=== PATIENT | female | born 1965 | race Two or more races ===

== ENCOUNTER 2020-07-24 11:29 | Outpatient (REF) | payer OTHER, SELFPAY ==
--- NOTE | 2020-07-24 11:35 | XR_ITS ---
EXAMINATION: XR KNEE, RIGHT CLINICAL INFORMATION: Pain in the right knee COMPARISON: X-rays of the right knee October 2017 TECHNIQUE: Four views of the right knee. FINDINGS: Bones and soft tissues are normal. No fracture or joint effusion. Alignment is anatomic. Joint spaces are well maintained. No abnormal soft tissue calcification. XR/XR knee RT 4V IMPRESSION: Normal right knee.
--- NOTE | 2020-07-24 11:35 | XR_ITS ---
EXAMINATION: XR ELBOW, RIGHT CLINICAL INFORMATION: Osteochondropathy COMPARISON: None TECHNIQUE: AP, lateral, and oblique views of the right elbow. FINDINGS: There is slight soft tissue prominence overlying the olecranon bursa region The remaining bones joints and soft tissues are unremarkable. XR/XR elbow RT min 3V IMPRESSION: Suspect soft tissue swelling in the region of the olecranon bursa compatible with bursitis of uncertain etiology. Less likely bursal contusion.
== END 2020-07-24 11:30 | disposition home or self-care (01) ==
LOC: HO.XRAY 11:29
PROVIDERS: PCP Physician Assistant; Visit Provider Physician Assistant
DX: M25.561 Pain in right knee (principal); M93.929 Osteochondropathy, unspecified, unspecified upper arm
CPT/HCPCS: 73080; 73564

== ENCOUNTER 2020-10-15 08:21 | Outpatient (REF) | payer OTHER, SELFPAY ==
--- NOTE | 2020-10-15 | US_ITS ---
EXAMINATION: US ABDOMEN COMPLETE CLINICAL INFORMATION: Abdominal pain. COMPARISON: Ultrasound abdomen 04/29/2020. TECHNIQUE: Real-time imaging of the abdominal viscera. FINDINGS: PANCREAS: Normal. ABDOMINAL AORTA: The proximal, mid, and distal segments are normal in caliber. INFERIOR VENA CAVA: Visualized portions are normal. LIVER: The liver is normal size and contour with increased echogenicity. There is an anechoic cyst right hepatic lobe measuring 0.4 x 0.4 x 0.3 cm. There is a solid echogenic lesion in the right hepatic lobe measuring 1.8 x 1.0 x 1.5 cm, consistent with hemangioma. Previously it measured 1.4 x 1.1 x 1.0 cm. There is no intrahepatic biliary duct dilatation seen. GALLBLADDER: Normal. The gallbladder is physiologically distended without evidence of stones, sludge, polyps, wall thickening or pericholecystic fluid. COMMON BILE DUCT: Normal in caliber measuring 0.4 cm in diameter. RIGHT KIDNEY: There is a midpole anechoic cyst measuring 0.6 x 0.5 x 0.7 cm. No hydronephrosis. No renal calculi or focal parenchymal lesions. The kidney measures 10.4 cm in maximum dimension. LEFT KIDNEY: Normal. No hydronephrosis. No renal calculi or focal parenchymal lesions. The kidney measures 10.0 cm in maximum dimension. SPLEEN: Normal. The spleen measures 8.9 cm in maximum dimension. FREE FLUID: None. US/US abdomen complete IMPRESSION: Diffusely echogenic liver with a small hemangioma right hepatic lobe, minimally increased, and new right hepatic cysts. Anechoic cyst right kidney, new.
== END 2020-10-15 08:22 | disposition home or self-care (01) ==
LOC: HO.US 08:21
PROVIDERS: Visit Provider Physician Assistant
DX: R10.9 Unspecified abdominal pain (principal)
CPT/HCPCS: 76700

== ENCOUNTER → 2020-10-30 09:09 | Outpatient (BNVA) | payer OTHER, SELFPAY | PROVIDERS: PCP Family Medicine; Visit Provider Physician Assistant ==

== ENCOUNTER 2020-11-06 08:27 | Outpatient (REF) | payer OTHER, SELFPAY ==
--- NOTE | ~2020-11-06 | XR_ITS ---
EXAMINATION: XR SHOULDER, RIGHT CLINICAL INFORMATION: Enthesopathy. COMPARISON: None TECHNIQUE: AP external rotation, Grashey, scapular Y, and axillary views of the right shoulder. FINDINGS: No fracture or dislocation. Mild AC joint arthritis. Small inferior humeral head osteophyte. Glenohumeral joint space is maintained. No abnormal soft tissue calcification. Visualized right lung is clear. XR/XR shoulder RT min 2V IMPRESSION: Mild arthritic changes, as detailed above. No acute finding.
== END 2020-11-06 08:28 | disposition home or self-care (01) ==
LOC: HO.XRAY 08:27
PROVIDERS: PCP Physician Assistant; Visit Provider Physician Assistant
DX: M77.8 Other enthesopathies, not elsewhere classified (principal)
CPT/HCPCS: 73030

== ENCOUNTER → 2020-11-10 13:26 | Outpatient (BNVA) | payer OTHER, SELFPAY | PROVIDERS: PCP Physician Assistant; Visit Provider Physician Assistant | DX: M75.81 Other shoulder lesions, right shoulder (principal) | CPT/HCPCS: 99202 ==

== ENCOUNTER 2021-01-24 10:04 | Outpatient (REF) | payer OTHER, SELFPAY ==
--- NOTE | ~2021-01-24 | MM_ITS ---
EXAMINATION: MM SCREENING DIGITAL BREAST TOMOSYNTHESIS, BILATERAL CLINICAL INFORMATION: Screening. Asymptomatic. Family history breast cancer, mother. The lifetime risk of breast cancer based on the Tyrer-Cuzick Model is 15%. COMPARISON: Mammography: 09/27/2018, 11/11/2017, 09/20/2017, 09/10/2016; MRI breasts without and with contrast 01/02/2019. TECHNIQUE: Digital breast tomosynthesis is performed in both the craniocaudal and mediolateral oblique views along with computer-aided detection (CAD). Synthesized 2D images are generated from the tomosynthesis. FINDINGS: There are scattered areas of fibroglandular density (ACR BI-RADS breast composition Category b). Breast tissue composition borders on heterogeneously dense. The left MLO view has 5 mm smooth oval nodular asymmetry upper quadrant 6 cm from nipple with partly obscured margins possibly cyst. No definite correlate on CC view. Patient will be recalled for additional imaging. Nodularity central inner right breast on prior exam is decreased since 2019. The remainder of the bilateral breasts are unremarkable. There is no architectural abnormality or abnormal calcifications. The axilla and skin contours are unremarkable. MM/MM tomosynthesis screening BI IMPRESSION: 1. Left: Nodular asymmetric density upper quadrant on MLO view. 2. Right: No significant changes from prior exam. ASSESSMENT: BI-RADS 0: Incomplete - Need Additional Imaging Evaluation RECOMMENDATION: 1. Additional views of the left breast (3D spot MLO; 3D ML). 2. Targeted ultrasound if warranted after review of the additional views. 3. Radiology department staff will contact the patient for additional imaging. This patient's information was entered into a reminder system with a target due date for their next mammogram.
== END 2021-01-24 10:05 | disposition home or self-care (01) ==
LOC: HO.MAMMO 10:04
PROVIDERS: PCP Family Medicine; Visit Provider Family Medicine
DX: Z12.31 Encounter for screening mammogram for malignant neoplasm of breast (principal)
CPT/HCPCS: 77063; 77067

== ENCOUNTER 2021-02-03 14:34 | Outpatient (REF) | payer OTHER, SELFPAY ==
--- NOTE | ~2021-02-03 | US_ITS ---
EXAMINATION: US DIAGNOSTIC ULTRASOUND BREAST, LEFT CLINICAL INFORMATION: Density upper outer quadrant. COMPARISON: Mammography of same day and January 24, 2021 as well as MRI of January 02, 2019.. TECHNIQUE: Ultrasound of the breast is performed with real-time lovell scale imaging and color Doppler. FINDINGS: Multiple simple cysts are present. There is no solid mass, architectural abnormality, duct ectasia, or edema in the soft tissue planes. Results are discussed with the patient at time of visit. US/US breast LT limited IMPRESSION: No suspicious left breast mass. Multiple cysts. ASSESSMENT: BI-RADS 2: Benign RECOMMENDATION: Routine annual mammography screening due in 12 months. This patient's information was entered into a reminder system with a target due date for their next mammogram.
--- NOTE | ~2021-02-03 | MM_ITS ---
EXAMINATION: MM DIAGNOSTIC DIGITAL BREAST TOMOSYNTHESIS, LEFT Targeted left breast ultrasound CLINICAL INFORMATION: Nodular asymmetric density upper quadrant of the left breast. COMPARISON: Mammography: January 24, 2021 and studies dating back to September 08, 2015 TECHNIQUE: Digital breast tomosynthesis is performed. 2D images are generated from the tomosynthesis. The following views are obtained: Full-field 90 degree mediolateral view and mediolateral oblique view. Spot compression mediolateral oblique study. FINDINGS: The breasts are heterogeneously dense, which may obscure small masses (ACR BI-RADS breast composition Category c). No definite residual abnormal dominant mass is seen. No suspicious grouping of microcalcifications. Targeted ultrasound examination to the upper outer quadrant demonstrated numerous simple appearing cysts with no suspicious solid mass identified and no region of abnormal distal sound shadowing is seen. Results are provided to the patient at time of visit by the technologist. MM/MM tomosynthesis added views L IMPRESSION: No specific mammographic or ultrasound findings to suggest malignancy. ASSESSMENT: BI-RADS 2: Benign RECOMMENDATION: Routine annual mammography screening due in 12 months. This patient's information was entered into a reminder system with a target due date for their next mammogram.
== END 2021-02-03 14:35 | disposition home or self-care (01) ==
LOC: HO.MAMMO 14:34
PROVIDERS: Visit Provider Family Medicine
DX: N64.89 Other specified disorders of breast (principal); N63.21 Unspecified lump in the left breast, upper outer quadrant; N60.02 Solitary cyst of left breast
CPT/HCPCS: 76642; 77061; 77065

== ENCOUNTER 2021-04-02 08:01 | Outpatient (REF) | payer OTHER, SELFPAY ==
[2021-04-02 08:37] LABS: MANUAL DIFF FLAG NO
[2021-04-02 08:44] LABS: Basophils Percent Auto 0.3 % (0-2); Eosinophils Absolute Auto 0.1 X10*3/uL (0.0-0.4); Eosinophils Percent Auto 1.5 % (0-4); Hematocrit 37.2 % (37-47); Hemoglobin 12.7 g/dl (12.0-16.0); Imm Gran Abs Auto 0.02 X10*3/uL (0.00-0.03); Imm Gran Pct Auto 0.3 % (0.0-0.4); Lymphocytes Percent Auto 33.6 % (20-40); Mean Corpuscular HGB Conc 34.1 g/dl (31.0-35.0); Mean Corpuscular Hemoglobin 30.1 pg (27.0-33.0); Mean Corpuscular Volume 88.2 fL (80-98); Mean Platelet Volume 10.1 fL (9.4-12.3); Monocytes Absolute Auto 0.5 X10*3/uL (0.1-1.2); Monocytes Percent Auto 7.7 % (2-11); Neutrophils Absolute Auto 3.3 X10*3/uL (2.0-8.3); Neutrophils Percent Auto 56.6 % (45-73); Platelet Count 191 X10*3/uL (160-400); Red Blood Count 4.22 X10*6/uL (4.20-5.50); Red Cell Distribution Width 11.9 % (11.0-16.0); White Blood Count 5.9 X10*3/uL (4.8-10.8)
[2021-04-02 09:26] LABS: Alanine Aminotransferase 14 U/L (0-31); Albumin Level 4.4 g/dL (3.5-5.0); Alkaline Phosphatase 72 U/L (39-117); Anion Gap 11 (12-20); Aspartate Amino Transferase 19 U/L (5-31); Bilirubin Total 0.4 mg/dL (0.0-1.0); Blood Urea Nitrogen 14 mg/dL (9-16); Calcium 9.2 mg/dL (8.4-10.2); Carbon Dioxide 27 mmol/L (22-29); Chloride 106 mmol/L (96-108); Cholesterol 211 mg/dL; Estimated Glomerular Filt Rate > 60; Glucose Random 100 mg/dL (60-115); HDL Cholesterol 46 mg/dL; LDL Cholesterol Calculated 139 mg/dl; Potassium 4.2 mmol/L (3.3-5.1); Sodium 140 mmol/L (135-145); Total Protein 6.9 g/dL (6.5-8.0); Triglycerides 133 mg/dL
[2021-04-02 09:34] LABS: Estimated Average Glucose 108 mg/dL; Hemoglobin A1c % 5.4 %
[2021-04-03 08:23] LABS: HBS Num1 187.82 mIU/mL (0-7.99); ~Hepatitis B Surface Antibody REACTIVE (Nonreactive)
== END 2021-04-02 08:02 | disposition home or self-care (01) ==
LOC: HO.LAB 08:01
PROVIDERS: Referring Provider Physician Assistant; Visit Provider Physician Assistant
DX: Z13.1 Encounter for screening for diabetes mellitus (principal); Z13.220 Encounter for screening for lipoid disorders; R10.11 Right upper quadrant pain; K76.0 Fatty (change of) liver, not elsewhere classified; R74.01 Elevation of levels of liver transaminase levels
CPT/HCPCS: 36415; 80053; 80061; 83036; 85025; 86706

== ENCOUNTER 2021-04-17 07:39 | Outpatient (REF) | payer OTHER, SELFPAY ==
--- NOTE | ~2021-04-17 | CT_ITS ---
EXAMINATION: CT ABDOMEN AND PELVIS WITH CONTRAST CLINICAL INFORMATION: Left lower quadrant pain COMPARISON: Previous abdominal ultrasound October 2020 and abdominal MRI January 2020 TECHNIQUE: Multidetector volumetric images were obtained from the superior aspect of the liver through the pubic symphysis following administration 85 mL of Omnipaque 350 intravenous contrast. Sagittal and coronal reformatted images were obtained on the technologist's workstation. Oral contrast: Yes This CT examination was performed using dose optimization techniques as appropriate, variously including the following: *Automated exposure control *Adjustment of mA and/or kV according to patient size (this includes techniques or standardized protocols for targeted exams where dose is matched to indication/reason for exam; i.e. extremities or head) *Use of iterative reconstruction technique DLP: 316 mGy-cm FINDINGS: LUNG BASES: The visualized lung bases are unremarkable. LIVER, GALLBLADDER, AND BILIARY TREE: The liver is low in attenuation suggestive of fatty infiltration. There is a small 5 mm low-attenuation lesion in the right lobe of the liver axial image 25 series. This is stable previous MRI and probably represents a cyst. No other focal liver lesion is seen. The gallbladder is normal. There is no biliary duct dilatation. PANCREAS: Unremarkable. SPLEEN: Unremarkable. ADRENAL GLANDS: Unremarkable. KIDNEYS AND URETERS: The kidneys are normal in size, shape, and attenuation. No hydronephrosis, hydroureter, or calculi seen. No perinephric stranding. BLADDER: Unremarkable. GASTROINTESTINAL TRACT: There is mild diverticulosis of the colon. No evidence of diverticulitis is seen. The small and large bowel are otherwise unremarkable. The appendix is unremarkable. ABDOMINAL WALL: No significant hernia is appreciated. LYMPH NODES: Normal. VASCULAR: Unremarkable. PELVIC VISCERA: The uterus may have been removed. No pelvic mass is seen. OSSEOUS STRUCTURES: Unremarkable. CT/CT abdomen pelvis w con IMPRESSION: Fatty liver. Stable small liver cyst. Mild diverticulosis of the colon.
[2021-04-17] MEDS: iohexoL 350 MG/ML 100 ML INFUS..BTL IV (10:59)
[2021-04-17] MEDS: Barium Sulfate Oral (Vanilla) 450 ML ORAL.SUSP 900 ML PO (11:00)
== END 2021-04-17 07:40 | disposition home or self-care (01) ==
LOC: HO.CT 07:39
PROVIDERS: Visit Provider Physician Assistant
DX: R10.32 Left lower quadrant pain (principal)
CPT/HCPCS: 74177; Q9967

== ENCOUNTER 2021-07-06 13:30 | Outpatient (REF) | payer OTHER, SELFPAY ==
--- NOTE | ~2021-07-06 | US_ITS ---
EXAMINATION: US COMPLETE ABDOMEN WITH LIVER ELASTOGRAPHY CLINICAL INFORMATION: Fatty liver COMPARISON: Previous abdominal ultrasound October 2020, CT of the abdomen and pelvis April 2021 and abdominal MRI January 2020 TECHNIQUE: Real-time imaging of the abdominal viscera. Noninvasive ultrasound liver fibrosis assessment is performed using Leann ElastPQ point quantification shear wave elastography (pSWE) with a C5-2 MHz transducer. Multiple elastography samples are obtained. FINDINGS: PANCREAS: The head and body the pancreas are normal. The tail isn't well visualized due to bowel gas. ABDOMINAL AORTA: The proximal, middle, and distal aortic segments are normal in caliber. INFERIOR VENA CAVA: Visualized portions are normal. LIVER: Liver echotexture is slightly increased. There is a 5 x 3 x 4 mm cyst in the right lobe of the liver. There is a 1.7 x 1 x 1.1 cm hyperechoic areas seen in the peripheral right lobe the liver near the gallbladder. This is is similar to previous ultrasound exams. No corresponding abnormality is seen on prior CT or MRI exam. The liver is normal in shape and size. No biliary duct dilatation. The right lobe measures 14.6 cm in length. The left lobe measures 10 cm in length. Portal flow is normal/hepatopedal Shear wave liver elastography median stiffness is 1.3 m/s (reference: normal median stiffness is 1.3 m/s or less). IQR/median stiffness to assess sampling precision is 0.18 (reference: good quality data set is IQR/median stiffness of 0.15 or less). GALLBLADDER: Normal. The gallbladder is physiologically distended without evidence of stones, sludge, polyps, wall thickening or pericholecystic fluid. COMMON BILE DUCT: Normal in caliber measuring 0.4 cm in diameter. RIGHT KIDNEY: Normal. No hydronephrosis. No renal calculi or focal parenchymal lesions. The kidney measures 10 cm in maximum dimension. LEFT KIDNEY: Normal. No hydronephrosis. No renal calculi or focal parenchymal lesions. The kidney measures 9.5 cm in maximum dimension. SPLEEN: Normal. The spleen measures 8.6 cm in maximum dimension. FREE FLUID: None. US/US abdomen comp w elastography IMPRESSION: 1. Impression: Slightly echogenic liver. Stable small liver cyst. Stable 1.7 x 1.1 x 1 cm hyperechoic area in the peripheral right lobe the liver from prior ultrasounds. No corresponding abnormality is seen on prior CT or MRI exams. Limited visualization of the tail the pancreas. 2. Liver elastography: Slightly limited due to sampling error. Normal liver stiffness. REFERENCE: Society of Radiologists in Ultrasound Liver Stiffness Thresholds (2020): LIVER STIFFNESS THRESHOLDS: *Liver Stiffness equal or less than 1.3 m/s: High probability of being normal. *Liver Stiffness less than 1.7 m/s: In the absence of other known clinical signs, rules out compensated advanced chronic liver disease. *Liver Stiffness 1.7-2.1 m/s: Suggestive of compensated advanced chronic liver disease but need further test for confirmation. *Liver Stiffness over 2.1 m/s: Rules in compensated advanced chronic liver disease. *Liver Stiffness over 2.4 m/s: Suggestive of clinically significant portal hypertension. QUALITY OF DATA SET: *IQR/Median value equal or less than 0.15 implies a quality data set. *IQR/Median value over 0.15 implies a poor quality data set. SIGNIFICANT CHANGE FROM PRIOR EXAM: Significant change if liver stiffness measurement is 10% or greater from prior exam. OTHER CONSIDERATIONS: The stage of liver fibrosis may be overestimated in the setting of acute hepatitis, liver inflammation, elevated liver function tests, hepatic vascular congestion, obstructive cholestasis, non-fasting state, and infiltrative diseases such as amyloidosis and lymphoma. In some patients with NAFLD, the liver stiffness thresholds for compensated advanced chronic liver disease may be lower. In causes other than viral hepatitis and NAFLD, liver stiffness thresholds are not well established.
== END 2021-07-06 13:31 | disposition home or self-care (01) ==
LOC: HO.US 13:30
PROVIDERS: PCP Physician Assistant; Visit Provider Physician Assistant
DX: K76.0 Fatty (change of) liver, not elsewhere classified (principal); D18.00 Hemangioma unspecified site
CPT/HCPCS: 76705; 76981

== ENCOUNTER 2021-07-29 12:47 | Outpatient (REF) | payer OTHER, SELFPAY ==
[2021-07-29 13:55] LABS: COVID-19 Test Negative (Negative)
== END 2021-07-29 12:48 | disposition home or self-care (01) ==
LOC: HO.LAB 12:47
PROVIDERS: Visit Provider Internal Medicine
DX: Z20.828 Contact with and (suspected) exposure to other viral communicable diseases (principal)
CPT/HCPCS: 36415; 87635; C9803

== ENCOUNTER 2021-09-01 08:21 | Outpatient (REF) | payer OTHER, SELFPAY ==
--- NOTE | ~2021-09-01 | XR_ITS ---
EXAMINATION: XR HIP, RIGHT CLINICAL INFORMATION: Pain COMPARISON: Pelvis x-ray June 2019 TECHNIQUE: Two views of the right hip. FINDINGS: Bones and soft tissues are normal. No fracture. Alignment is anatomic. Hip joint space is maintained. XR/XR hip RT min 2V IMPRESSION: Normal right hip.
--- NOTE | ~2021-09-01 | XR_ITS ---
EXAMINATION: XR HAND, RIGHT CLINICAL INFORMATION: Pain COMPARISON: None TECHNIQUE: PA, lateral, and oblique views of the right hand. FINDINGS: Bone alignment is normal. No fracture or dislocation is seen. There is mild arthritis at the DIP joint of the second finger with small osteophytes. Joint spaces are otherwise normal. There are small soft tissue ossifications or calcifications adjacent to the DIP joint of the second finger. Soft tissues are otherwise unremarkable. XR/XR hand RT 2V IMPRESSION: Mild arthritis at the DIP joint of the second finger. Otherwise unremarkable exam.
== END 2021-09-01 08:22 | disposition home or self-care (01) ==
LOC: HO.XRAY 08:21
PROVIDERS: PCP Physician Assistant; Visit Provider Physician Assistant
DX: M25.551 Pain in right hip (principal); M79.641 Pain in right hand
CPT/HCPCS: 73120; 73502

== ENCOUNTER 2021-09-01 08:53 | Emergency (ER) | payer OTHER, SELFPAY ==
[2021-09-01 09:16] VITALS: BP 132/78; PULSE 94; RESP 18; TEMP 36.7; O2SAT 98; BMI 25.4
[2021-09-01] MEDS: Acetaminophen 325 MG TABLET 975 MG PO (09:37)
--- NOTE | 2021-09-01 10:56 | ED_ITS ---
HPI - Extremity Problem General Chief complaint: Extremity Injury, Upper Stated complaint: Thumb pain Time Seen by Provider: 09/01/21 09:16 Source: patient Mode of arrival: ambulatory Limitations: no limitations History of Present Illness HPI Narrative: 56-year-old female presenting to the ED after she had an outpatient x-ray of her right hand and her right hip from her primary care provider although she found out that she would not get the results today therefore she came to the emergency department for further evaluation and treatment. She reports that she has been having right thumb pain for the past 3 weeks and she is unsure why she did not remember falling or any trauma to the site. She reports that it feels like it gets stuck at times. She also reports atraumatic right hip pain for the past 3 days. Denies any fevers, chills, dizziness, headache, neck pain/stiffness, trouble swallowing or breathing, chest pain or shortness of breath, dyspnea on exertion, orthopnea, palpitations, extremity edema, abdominal pain, back pain, focal weakness, recent travel or sick contacts, history of PVD disorder, history of DVT or PE, recent mobilization surgery, any estrogen usage. Or any other symptoms complaints or concerns at this time. MD Complaint: extremity pain Onset (ago): week(s) (Right thumb pain for 2-3 weeks and right hip pain for the past 3 days) Pain Consistency: constant Location: right, upper extremity and lower extremity Quality: aching Radiation: none Relieving factors: nothing Exacerbating factors: range of motion and palpation Associated symptoms: denies other symptoms Related Data Home Medications Medication Instructions Recorded Confirmed citalopram 20 mg tablet 20 mg PO DAILY 07/10/20 03/23/21 clonazepam 0.5 mg tablet 0.5 mg PO DAILY PRN 07/10/20 03/23/21 olanzapine 5 mg tablet 5 mg PO BEDTIME 07/10/20 03/23/21 omeprazole 20 mg capsule,delayed 20 mg PO DAILY 07/10/20 03/23/21 release Previous Rx's Medication Instructions Recorded leg brace (Knee Support Brace) #1 ea 07/10/20 meloxicam 15 mg tablet 15 mg PO DAILY #30 tab 09/02/20 sumatriptan succinate 25 mg tablet 25 mg PO Q2-4H PRN 30 Days #9 tab 09/30/20 cyclobenzaprine 10 mg tablet 10 mg PO TID PRN 7 Days #21 tab 10/21/20 omeprazole 20 mg capsule,delayed 20 mg PO DAILY #30 cap 10/30/20 release albuterol sulfate 90 mcg/actuation 2 puff INHALATION Q6H PRN 30 Days 02/04/21 aerosol inhaler #8.5 g cetirizine 10 mg capsule (Allergy 10 mg PO DAILY PRN 30 Days #30 cap 02/05/21 Relief (cetirizine)) fluticasone propionate 50 1 spray INTRANASAL DAILY 30 Days 02/05/21 mcg/actuation nasal #16 g spray,suspension meclizine 25 mg tablet 25 mg PO DAILY PRN 14 Days #14 tab 03/23/21 cyclobenzaprine 10 mg tablet 10 mg PO Q8H PRN #14 tab 09/01/21 tramadol 50 mg tablet 50 mg PO Q8H PRN #14 tab 09/01/21 Allergies Allergy/AdvReac Type Severity Reaction Status Date / Time oxycodone [From PERCOCET] Allergy Intermediate VOMITING/DI Verified 09/01/21 09:21 MALU tramadol [TRAMADOL] Allergy Intermediate DIZZINESS Verified 09/01/21 09:21 acetaminophen [Percocet] Allergy Unknown vomitting/d Verified 09/01/21 09:21 jason Review of Systems Review of Systems: Constitutional : No Weight loss, No Fever, No Chills, No Night Sweats, No Fatigue, No Malaise ENT/Mouth : No Hearing loss, No Ear Pain, No Nasal Congestion, No Sinus Pain, No Hoarseness, No sore throat, No Rhinorrhea, No Swallowing Difficulty Eyes: No Eye Pain, No Swelling, No Redness, No Foreign Body, No Discharge, No Vision Changes Cardiovascular : No Chest Pain, No SOB, No Dyspnea on Exertion, No Orthopnea, No Edema, No Palpitations Respiratory : No Cough, No Sputum, No Wheezing, No Smoke Exposure, No Dyspnea Gastrointestinal : No Nausea, No Vomiting, No Diarrhea, No Constipation, No abdominal Pain, No Hematochezia, No Melena Genitourinary : no irregular bleeding, No Dysuria, No Urinary Frequency, No Hematuria, No Urinary Incontinence, No Urgency, No Flank Pain, No Urinary Flow Changes, No Hesitancy Musculoskeletal : + joint pain, No Myalgias, No Joint Swelling Skin : No Skin Lesions, No rash Neuro : No Weakness, No Numbness, No Paresthesias, No Loss of Consciousness, No Dizziness, No Headache Psych : No Anxiety/Panic, No Depression, No SI/HI/AH/VH, No Social Issues, Heme/Lymph: No Bruising, No Bleeding,No Lymphadenopathy Endocrine : No Polyuria, No Polydipsia, No Temperature Intolerance Yes all other systems are reviewed and are negative [facility] Past Medical History Attestation statement: The following information was validated with the patient. Medical History Abdominal pain NAFLD (nonalcoholic fatty liver disease) Surgical History H/O colonoscopy History of breast biopsy History of carpal tunnel surgery of left wrist History of carpal tunnel surgery of right wrist History of hysterectomy History of thumb surgery History of toe surgery Family History Family History Father COPD (chronic obstructive pulmonary disease) Smoker Maternal Aunt Hypertension Sister Breast cancer Mother Hypertension Social History Social History Household Members: Children Housing: Apartment Alcohol intake: never Patient Tobacco Use Status: Never used Tobacco e-Cigarette/Vaping Use: Never Used Second Hand Smoke Exposure: Yes Advance Directives: No Advance Directives Information Provided: Yes Patient : No service: No Current occupational status: employed 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 Blood pressure normal Heart rate normal. Respiration rate normal. Temperature normal. Oxygen saturation normal. Appearance: Alert. Oriented X3. No acute distress. Head: Normal external exam. Normocephalic. Atraumatic. Eyes: PERRLA. EOMI. Conjunctiva and sclera normal. Eyelids normal. ENT: Pharynx normal. Uvula midline. Moist mucous membranes. Neck: Normal inspection. Neck supple. FROM. CVS: Normal heart rate and rhythm. Respiratory: No respiratory distress. Painless inspiration. Skin: Skin warm and dry. Normal skin color. Normal skin turgor. No rashes/lesions/lacerations noted. Extremities: Patient with tenderness palpation to the right thumb at the D IP aspect she has full range of motion no obvious deformities no extremity edema and no signs of infection or obvious ligamentous or tendon injury. Patient with tenderness palpation to the right hip at the lateral aspect no infection soft tissue swelling erythema. Patient has full range of motion of the right hip. No obvious ligamentous or tendon injury to the right hip. No lower extremity edema or calf tenderness is noted. Otherwise all other extremities exhibit normal range of motion and nontender. Neuro: Oriented X 3. No motor deficit. No sensory deficit. Reflexes normal. Normal steady gait. No focal neuro deficits noted. Vascular: + radial pulses/+ 2 distal pedal pulses/+2 dorsalis pedis b/l. Normal cap refill. No cyanosis noted to upper extremity nails and lower extremity toes nails. Course Course Course Narrative: 56-year-old female presenting to the ED after she had an outpatient x-ray of her right hand and her right hip from her primary care provider although she found out that she would not get the results today therefore she came to the emergency department for further evaluation and treatment. She reports that she has been having right thumb pain for the past 3 weeks and she is unsure why she did not remember falling or any trauma to the site. She reports that it feels like it gets stuck at times. She also reports atraumatic right hip pain for the past 3 days. Denies any fevers, chills, dizziness, headache, neck pain/stiffness, trouble swallowing or breathing, chest pain or shortness of breath, dyspnea on exertion, orthopnea, palpitations, extremity edema, abdominal pain, back pain, focal weakness, recent travel or sick contacts, history of PVD disorder, history of DVT or PE, recent mobilization surgery, any estrogen usage. Or any other symptoms complaints or concerns at this time. Patient had outpatient x-rays obtained and decided to come here to have them read faster I was able to contact radiology and x-rays were read and revealed arthritis to the right hand at the 2nd finger otherwise no other acute processes and normal right hip x-ray. Therefore I printed out the results and explained to the patient that most likely she has muscle strains although unable to rule out tendon or ligament injury to the right hand therefore she would need to follow-up with her primary care provider and to return if any new or worsening symptoms. Will treat symptomatically. Patient understands agrees with this. MDM - Extremity (Nontraumatic) Medical Records Attestation: I reviewed the patient's medical records. Imaging Data Right hand/right hip x-rays: Attestation: I personally reviewed and interpreted this imaging study as follows: Radiologist's impression: FINDINGS: Bones and soft tissues are normal. No fracture. Alignment is anatomic. Hip joint space is maintained.? XR/XR hip RT min 2V IMPRESSION: Normal right hip. FINDINGS: Bone alignment is normal. No fracture or dislocation is seen. There is mild arthritis at the DIP joint of the second finger with small osteophytes. Joint spaces are otherwise normal. There are small soft tissue ossifications or calcifications adjacent to the DIP joint of the second finger. Soft tissues are otherwise unremarkable. XR/XR hand RT 2V IMPRESSION: Mild arthritis at the DIP joint of the second finger. Otherwise unremarkable exam. Discharge Plan Discharge Clinical Impression: Arthritis, Strain of muscle of right hip, Pain of right thumb Patient Disposition: Home, Self-Care Instructions: Muscle Strain (ED), Arthralgia (ED), Arthrodesis (DC) Prescriptions: New tramadol 50 mg tablet 50 mg PO Q8H PRN (Reason: pain) Qty: 14 RF: 0 cyclobenzaprine 10 mg tablet 10 mg PO Q8H PRN (Reason: Muscle spasm) Qty: 14 RF: 0 No Action meloxicam 15 mg tablet 15 mg PO DAILY Qty: 30 RF: 3 albuterol sulfate 90 mcg/actuation HFA aerosol inhaler 2 puff inhalation Q6H PRN (Reason: shortness of breath or wheezing) 30 Days Qty: 8.5 RF: 1 fluticasone propionate 50 mcg/actuation spray,suspension 1 spray intranasal DAILY 30 Days Qty: 16 RF: 1 Allergy Relief (cetirizine) 10 mg capsule 10 mg PO DAILY PRN (Reason: allergy symptoms) 30 Days Qty: 30 RF: 3 meclizine 25 mg tablet 25 mg PO DAILY PRN (Reason: dizziness) 14 Days Qty: 14 RF: 0 sumatriptan succinate 25 mg tablet 25 mg PO Q2-4H PRN (Reason: migraine headache) 30 Days Qty: 9 RF: 0 cyclobenzaprine 10 mg tablet 10 mg PO TID PRN (Reason: muscle spasm) 7 Days Qty: 21 RF: 3 citalopram 20 mg tablet 20 mg PO DAILY RF: 0 olanzapine 5 mg tablet 5 mg PO BEDTIME RF: 0 clonazepam 0.5 mg tablet 0.5 mg PO DAILY PRNRF: 0 omeprazole 20 mg capsule,delayed release(DR/EC) 20 mg PO DAILY RF: 0 (DME) Knee Support Brace Misc See Rx Instructions .ROUTE .MEDSUPPLY Qty: 1 RF: 0 omeprazole 20 mg capsule,delayed release(DR/EC) 20 mg PO DAILY Qty: 30 RF: 5 Referrals: Fahad Bee PA-C [Primary Care Provider] - 2 days Print Language: Hungarian
== END 2021-09-01 11:07 | disposition home or self-care (01) ==
PROVIDERS: Emergency Provider Emergency Medicine; PCP Physician Assistant
DX: M79.644 Pain in right finger(s) (principal); S76.011A Strain of muscle, fascia and tendon of right hip, initial encounter; M19.041 Primary osteoarthritis, right hand; X58.XXXA Exposure to other specified factors, initial encounter; Y93.9 Activity, unspecified; Y92.9 Unspecified place or not applicable; Y99.9 Unspecified external cause status
CPT/HCPCS: 99283

== ENCOUNTER → 2021-10-20 10:20 | Outpatient (BNVA) | payer OTHER, SELFPAY | PROVIDERS: PCP Physician Assistant; Visit Provider Orthopaedic Surgery | DX: M65.311 Trigger thumb, right thumb (principal) | CPT/HCPCS: 99202 ==

== ENCOUNTER 2021-11-12 08:27 | Day surgery (SDC) | payer OTHER, SELFPAY ==
[2021-11-12 08:39] VITALS: BP 114/68; PULSE 64; RESP 16; TEMP 37.2; O2SAT 98
[2021-11-12 08:48] VITALS: BMI 24.3
--- NOTE | 2021-11-12 10:45 | MHC.SHP ---
Pre-Procedural Eval Section A Date of Service: 11/12/21 The patient is an INPATIENT: No Changes since office visit: No Cold of Flu in the past 2 weeks, No New Medical Problems, No Changes in Medication and No Patient answered all questions The History & Physical has been completed within 30 days and I have reviewed it.: Yes Section B Chief Complaint: Trigger Thumb Allergies: Allergies Allergy/AdvReac Type Severity Reaction Status Date / Time oxycodone [From PERCOCET] Allergy Intermediate VOMITING/DI Verified 10/20/21 11:16 ZZINESS tramadol [TRAMADOL] Allergy Intermediate DIZZINESS Verified 10/20/21 11:16 acetaminophen [Percocet] Allergy Unknown vomitting/d Verified 10/20/21 11:16 izziness Plan I have reviewed the history and physical and performed a pertinent physical examination on my patient. No changes have occurred unless specified.
--- NOTE | 2021-11-12 10:46 | W.PM.OPN ---
Operative Note Operative Note Date of Service: 11/12/21 Narrative: Operative Note Preop diagnosis: 1. right thumb Trigger finger Postop diagnosis: 1. right thumb Trigger finger Procedure: 1. right thumb A1 dotty release Surgeon: Arlene Smith MD Anesthesia: local block using 1% lidocaine with epinephrine Findings: No locking or catching after A1 dotty release EBL: Less than 5 mL Tourniquet time: None Specimens: None Complications: None Disposition: Brought to recovery room in stable condition Plan: Follow-up for 10-14 days for wound check and suture removal Indications: The patient is 56 years old, with a right trigger thumb that has been unresponsive to nonoperative management. The risks and benefits of operative treatment including but not limited to risk of damage to blood vessels, nerves, tendons, infection, persistent pain, persistent symptoms, recurrence or possible need for additional surgery were discussed with the patient and the patient wishes to proceed with surgery. Procedure: Once consent was obtained a local block was performed in the preop area using a combination of 1% lidocaine with epinephrine. The patient was then brought back to the operating suite and placed on the operative table in supine position. A tourniquet was applied to the proximal aspect of the right upper extremity and the limb was prepped and draped in a standard surgical fashion. Once assured that we had a good block, a 1.5 cm oblique incision was made centered over the A1 dotty of the right thumb . The incision was made through the skin to the subcutaneous tissues using a #15 blade. Careful dissection was made down to the level of the A1 dotty using tenotomy scissors, with care being taken to protect the nearby neurovascular structures. A longitudinal incision was made in the A1 dotty 1st using a #15 blade, then using tenotomy scissors under direct visualization. The A1 dotty was noted to be thickened. Following our A1 dotty release, we no longer saw any locking or catching of the digit with flexion and extension. Once satisfied with our A1 dotty release the wound was copiously irrigated with normal saline and hemostasis was obtained with a brief period of local pressure. The skin edges were reapproximated with some 5.0 nylon suture material and a sterile dressing was applied. The patient appears to have tolerated the procedure well and with no complications. All digits were well vascularized at the conclusion of the case.
[2021-11-12 11:03] VITALS: BP 115/71; PULSE 67; RESP 16; TEMP 36.5; O2SAT 97
== END 2021-11-12 11:32 | disposition home or self-care (01) ==
PROVIDERS: PCP Physician Assistant; Visit Provider Orthopaedic Surgery
PROC: (CPT 26055; principal; 2021-11-12 10:20)
DX: M65.311 Trigger thumb, right thumb (principal); M19.041 Primary osteoarthritis, right hand; K76.0 Fatty (change of) liver, not elsewhere classified; K21.9 Gastro-esophageal reflux disease without esophagitis; Z79.899 Other long term (current) drug therapy; Z88.8 Allergy status to other drugs, medicaments and biological substances
CPT/HCPCS: 26055

== ENCOUNTER → 2021-11-18 10:58 | Outpatient (BNVA) | payer OTHER, SELFPAY | PROVIDERS: PCP Physician Assistant; Referring Provider Physician Assistant; Visit Provider Physician Assistant ==

== ENCOUNTER → 2021-11-24 13:17 | Outpatient (BNVA) | payer OTHER, SELFPAY | PROVIDERS: PCP Physician Assistant; Visit Provider Physician Assistant | DX: Z13.89 Encounter for screening for other disorder (principal) ==

== ENCOUNTER → 2021-11-25 11:21 | Outpatient (BNVA) | payer OTHER, SELFPAY | PROVIDERS: PCP Physician Assistant; Visit Provider Physician Assistant | DX: Z09 Encounter for follow-up examination after completed treatment for conditions other than malignant neoplasm (principal); Z87.39 Personal history of other diseases of the musculoskeletal system and connective tissue | CPT/HCPCS: 99212 ==

== ENCOUNTER → 2022-02-01 14:33 | Outpatient (BNVA) | payer OTHER, SELFPAY | PROVIDERS: PCP Physician Assistant; Visit Provider Physician Assistant | DX: Z13.89 Encounter for screening for other disorder (principal) ==

== ENCOUNTER 2022-02-22 09:12 | Outpatient (REF) | payer OTHER, SELFPAY ==
--- NOTE | ~2022-02-22 | XR_ITS ---
EXAMINATION: XR CERVICAL SPINE CLINICAL INFORMATION: Neck pain COMPARISON: None TECHNIQUE: 3 views of the cervical spine were obtained. FINDINGS: There are no prevertebral soft tissue or bony abnormalities demonstrated. No compression fractures or subluxations are identified. Alignment is maintained at the atlanto-axial articulation. The disc spaces are preserved. No endplate changes are seen. The prevertebral soft tissues are normal. The foramina are patent. XR/XR cervical spine 2V IMPRESSION: Unremarkable examination.
== END 2022-02-22 09:13 | disposition home or self-care (01) ==
LOC: HO.XRAY 09:12
PROVIDERS: PCP Physician Assistant; Visit Provider Nurse Practitioner Family
DX: M54.2 Cervicalgia (principal)
CPT/HCPCS: 72040

== ENCOUNTER 2022-05-05 13:23 | Outpatient (REF) | payer OTHER, SELFPAY ==
--- NOTE | 2022-05-05 15:00 | ECG_ITS ---
Test Reason : orthostatic hypotension Blood Pressure : / mmHG Vent. Rate : 077 BPM Atrial Rate : 077 BPM P-R Int : 206 ms QRS Dur : 090 ms QT Int : 384 ms P-R-T Axes : 064 025 056 degrees QTc Int : 434 ms Normal sinus rhythm Normal ECG When compared with ECG of 03-JAN-2020 16:47, No significant change was found Referred By: Fahad Bee Electronically Signed By:PARISH JORDAN
[2022-05-05 15:43] LABS: Hematocrit 36.4 % (37.0-47.0); Hemoglobin 12.4 g/dl (12.0-16.0); Mean Corpuscular HGB Conc 34.1 g/dl (31.0-35.0); Mean Corpuscular Hemoglobin 29.2 pg (27.0-33.0); Mean Corpuscular Volume 85.8 fL (80.0-98.0); Mean Platelet Volume 10.6 fL (9.4-12.3); Platelet Count 207 X10*3/uL (160-400); Red Blood Count 4.24 X10*6/uL (4.20-5.50); Red Cell Distribution Width 12.1 % (11.0-16.0); White Blood Count 7.4 X10*3/uL (4.8-10.8)
[2022-05-05 16:05] LABS: Anion Gap 15 (12-20); Blood Urea Nitrogen 16 mg/dL (9-16); Calcium 9.1 mg/dL (8.4-10.2); Carbon Dioxide 26 mmol/L (22-29); Chloride 105 mmol/L (96-108); Estimated Glomerular Filt Rate > 60; Glucose Random 99 mg/dL (60-115); Iron 62 mcg/dL (30-160); Percent Iron Saturation 20 % (15-50); Sodium 142 mmol/L (135-145); Total Iron Binding Capacity 311 mcg/dL (228-428); Unsaturated Iron Binding 249 ug/dL
[2022-05-08 00:36] LABS: TS Negative Control Passed; TS Panel A 1; TS Panel B 0; TS Positive Control Passed; TSpotTB Negative (Negative)
== END 2022-05-05 13:24 | disposition home or self-care (01) ==
LOC: HO.LAB 13:23
PROVIDERS: Absent Provider Physician Assistant; PCP Physician Assistant; Visit Provider Nurse Practitioner Family
DX: I95.1 Orthostatic hypotension (principal); D50.9 Iron deficiency anemia, unspecified; Z11.1 Encounter for screening for respiratory tuberculosis
CPT/HCPCS: 36415; 80048; 83540; 85027; 86481; 93005

== ENCOUNTER 2022-08-20 10:27 | Outpatient (REF) | payer OTHER, SELFPAY ==
--- NOTE | ~2022-08-20 | MM_ITS ---
EXAMINATION: MM SCREENING DIGITAL BREAST TOMOSYNTHESIS, BILATERAL CLINICAL INFORMATION: Screening. Asymptomatic. Family history breast cancer, mother. The lifetime risk of breast cancer based on the Tyrer-Cuzick Model is 9%. COMPARISON: Mammography: 02/03/2021, 01/24/2021, 09/27/2018, left breast ultrasound 02/03/2021; outside mammography 09/20/2017 ([facility]). TECHNIQUE: Digital breast tomosynthesis is performed in both the craniocaudal and mediolateral oblique views along with computer-aided detection (CAD). Synthesized 2D images are generated from the tomosynthesis. Additional left MLO view is provided. FINDINGS: There are scattered areas of fibroglandular density (ACR BI-RADS breast composition Category b). Left breast shows no significant changes from prior studies. There is no interval mass or architectural abnormality. Biopsy clip marker again seen central mid 9:00 position. Neither breast shows abnormal calcifications. The axilla and skin contours are unremarkable. Right mammography suggests a 1.3 cm smooth oval equal attenuation mass central mid 12:00 position, with obscured margins, possibly a cyst. MM/MM tomosynthesis screening BI IMPRESSION: Right: -Suspect 1.3 cm oval equal attenuation mass central mid 12:00 position with obscured margins, possibly a cyst. Left: -No mammographic evidence of malignancy. ASSESSMENT: BI-RADS 0: Incomplete - Need Additional Imaging Evaluation RECOMMENDATION: 1. Additional views of the right breast (spot CC, spot ML). 2. Targeted ultrasound if warranted after review of the additional views. 3. Radiology department staff will contact the patient for additional imaging. This patient's information was entered into a reminder system with a target due date for their next mammogram.
== END 2022-08-20 10:28 | disposition home or self-care (01) ==
LOC: HO.MAMMO 10:27
PROVIDERS: PCP Physician Assistant; Visit Provider Physician Assistant
DX: Z12.31 Encounter for screening mammogram for malignant neoplasm of breast (principal)
CPT/HCPCS: 77063; 77067

== ENCOUNTER 2022-09-03 13:29 | Outpatient (REF) | payer OTHER, SELFPAY | END 2022-09-03 13:30 | disposition home or self-care (01) | LOC: HO.MAMMO 13:29 | PROVIDERS: PCP Physician Assistant; Visit Provider Physician Assistant | DX: R92.2 Inconclusive mammogram (principal) | CPT/HCPCS: 76642; 77061; 77065 ==

== ENCOUNTER 2022-11-18 12:29 | Emergency (ER) | payer OTHER, SELFPAY ==
--- NOTE | ~2022-11-18 | XR_ITS ---
EXAMINATION: XR CHEST CLINICAL INFORMATION: Chest pain and shortness of breath COMPARISON: 01/03/2020 TECHNIQUE: 2 views of the chest were obtained. FINDINGS: No significant abnormality is noted involving the heart, lungs, mediastinum, bony thorax or soft tissues. XR/XR chest 2V IMPRESSION: Unremarkable examination.
--- NOTE | 2022-11-18 12:36 | ED_ITS ---
HPI - Chest Pain General Chief Complaint: Chest Pain <Smiley Whitley CNP - Last Filed: 11/18/22 12:43> Stated Complaint: Chest Pain <Smiley Whitley CNP - Last Filed: 11/18/22 12:43> Time Seen by Provider: 11/18/22 17:02 <Smiley Whitley CNP - Last Filed: 11/18/22 12:43> Source: patient <Main Chau MD - Last Filed: 11/19/22 01:35> Mode of arrival: ambulatory <Main Chau MD - Last Filed: 11/19/22 01:35> Limitations: no limitations <Main Chau MD - Last Filed: 11/19/22 01:35> History of Present Illness HPI narrative: Patient with multiple complaints complaining of whole body aches for last 2 weeks poor sleep no shortness of breath nausea no vomiting does have chest pain back pain extremity pain supposed the PCP next patient taking Tylenol/ ibuprofen without much relief denies significant depression does have anxiety no shortness of breath not on any statins <Main Chau MD - Last Filed: 11/19/22 01:35> Related Data Home Medications: Previous Rx's Medication Instructions Recorded albuterol sulfate 90 mcg/actuation 2 puff inhalation Q6H PRN 02/04/21 aerosol inhaler shortness of breath or wheezing 30 days #8.5 grams fluticasone propionate 50 1 spray intranasal DAILY 30 days 02/05/21 mcg/actuation nasal #16 grams spray,suspension omeprazole 20 mg capsule,delayed 20 mg PO DAILY #30 caps 11/24/21 release pantoprazole 20 mg tablet,delayed 20 mg PO QAM #30 tabs 02/01/22 release cetirizine 10 mg capsule (Allergy 10 mg PO DAILY PRN allergy 02/15/22 Relief (cetirizine)) symptoms 30 days #30 caps comp.stocking,knee,long,medium #2 ea 05/11/22 midodrine 5 mg tablet 5 mg PO BID 30 days #60 tabs 11/16/22 cyclobenzaprine 10 mg tablet 10 mg PO BID muscle spasm 14 days 11/17/22 #28 tabs ibuprofen 600 mg tablet 600 mg PO Q6H PRN fever or pain 11/18/22 #30 tabs <Smiley Whitley CNP - Last Filed: 11/18/22 12:43> Allergies/Adverse Reactions: Allergies Allergy/AdvReac Type Severity Reaction Status Date / Time oxycodone [From PERCOCET] Allergy Intermediate VOMITING/DI Verified 05/05/22 14:27 ZZINESS tramadol [TRAMADOL] Allergy Intermediate DIZZINESS Verified 05/05/22 14:27 acetaminophen [Percocet] Allergy Unknown vomitting/d Verified 05/05/22 14:27 izziness <Smiley Whitley CNP - Last Filed: 11/18/22 12:43> Review of Systems Review of Systems: Constitutional : No Weight loss, No Fever, No Chills ENT/Mouth : No sore throat, No Rhinorrhea Eyes: No Eye Pain, No Swelling Cardiovascular : No Chest Pain, no palpitations Respiratory : No Cough, No Sputum, no shortness of breath Gastrointestinal : no Nausea, No Vomiting, No Diarrhea, No abdominal Pain, no black stools Genitourinary : No Dysuria, No Urinary Frequency Musculoskeletal : No joint pain, ++ Myalgias, No Joint Swelling Skin : No Skin Lesions, No rash Neuro : No Weakness, No Numbness, No Dizziness, No Headache Psych : No Anxiety/Panic, No Depression Heme/Lymph: No Bruising, No Lymphadenopathy Endocrine : No Polyuria, No Polydipsia All other systems reviewed and are negative <Main Chau MD - Last Filed: 11/19/22 01:35> Yes all other systems are reviewed and are negative <Main Chau MD - Last Filed: 11/19/22 01:35> PMFSH Past Medical History Medical History: Medical History Abdominal pain Acid reflux NAFLD (nonalcoholic fatty liver disease) <Smiley Whitley CNP - Last Filed: 11/18/22 12:43> Surgical History: Surgical History H/O colonoscopy History of breast biopsy History of carpal tunnel surgery of left wrist History of carpal tunnel surgery of right wrist History of hysterectomy History of thumb surgery History of toe surgery <Smiley WhitleyKIEL - Last Filed: 11/18/22 12:43> Family History Family History: Family History Father COPD (chronic obstructive pulmonary disease) Smoker Maternal Aunt Hypertension Sister Breast cancer Mother Hypertension <Smiley Whitley PHOTOCOPIER TECHNICIAN - Last Filed: 11/18/22 12:43> Social History Social History: Social History Household Members: Children Housing: Apartment Alcohol intake: never Patient Tobacco Use Status: Never used Tobacco e-Cigarette/Vaping Use: Never Used Second Hand Smoke Exposure: Yes Advance Directives: No Advance Directives Information Provided: No service: No Current occupational status: unemployed 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 Cognitive needs: No Hearing needs: No Vision needs: Yes <Smiley Whitley KIEL - Last Filed: 11/18/22 12:43> Physical Exam Vital Signs: Vital Signs: Last Vital Signs Temp 97.8 F 11/18/22 17:53 Pulse 59 11/18/22 17:53 Resp 16 11/18/22 17:53 BP 134/77 11/18/22 17:53 Pulse Ox 97 11/18/22 17:53 O2 Del Method 11/18/22 17:53 BMI result Body Mass Index 26.4 <Smiley Whitley PHOTOCOPIER TECHNICIAN - Last Filed: 11/18/22 12:43> Vital Signs: Last Vital Signs Temp 97.8 F 11/18/22 17:53 Pulse 59 11/18/22 17:53 Resp 16 11/18/22 17:53 BP 134/77 11/18/22 17:53 Pulse Ox 97 11/18/22 17:53 O2 Del Method 11/18/22 17:53 BMI result Body Mass Index 26.4 <Main Chau MD - Last Filed: 11/19/22 01:35> Appearance: Alert. Oriented X3. No acute distress. Eyes: PERRLA, No Nystagmus ENT: Pharynx normal. Oral Mucosa moist Neck: Normal inspection. Neck supple. CVS: Normal heart rate and rhythm. Pulses normal. Respiratory: No respiratory distress. Equal air entry bilateral, no wheezing/rales/rhonchi Abdomen: Soft and nontender. Bowel sounds are present, no mass palpable, no CVA tenderness Skin: Skin warm and dry. Normal skin color. Normal skin turgor. Extremities: No lower extremity edema. No calf tenderness Neuro: Oriented X 3. No motor deficit. No sensory deficit.No cerebellar signs , cranial nerves II-XII intact <Main Chau MD - Last Filed: 11/19/22 01:35> Course Course Course Narrative: This is an RME: Additional HPI, ROS, PE not included below will be d eferred to primary provider. Patient is a 57-year-old female who presents to the emergency department for evaluation of body aches, onset 2 weeks ago. Reports chest pain and shortness of breath on exertion. Took a COVID-19 test today which was negative. Denies fever, chills, cough, rhinorrhea, nausea, vomiting, ABD pain, recent unintentional weight loss. Was unable to be seen by her PCP, so she came to ED today as symptoms not improving. Denies any known sick contacts. Plan: labs, viral testing, CXR, EKG <Smiley Whitley CNP - Last Filed: 11/18/22 12:43> Medical Decision Making Medical Decision Making [facility] Narrative: . Multiple complaints his poor sleep likely with anxiety and depression basic workup is negative <Main Chau MD - Last Filed: 11/19/22 01:35> Lab Data [facility] Lab Attestation statement: I reviewed the patient's lab results. <Main Chau MD - Last Filed: 11/19/22 01:35> Result Diagrams: 11/18/22 13:04 <Smiley Whitley CNP - Last Filed: 11/18/22 12:43> Labs: Lab Results 11/18/22 11/18/22 11/18/22 Range/Units 13:04 13:04 13:04 WBC (4.8-10.8) X10*3/uL RBC (4.20-5.50) X10*6/uL Hgb (12.0-16.0) g/dl Hct (37.0-47.0) % MCV (80.0-98.0) fL MCH (27.0-33.0) pg MCHC (31.0-35.0) g/dl RDW (11.0-16.0) % Plt Count (160-400) X10*3/uL MPV (9.4-12.3) fL Immature Gran % (Auto) (0.0-0.4) % Neut % (Auto) (45-73) % Lymph % (Auto) (20-40) % [place] % (Auto) (2-11) % Eos % (Auto) (0-4) % Baso % (Auto) (0-2) % Lymph # (Auto) (1.2-4.9) X10*3/uL [place] # (Auto) (0.1-1.2) X10*3/uL Eos # (Auto) (0.0-0.4) X10*3/uL Baso # (Auto) (0.0-0.2) X10*3/uL Abs Immat Gran (auto) (0.00-0.03) X10*3/uL Absolute Neuts (auto) (2.0-8.3) x10*3/uL Absolute Nucleated RBC (0.0-0.012) X10*3/uL Nucleated RBC % (auto) (0.0-0.2) /100WBC PT Cancelled INR Cancelled Sodium 140 (135-145) mmol/L Potassium 3.8 (3.3-5.1) mmol/L Chloride 107 (96-108) mmol/L Carbon Dioxide 24 (22-29) mmol/L Anion Gap 13 (12-20) BUN 17 H (9-16) mg/dL Creatinine 0.67 (0.5-1.4) mg/dL Estim Creat Clear Calc 80.9 Estimated GFR > 60 Random Glucose 97 (60-115) mg/dL Calcium 9.0 (8.4-10.2) mg/dL Total Bilirubin 0.4 (0.0-1.0) mg/dL AST 20 (5-31) U/L ALT 22 (0-31) U/L Alkaline Phosphatase 72 (39-117) U/L Total Creatine Kinase 118 (26-140) U/L Troponin I High Sens (<3.5-17.0) ng/L B-Natriuretic Peptide (<100) pg/mL Total Protein 7.0 (6.5-8.0) g/dL Albumin 4.4 (3.5-5.0) g/dL Lipase 23 (8-78) U/L Urine Color Urine Appearance Urine pH (5.0-9.0) Ur Specific [place] (1.005-1.025) Urine Protein (Neg-Trace) mg/dL Urine Glucose (UA) (Negative) mg/dL Urine Ketones (Negative) mg/dL Urine Blood (Negative) Urine Nitrite (Negative) Ur Leukocyte Esterase (Negative) COVID-19 (MARC) Negative (Negative) COVID-19 Clin Com See Note Influenza Type A (CHRISTIAN) (Negative) Influenza Type B (CHRISTIAN) (Negative) Influenza A & B Note 11/18/22 11/18/22 11/18/22 Range/Units 13:04 13:04 13:04 WBC (4.8-10.8) X10*3/uL RBC (4.20-5.50) X10*6/uL Hgb (12.0-16.0) g/dl Hct (37.0-47.0) % MCV (80.0-98.0) fL MCH (27.0-33.0) pg MCHC (31.0-35.0) g/dl RDW (11.0-16.0) % Plt Count (160-400) X10*3/uL MPV (9.4-12.3) fL Immature Gran % (Auto) (0.0-0.4) % Neut % (Auto) (45-73) % Lymph % (Auto) (20-40) % [place] % (Auto) (2-11) % Eos % (Auto) (0-4) % Baso % (Auto) (0-2) % Lymph # (Auto) (1.2-4.9) X10*3/uL [place] # (Auto) (0.1-1.2) X10*3/uL Eos # (Auto) (0.0-0.4) X10*3/uL Baso # (Auto) (0.0-0.2) X10*3/uL Abs Immat Gran (auto) (0.00-0.03) X10*3/uL Absolute Neuts (auto) (2.0-8.3) x10*3/uL Absolute Nucleated RBC (0.0-0.012) X10*3/uL Nucleated RBC % (auto) (0.0-0.2) /100WBC PT INR Sodium (135-145) mmol/L Potassium (3.3-5.1) mmol/L Chloride (96-108) mmol/L Carbon Dioxide (22-29) mmol/L Anion Gap (12-20) BUN (9-16) mg/dL Creatinine (0.5-1.4) mg/dL Estim Creat Clear Calc Estimated GFR Random Glucose (60-115) mg/dL Calcium (8.4-10.2) mg/dL Total Bilirubin (0.0-1.0) mg/dL AST (5-31) U/L ALT (0-31) U/L Alkaline Phosphatase (39-117) U/L Total Creatine Kinase (26-140) U/L Troponin I High Sens < 3.5 (<3.5-17.0) ng/L B-Natriuretic Peptide 17 (<100) pg/mL Total Protein (6.5-8.0) g/dL Albumin (3.5-5.0) g/dL Lipase (8-78) U/L Urine Color Urine Appearance Urine pH (5.0-9.0) Ur Specific [place] (1.005-1.025) Urine Protein (Neg-Trace) mg/dL Urine Glucose (UA) (Negative) mg/dL Urine Ketones (Negative) mg/dL Urine Blood (Negative) Urine Nitrite (Negative) Ur Leukocyte Esterase (Negative) COVID-19 (MARC) (Negative) COVID-19 Clin Com Influenza Type A (CHRISTIAN) Negative (Negative) Influenza Type B (CHRISTIAN) Negative (Negative) Influenza A & B Note See Note 11/18/22 11/18/22 Range/Units 17:33 17:50 WBC 7.6 (4.8-10.8) X10*3/uL RBC 4.21 (4.20-5.50) X10*6/uL Hgb 12.3 (12.0-16.0) g/dl Hct 36.5 L (37.0-47.0) % MCV 86.7 (80.0-98.0) fL MCH 29.2 (27.0-33.0) pg MCHC 33.7 (31.0-35.0) g/dl RDW 11.9 (11.0-16.0) % Plt Count 212 (160-400) X10*3/uL MPV 9.9 (9.4-12.3) fL Immature Gran % (Auto) 0.3 (0.0-0.4) % Neut % (Auto) 52.9 (45-73) % Lymph % (Auto) 37.6 (20-40) % [place] % (Auto) 8.1 (2-11) % Eos % (Auto) 0.8 (0-4) % Baso % (Auto) 0.3 (0-2) % Lymph # (Auto) 2.8 (1.2-4.9) X10*3/uL [place] # (Auto) 0.6 (0.1-1.2) X10*3/uL Eos # (Auto) 0.1 (0.0-0.4) X10*3/uL Baso # (Auto) 0.0 (0.0-0.2) X10*3/uL Abs Immat Gran (auto) 0.02 (0.00-0.03) X10*3/uL Absolute Neuts (auto) 4.0 (2.0-8.3) x10*3/uL Absolute Nucleated RBC 0.000 (0.0-0.012) X10*3/uL Nucleated RBC % (auto) 0.0 (0.0-0.2) /100WBC PT INR Sodium (135-145) mmol/L Potassium (3.3-5.1) mmol/L Chloride (96-108) mmol/L Carbon Dioxide (22-29) mmol/L Anion Gap (12-20) BUN (9-16) mg/dL Creatinine (0.5-1.4) mg/dL Estim Creat Clear Calc Estimated GFR Random Glucose (60-115) mg/dL Calcium (8.4-10.2) mg/dL Total Bilirubin (0.0-1.0) mg/dL AST (5-31) U/L ALT (0-31) U/L Alkaline Phosphatase (39-117) U/L Total Creatine Kinase (26-140) U/L Troponin I High Sens (<3.5-17.0) ng/L B-Natriuretic Peptide (<100) pg/mL Total Protein (6.5-8.0) g/dL Albumin (3.5-5.0) g/dL Lipase (8-78) U/L Urine Color Yellow Urine Appearance Clear Urine pH 5.5 (5.0-9.0) Ur Specific [place] 1.025 (1.005-1.025) Urine Protein Negative (Neg-Trace) mg/dL Urine Glucose (UA) Negative (Negative) mg/dL Urine Ketones Negative (Negative) mg/dL Urine Blood Negative (Negative) Urine Nitrite Negative (Negative) Ur Leukocyte Esterase Negative (Negative) COVID-19 (MARC) (Negative) COVID-19 Clin Com Influenza Type A (CHRISTIAN) (Negative) Influenza Type B (CHRISTIAN) (Negative) Influenza A & B Note <Smiley Whitley, PHOTOCOPIER TECHNICIAN - Last Filed: 11/18/22 12:43> Lab Results 11/18/22 11/18/22 11/18/22 Range/Units 13:04 13:04 13:04 WBC (4.8-10.8) X10*3/uL RBC (4.20-5.50) X10*6/uL Hgb (12.0-16.0) g/dl Hct (37.0-47.0) % MCV (80.0-98.0) fL MCH (27.0-33.0) pg MCHC (31.0-35.0) g/dl RDW (11.0-16.0) % Plt Count (160-400) X10*3/uL MPV (9.4-12.3) fL Immature Gran % (Auto) (0.0-0.4) % Neut % (Auto) (45-73) % Lymph % (Auto) (20-40) % [place] % (Auto) (2-11) % Eos % (Auto) (0-4) % Baso % (Auto) (0-2) % Lymph # (Auto) (1.2-4.9) X10*3/uL [place] # (Auto) (0.1-1.2) X10*3/uL Eos # (Auto) (0.0-0.4) X10*3/uL Baso # (Auto) (0.0-0.2) X10*3/uL Abs Immat Gran (auto) (0.00-0.03) X10*3/uL Absolute Neuts (auto) (2.0-8.3) x10*3/uL Absolute Nucleated RBC (0.0-0.012) X10*3/uL Nucleated RBC % (auto) (0.0-0.2) /100WBC PT Cancelled INR Cancelled Sodium 140 (135-145) mmol/L Potassium 3.8 (3.3-5.1) mmol/L Chloride 107 (96-108) mmol/L Carbon Dioxide 24 (22-29) mmol/L Anion Gap 13 (12-20) BUN 17 H (9-16) mg/dL Creatinine 0.67 (0.5-1.4) mg/dL Estim Creat Clear Calc 80.9 Estimated GFR > 60 Random Glucose 97 (60-115) mg/dL Calcium 9.0 (8.4-10.2) mg/dL Total Bilirubin 0.4 (0.0-1.0) mg/dL AST 20 (5-31) U/L ALT 22 (0-31) U/L Alkaline Phosphatase 72 (39-117) U/L Total Creatine Kinase 118 (26-140) U/L Troponin I High Sens (<3.5-17.0) ng/L B-Natriuretic Peptide (<100) pg/mL Total Protein 7.0 (6.5-8.0) g/dL Albumin 4.4 (3.5-5.0) g/dL Lipase 23 (8-78) U/L Urine Color Urine Appearance Urine pH (5.0-9.0) Ur Specific [place] (1.005-1.025) Urine Protein (Neg-Trace) mg/dL Urine Glucose (UA) (Negative) mg/dL Urine Ketones (Negative) mg/dL Urine Blood (Negative) Urine Nitrite (Negative) Ur Leukocyte Esterase (Negative) COVID-19 (MARC) Negative (Negative) COVID-19 Clin Com See Note Influenza Type A (CHRISTIAN) (Negative) Influenza Type B (CHRISTIAN) (Negative) Influenza A & B Note 11/18/22 11/18/22 11/18/22 Range/Units 13:04 13:04 13:04 WBC (4.8-10.8) X10*3/uL RBC (4.20-5.50) X10*6/uL Hgb (12.0-16.0) g/dl Hct (37.0-47.0) % MCV (80.0-98.0) fL MCH (27.0-33.0) pg MCHC (31.0-35.0) g/dl RDW (11.0-16.0) % Plt Count (160-400) X10*3/uL MPV (9.4-12.3) fL Immature Gran % (Auto) (0.0-0.4) % Neut % (Auto) (45-73) % Lymph % (Auto) (20-40) % [place] % (Auto) (2-11) % Eos % (Auto) (0-4) % Baso % (Auto) (0-2) % Lymph # (Auto) (1.2-4.9) X10*3/uL [place] # (Auto) (0.1-1.2) X10*3/uL Eos # (Auto) (0.0-0.4) X10*3/uL Baso # (Auto) (0.0-0.2) X10*3/uL Abs Immat Gran (auto) (0.00-0.03) X10*3/uL Absolute Neuts (auto) (2.0-8.3) x10*3/uL Absolute Nucleated RBC (0.0-0.012) X10*3/uL Nucleated RBC % (auto) (0.0-0.2) /100WBC PT INR Sodium (135-145) mmol/L Potassium (3.3-5.1) mmol/L Chloride (96-108) mmol/L Carbon Dioxide (22-29) mmol/L Anion Gap (12-20) BUN (9-16) mg/dL Creatinine (0.5-1.4) mg/dL Estim Creat Clear Calc Estimated GFR Random Glucose (60-115) mg/dL Calcium (8.4-10.2) mg/dL Total Bilirubin (0.0-1.0) mg/dL AST (5-31) U/L ALT (0-31) U/L Alkaline Phosphatase (39-117) U/L Total Creatine Kinase (26-140) U/L Troponin I High Sens < 3.5 (<3.5-17.0) ng/L B-Natriuretic Peptide 17 (<100) pg/mL Total Protein (6.5-8.0) g/dL Albumin (3.5-5.0) g/dL Lipase (8-78) U/L Urine Color Urine Appearance Urine pH (5.0-9.0) Ur Specific [place] (1.005-1.025) Urine Protein (Neg-Trace) mg/dL Urine Glucose (UA) (Negative) mg/dL Urine Ketones (Negative) mg/dL Urine Blood (Negative) Urine Nitrite (Negative) Ur Leukocyte Esterase (Negative) COVID-19 (MARC) (Negative) COVID-19 Clin Com Influenza Type A (CHRISTIAN) Negative (Negative) Influenza Type B (CHRISTIAN) Negative (Negative) Influenza A & B Note See Note 11/18/22 11/18/22 Range/Units 17:33 17:50 WBC 7.6 (4.8-10.8) X10*3/uL RBC 4.21 (4.20-5.50) X10*6/uL Hgb 12.3 (12.0-16.0) g/dl Hct 36.5 L (37.0-47.0) % MCV 86.7 (80.0-98.0) fL MCH 29.2 (27.0-33.0) pg MCHC 33.7 (31.0-35.0) g/dl RDW 11.9 (11.0-16.0) % Plt Count 212 (160-400) X10*3/uL MPV 9.9 (9.4-12.3) fL Immature Gran % (Auto) 0.3 (0.0-0.4) % Neut % (Auto) 52.9 (45-73) % Lymph % (Auto) 37.6 (20-40) % [place] % (Auto) 8.1 (2-11) % Eos % (Auto) 0.8 (0-4) % Baso % (Auto) 0.3 (0-2) % Lymph # (Auto) 2.8 (1.2-4.9) X10*3/uL [place] # (Auto) 0.6 (0.1-1.2) X10*3/uL Eos # (Auto) 0.1 (0.0-0.4) X10*3/uL Baso # (Auto) 0.0 (0.0-0.2) X10*3/uL Abs Immat Gran (auto) 0.02 (0.00-0.03) X10*3/uL Absolute Neuts (auto) 4.0 (2.0-8.3) x10*3/uL Absolute Nucleated RBC 0.000 (0.0-0.012) X10*3/uL Nucleated RBC % (auto) 0.0 (0.0-0.2) /100WBC PT INR Sodium (135-145) mmol/L Potassium (3.3-5.1) mmol/L Chloride (96-108) mmol/L Carbon Dioxide (22-29) mmol/L Anion Gap (12-20) BUN (9-16) mg/dL Creatinine (0.5-1.4) mg/dL Estim Creat Clear Calc Estimated GFR Random Glucose (60-115) mg/dL Calcium (8.4-10.2) mg/dL Total Bilirubin (0.0-1.0) mg/dL AST (5-31) U/L ALT (0-31) U/L Alkaline Phosphatase (39-117) U/L Total Creatine Kinase (26-140) U/L Troponin I High Sens (<3.5-17.0) ng/L B-Natriuretic Peptide (<100) pg/mL Total Protein (6.5-8.0) g/dL Albumin (3.5-5.0) g/dL Lipase (8-78) U/L Urine Color Yellow Urine Appearance Clear Urine pH 5.5 (5.0-9.0) Ur Specific [place] 1.025 (1.005-1.025) Urine Protein Negative (Neg-Trace) mg/dL Urine Glucose (UA) Negative (Negative) mg/dL Urine Ketones Negative (Negative) mg/dL Urine Blood Negative (Negative) Urine Nitrite Negative (Negative) Ur Leukocyte Esterase Negative (Negative) COVID-19 (MARC) (Negative) COVID-19 Clin Com Influenza Type A (CHRISTIAN) (Negative) Influenza Type B (CHRISTIAN) (Negative) Influenza A & B Note <Main Chau MD - Last Filed: 11/19/22 01:35> Independent Interpretation I performed an independent interpretation of an: EKG <Main Chau MD - Last Filed: 11/19/22 01:35> Interpretation: Normal sinus rhythm heart rate 76 beats per minute normal interval normal axis impression normal EKG <Main Chau MD - Last Filed: 11/19/22 01:35> Discharge Plan Discharge Clinical Impression: Musculoskeletal arm pain <Smiley Whitley CNP - Last Filed: 11/18/22 12:43> Patient Disposition: Home, Self-Care <Smiley Whitley CNP - Last Filed: 11/18/22 12:43> Instructions: Musculoskeletal Pain (ED) <Smiley Whitley CNP - Last Filed: 11/18/22 12:43> Additional Instructions: Take ibuprofen for pain Drink plenty of fluids Follow with PCP <Smiley Whitley CNP - Last Filed: 11/18/22 12:43> Prescriptions: New ibuprofen 600 mg tablet 600 mg PO Q6H PRN (Reason: fever or pain) Qty: 30 0RF No Action albuterol sulfate 90 mcg/actuation HFA aerosol inhaler 2 puff inhalation Q6H PRN (Reason: shortness of breath or wheezing) 30 Days Qty: 8.5 1RF fluticasone propionate 50 mcg/actuation spray,suspension 1 spray intranasal DAILY 30 Days Qty: 16 1RF Rx Instructions: administer into each nostril Allergy Relief (cetirizine) 10 mg capsule 10 mg PO DAILY PRN (Reason: allergy symptoms) 30 Days Qty: 30 3RF (DME) comp.stocking,knee,long,medium Misc See Rx Instructions .Route Qty: 2 0RF Rx Instructions: As directed midodrine 5 mg tablet 5 mg PO BID 30 Days Qty: 60 3RF Rx Instructions: do not give last dose of day after 6PM or within 4 hrs of bedtime cyclobenzaprine 10 mg tablet 10 mg PO BID 14 Days Qty: 28 0RF omeprazole 20 mg capsule,delayed release(DR/EC) 20 mg PO DAILY Qty: 30 5RF pantoprazole 20 mg tablet,delayed release (DR/EC) 20 mg PO QAM Qty: 30 6RF <Smiley Whitley CNP - Last Filed: 11/18/22 12:43> Stand Alone Forms: Work/School Release <Smiley Whitley CNP - Last Filed: 11/18/22 12:43> Interventions: ED Discharge Assessment Last Done: 11/18/22 18:25 <Smiley Whitley CNP - Last Filed: 11/18/22 12:43> Discharge Date/Time: 11/18/22 18:26 <Smiley Whitley CNP - Last Filed: 11/18/22 12:43>
[2022-11-18 12:38] VITALS: BP 142/86; PULSE 87; RESP 16; TEMP 36.1; O2SAT 98; BMI 26.4
--- NOTE | 2022-11-18 12:42 | ECG_ITS ---
Test Reason : chest pain Blood Pressure : / mmHG Vent. Rate : 076 BPM Atrial Rate : 076 BPM P-R Int : 196 ms QRS Dur : 090 ms QT Int : 388 ms P-R-T Axes : 052 009 041 degrees QTc Int : 436 ms Normal sinus rhythm Normal ECG When compared with ECG of 05-MAY-2022 14:57, No significant change was found Referred By: Smiley Whitley Electronically Signed By:KARIS MOISE
[2022-11-18 13:27] LABS: COVID-19 Test Negative (Negative); IDNOW Serial# 16C4AD1C
[2022-11-18 13:29] LABS: IDNOW Serial# 9DB6401D; Influenza A Negative (Negative); Influenza B2 Negative (Negative)
[2022-11-18 13:32] LABS: B Type Natriuretic Peptide 17 pg/mL (<100)
[2022-11-18 14:58] LABS: Alanine Aminotransferase 22 U/L (0-31); Albumin Level 4.4 g/dL (3.5-5.0); Alkaline Phosphatase 72 U/L (39-117); Anion Gap 13 (12-20); Aspartate Amino Transferase 20 U/L (5-31); Bilirubin Total 0.4 mg/dL (0.0-1.0); Blood Urea Nitrogen 17 mg/dL (9-16); Carbon Dioxide 24 mmol/L (22-29); Chloride 107 mmol/L (96-108); Creatinine Clr Calc Pharmacy 80.9; Estimated Glomerular Filt Rate > 60; Glucose Random 97 mg/dL (60-115); Lipase 23 U/L (8-78); Potassium 3.8 mmol/L (3.3-5.1); Sodium 140 mmol/L (135-145)
[2022-11-18 15:09] LABS: Troponin-I High Sensitivity < 3.5 ng/L (<3.5-17.0)
[2022-11-18 16:58] VITALS: BP 150/77; PULSE 75; RESP 22; TEMP 37.3; O2SAT 99
[2022-11-18 17:41] LABS: Appearance Urine Clear; Color Urine Yellow; Glucose Urine UA Negative (Negative); Leukocyte Esterase Urine Negative (Negative); Nitrite Urine Negative (Negative); PH 5.5 (5.0-9.0); Specific Gravity - Urine 1.025 (1.005-1.025); Urine Blood Negative (Negative); Urine Ketones Negative (Negative); Urine Protein Negative (Neg-Trace)
--- NOTE | 2022-11-18 17:52 | MHC.EDTECH ---
pt cbc drawn and sent to lab .
[2022-11-18 17:53] VITALS: BP 134/77; PULSE 59; RESP 16; TEMP 36.6; O2SAT 97
--- NOTE | 2022-11-18 17:53 | MHC.EDTECH ---
vitals sign taken ,pt watching television .
[2022-11-18 17:54] LABS: MANUAL DIFF FLAG NO
[2022-11-18 17:58] LABS: Basophils Percent Auto 0.3 % (0-2); Eosinophils Absolute Auto 0.1 X10*3/uL (0.0-0.4); Eosinophils Percent Auto 0.8 % (0-4); Hematocrit 36.5 % (37.0-47.0); Hemoglobin 12.3 g/dl (12.0-16.0); Imm Gran Abs Auto 0.02 X10*3/uL (0.00-0.03); Imm Gran Pct Auto 0.3 % (0.0-0.4); Lymphocytes Absolute Auto 2.8 X10*3/uL (1.2-4.9); Lymphocytes Percent Auto 37.6 % (20-40); Mean Corpuscular HGB Conc 33.7 g/dl (31.0-35.0); Mean Corpuscular Hemoglobin 29.2 pg (27.0-33.0); Mean Corpuscular Volume 86.7 fL (80.0-98.0); Mean Platelet Volume 9.9 fL (9.4-12.3); Monocytes Absolute Auto 0.6 X10*3/uL (0.1-1.2); Monocytes Percent Auto 8.1 % (2-11); Neutrophils Percent Auto 52.9 % (45-73); Platelet Count 212 X10*3/uL (160-400); Red Blood Count 4.21 X10*6/uL (4.20-5.50); Red Cell Distribution Width 11.9 % (11.0-16.0); White Blood Count 7.6 X10*3/uL (4.8-10.8)
== END 2022-11-18 18:26 | disposition home or self-care (01) ==
PROVIDERS: Nurse Practitioner Family; Emergency Provider Internal Medicine; PCP Physician Assistant
DX: R07.89 Other chest pain (principal); M79.10 Myalgia, unspecified site; Z79.899 Other long term (current) drug therapy; Z20.822 Contact with and (suspected) exposure to COVID-19; Z20.828 Contact with and (suspected) exposure to other viral communicable diseases
CPT/HCPCS: 71046; 80053; 81003; 82550; 83690; 83880; 84484; 85025; 87502; 87635; 93005; 99283; 99285

== ENCOUNTER 2023-02-21 07:23 | Emergency (ER) | payer SELFPAY ==
--- NOTE | ~2023-02-21 | XR_ITS ---
EXAMINATION: XR KNEE, RIGHT CLINICAL INFORMATION: Fall, trauma, pain COMPARISON: Right knee radiographs 07/24/2020 TECHNIQUE: AP and lateral views of the right knee. FINDINGS: There is moderate suprapatellar effusion. Hoffa's fat pad appears normal. There is normal bony mineralization. No visible fracture or dislocation. No joint narrowing, erosive change, or chondrocalcinosis. XR/XR knee RT 2V IMPRESSION: Moderate suprapatellar effusion. No visible fracture or dislocation.
[2023-02-21 07:30] VITALS: BP 128/82; PULSE 99; RESP 19; TEMP 36.6; O2SAT 99; BMI 26.4
--- NOTE | 2023-02-21 07:38 | ED_ITS ---
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 Patient states that 2 weeks ago she fell and landed on her right knee and now having pain that radiates from the right knee up to the right hip. Patient denies any dizziness, lightheadedness, abdominal pain, nausea, vomiting, fever, chills, blurry vision, double vision, loss of vision, chest pain, difficulty breathing, shortness of breath, back pain, night sweats, pain with ur ination, increased urinary frequency, increased urinary urgency, blood in her urine or stool, syncope or a near syncopal episode, bowel incontinence, bladder incontinence, bowel retention, bladder retention, or any other complaints at this time. Onset (ago): week(s) (2) Location: right and lower extremity Severity: mild Severity scale (1-10): 3 Relieving factors: none Exacerbating factors: none Associated symptoms: denies other symptoms Treatments prior to arrival: none Related Data Previous Rx's Medication Instructions Recorded albuterol sulfate 90 mcg/actuation 2 puff inhalation Q6H PRN 02/04/21 aerosol inhaler shortness of breath or wheezing 30 days #8.5 grams fluticasone propionate 50 1 spray intranasal DAILY 30 days 02/05/21 mcg/actuation nasal #16 grams spray,suspension cetirizine 10 mg capsule (Allergy 10 mg PO DAILY PRN allergy 02/15/22 Relief (cetirizine)) symptoms 30 days #30 caps comp.stocking,knee,long,medium #2 ea 05/11/22 midodrine 5 mg tablet 5 mg PO BID 30 days #60 tabs 11/16/22 cyclobenzaprine 10 mg tablet 10 mg PO BID muscle spasm 14 days 11/17/22 #28 tabs ibuprofen 600 mg tablet 600 mg PO Q6H PRN fever or pain 11/18/22 #30 tabs pantoprazole 20 mg tablet,delayed 20 mg PO QAM #30 tabs 12/03/22 release gabapentin 100 mg capsule 100 mg PO BID 30 days #60 caps 12/29/22 olopatadine 0.2 % eye drops 1 drp ophthalmic (eye) DAILY 30 01/04/23 (Pataday Once Daily Relief) days #2.5 mL prednisone 20 mg tablet 20 mg PO DAILY 7 days #7 tabs 02/21/23 Allergies Allergy/AdvReac Type Severity Reaction Status Date / Time oxycodone [From PERCOCET] Allergy Intermediate VOMITING/DI Verified 02/21/23 07:30 ZZINESS tramadol [TRAMADOL] Allergy Intermediate DIZZINESS Verified 02/21/23 07:30 acetaminophen [Percocet] Allergy Unknown vomitting/d [facility] Constitutional: Constitutional: Reports no additional constitutional complaints, Denies chills, Denies fever(s) and Denies night sweats Eyes: Eyes: Reports no additional eye complaints, Denies blurry vision, Denies change in vision, Denies diplopia, Denies eye discharge, Denies loss of vision and Denies eye pain ENT: Denies dizziness Cardiovascular: Cardiovascular: Reports no additional cardiovascular complaints, Denies chest pain, Denies lightheadedness, Denies Loss of Consciousness and Denies dyspnea Respiratory: Respiratory: Reports no additional respiratory complaints and Denies dyspnea Gastrointestinal: Gastrointestinal: Reports no additional gastrointestinal complaints, Denies abdominal pain, Denies melena, Denies hematochezia, Denies change in bowel habits and Denies change in stool character Genitourinary: Genitourinary: Denies hematuria, Denies urinary frequency, Denies dysuria, Denies urinary incontinence, Denies urinary hesitancy and Denies urinary urgency Musculoskeletal: Musculoskeletal: Reports no additional musculoskeletal complaints, Denies numbness and Denies tingling Comments: right knee pain Neurologic: Denies dizziness, Denies loss of vision, Denies numbness and Denies tingling Psychiatric: Psychiatric: Reports no additional psychiatric complaints Endocrine: Endocrine: Reports no additional endocrine complaints Hematologic/Lymphatic: Hematologic/Lymphatic: Reports no additional hematologic/lymphatic complaints Allergic/Immunologic: Allergic/Immunologic: Reports no additional allergic/immunologic complaints [facility] Past Medical History Attestation statement: The following information was validated with the patient. Source: old records reviewed and nursing notes reviewed Medical History Abdominal pain Acid reflux NAFLD (nonalcoholic fatty liver disease) Surgical History H/O colonoscopy History of breast biopsy History of carpal tunnel surgery of left wrist History of carpal tunnel surgery of right wrist History of hysterectomy History of thumb surgery History of toe surgery Family History Family History Father COPD (chronic obstructive pulmonary disease) Smoker Maternal Aunt Hypertension Sister Breast cancer Mother Hypertension Social History Social History Household Members: Children Housing: Apartment Alcohol intake: never Patient Tobacco Use Status: Never used Tobacco e-Cigarette/Vaping Use: Never Used Second Hand Smoke Exposure: Yes Advance Directives: No Advance Directives Information Provided: Yes service: No Current occupational status: unemployed 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 Cognitive needs: No Hearing needs: No Vision needs: Yes Physical Exam ED Vital Signs: Vital Signs - 24 hr 02/21/23 07:30 02/21/23 07:39 Temperature 98 F 98.1 F Pulse Rate 99 79 Respiratory Rate 19 12 Blood Pressure 128/82 120/77 Pulse Oximetry 99 96 Oxygen Delivery Method Room Air Room Air BMI result Body Mass Index 26.4 Const General: cooperative, no acute distress, alert and awake Nutritional Appearance: well nourished Orientation/consciousness: patient oriented x3 Limitations: no limitations HENMT Head: Yes normal to inspection and Yes atraumatic Ears: hearing grossly normal bilaterally and external ears normal General nose exam: Normal external nose present, no nasal discharge noted and no epistaxis Face and sinus: Yes normal facial exam, No abrasion and No laceration Mouth: Normal oral and palatal mucosa present, no drooling and no muffled voice Eyes General: appearance normal, both eyes and all related structures Periorbital: periorbital findings normal Eyelids: Yes eyelids normal Conjunctivae: conjunctivae normal Pupils: Equal, round and reactive pupils present EOM: EOMs intact bilaterally Neck Neck: Yes normal visual inspection, Yes full ROM and Yes no lymphadenopathy Chest Chest palpation & inspection: normal inspection of the chest Resp Effort & Inspection: normal respiratory effort and able to speak in complete sentences Auscultation: clear to auscultation bilaterally Cardio Rhythm: regular rhythm GI Inspection: Yes normal to inspection Neuro General: patient oriented x3 and moves all extremities Cranial nerves: Yes Equal, round and reactive pupils present Cognition (Neuro): normal cognition Motor exam (neuro): 5/5 motor strength present throughout Sensory Exam: Normal double simultaneous stimulation for sensation Coordination: [id number] test normal Extrem General: Yes normal to inspection, Yes full ROM and Yes capillary refill normal Psych Appearance: grossly normal Mental Status: mental status grossly normal Affect: normal affect Attitude: cooperative Thought process: Normal thought process present Thought content: Normal thought content present Insight: Good insight present (Psych) Medical Decision Making Medical Decision Making MDM Narrative: Patient is a 57 year old assigned female at with a history of fibromyalgia and asthma presenting to the emergency department today with right knee pain. Patient's physical exam was unremarkable. Patient's right knee x-ray showed no acute process. I explained my physical exam findings as well as all test results to the patient. I answered all questions asked by the patient. I stressed the importance of the patient taking her medication as prescribed. I stressed the importance of the patient following up with her primary care provider and an orthopedic provider. I stressed the importance of the patient returning to the emergency department immediately if her symptoms were to worsen or if she were to develop any dizziness, shortness of breath, difficulty breathing, chest pain, blurry vision, loss of vision, nausea, vomiting, abdominal pain, fever, chills, back pain, or any other complaints. Patient verbalized agreement and understanding with this treatment plan and discharge. Differential Diagnosis Differential Diagnoses: The differential diagnosis associated with the presentation includes right knee pain, right knee injury Admission/Observation Consideration of admission/observation: Escalation of care including admission/observation considered Patient would have been admitted to the hospital had her work up had any findings where hospital admission was appropriate. Independent Interpretation I performed an independent interpretation of an: Plain X-Ray Interpretation: My interpretation is in agreement with the radiologist's impression of this imaging study. EXAMINATION: XR KNEE, RIGHT? CLINICAL INFORMATION: Fall, trauma, pain ? COMPARISON: Right knee radiographs 07/24/2020? TECHNIQUE: AP and lateral views of the right knee. FINDINGS: There is moderate suprapatellar effusion. Hoffa's fat pad appears normal. There is normal bony mineralization. No visible fracture or dislocation. No joint narrowing, erosive change, or chondrocalcinosis. XR/XR knee RT 2V IMPRESSION: Moderate suprapatellar effusion. No visible fracture or dislocation. Dictated By: Kenneth Meier MD Signed By: Electronically signed by Kenneth Meier MD 02/21/23 0841 Chronic Conditions Patient?s care impacted by: Other (fibromyalgia and asthma) Discharge Plan Discharge Clinical Impression: Acute knee pain Patient Disposition: Home, Self-Care Instructions: Knee Pain (ED) Additional Instructions: Follow up with your primary care provider and an orthopedic provider. Return to the emergency department immediately if your symptoms worsen or if you develop any dizziness, shortness of breath, difficulty breathing, chest pain, blurry vision, loss of vision, nausea, vomiting, abdominal pain, fever, chills, back pain, or any other complaints. Codey un seguimiento con kay proveedor de atenci?n primaria y un proveedor ortop?dico. Regrese al departamento de emergencias de inmediato si tasneem s?ntomas empeoran o si presenta mareos, falta de aire, dificultad para respirar, dolor de pecho, visi?n borrosa, p?rdida de la visi?n, n?useas, v?mitos, dolor abdominal, fiebre, escalofr?os, dolor de espalda o cualquier otras quejas. Prescriptions: New prednisone 20 mg tablet 20 mg PO DAILY 7 Days Qty: 7 0RF No Action albuterol sulfate 90 mcg/actuation HFA aerosol inhaler 2 puff inhalation Q6H PRN (Reason: shortness of breath or wheezing) 30 Days Qty: 8.5 1RF fluticasone propionate 50 mcg/actuation spray,suspension 1 spray intranasal DAILY 30 Days Qty: 16 1RF Rx Instructions: administer into each nostril Allergy Relief (cetirizine) 10 mg capsule 10 mg PO DAILY PRN (Reason: allergy symptoms) 30 Days Qty: 30 3RF (DME) comp.stocking,knee,long,medium Misc See Rx Instructions .Route Qty: 2 0RF Rx Instructions: As directed midodrine 5 mg tablet 5 mg PO BID 30 Days Qty: 60 3RF Rx Instructions: do not give last dose of day after 6PM or within 4 hrs of bedtime cyclobenzaprine 10 mg tablet 10 mg PO BID 14 Days Qty: 28 0RF pantoprazole 20 mg tablet,delayed release (DR/EC) 20 mg PO QAM Qty: 30 6RF gabapentin 100 mg capsule 100 mg PO BID 30 Days Qty: 60 1RF Rx Instructions: Alternative to duloxetine olopatadine [Pataday Once Daily Relief] 0.2 % drops 1 drp ophthalmic (eye) DAILY 30 Days Qty: 2.5 2RF ibuprofen 600 mg tablet 600 mg PO Q6H PRN (Reason: fever or pain) Qty: 30 0RF Referrals: [facility] [Provider Group] (Call to establish and follow up with an orthopedic provider. Llame para establecer y hacer un seguimiento con un proveedor ortop?dico.) Fahad Bee PA-C [Primary Care Provider] - Print Language: Italian
[2023-02-21 07:39] VITALS: BP 120/77; PULSE 79; RESP 12; TEMP 36.7; O2SAT 96
--- NOTE | 2023-02-21 07:56 | PC.NURSE ---
pt received in bed. complains of 2 days in pain to right thigh. fell about 1 month ago, states no medical intervention, did not see MD. Pain starts at knee, goes up into thigh. Seen by Lizabeth KITCHEN via drop pit worker. Plan is to Xray knee, medicate for pain and swelling. Patient aware of and agrees to plan. Will continue to monitor.
== END 2023-02-21 09:56 | disposition home or self-care (01) ==
PROVIDERS: Emergency Provider Emergency Medicine; PCP Physician Assistant
DX: M25.561 Pain in right knee (principal); M79.7 Fibromyalgia; J45.909 Unspecified asthma, uncomplicated
CPT/HCPCS: 73560; 99283

== ENCOUNTER 2023-02-27 05:57 | Emergency (ER) | payer OTHER, SELFPAY ==
--- NOTE | ~2023-02-27 | US_ITS ---
EXAMINATION: US ABDOMEN LIMITED CLINICAL INFORMATION: Right upper quadrant pain, nausea.. COMPARISON: Ultrasound 07/06/2021 and 10/15/2020 TECHNIQUE: Real-time imaging of the right upper quadrant abdominal viscera. FINDINGS: PANCREAS: The pancreas is homogeneous echotexture without focal lesion or enlargement. LIVER: There is a hyperechoic lesion in the right hepatic lobe measuring 2.4 x 1.1 x 1.3 cm most likely hemangioma. It was seen previously on 07/08/2021. Previously seen cyst in the right lobe of liver is not visualized at this time.. The liver is normal in size. The liver contour is normal. Parenchymal echogenicity is slightly increased. There is no intrahepatic biliary duct dilatation seen. GALLBLADDER: Normal. The gallbladder is physiologically distended without evidence of stones, sludge, polyps, wall thickening or pericholecystic fluid. COMMON BILE DUCT: Normal in caliber measuring 0.3 cm in diameter. RIGHT KIDNEY: Normal. No hydronephrosis. No renal calculi or focal parenchymal lesions. The kidney measures 10.5 cm in maximum dimension. FREE FLUID: None. US/US abdomen limited IMPRESSION: Stable right lower lobe hemangioma measuring 2.4 cm. Previously visualized cyst in the right hepatic lobe is not visualized likely due to its small size. There is increased liver echogenicity. Visualized gallbladder, pancreas, CBD and right kidney are unremarkable.
[2023-02-27 05:58] VITALS: BP 133/78; PULSE 108; RESP 18; TEMP 36; O2SAT 100; BMI 27.5
--- NOTE | 2023-02-27 07:29 | ED.ABDPAIN ---
HPI - Abdominal Pain General Chief Complaint: Skin/Abscess/Foreign Body Stated Complaint: stomach pain? 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 She also states she has had a painful, burning rash to her right lower extremity for the last 1 week. She was seen here for right knee pain and the rash couple of days ago, told it was a bug bite. She was discharged with prednisone. Patient states few days after taking the prednisone she started developing right upper quadrant pain and nausea. She states the pain is constant and very strong. It is not worse after eating. No diarrhea or vomiting. No fevers. No history of gallstones. Patient states the rash is now burning in nature. She has multiple red spots on her leg in various locations with various morphology. MD elicited complaint: abdominal pain and other (Right lower extremity rash) Pertinent past history: none Onset (ago): day(s) (2) Pain Consistency: constant Location: RUQ Severity: severe Quality: stabbing and aching Radiation: none Migration to: no migration Exacerbating factors: nothing Relieving factors: nothing Context: other (New prednisone prescription) Associated symptoms: nausea Related Data Previous Rx's Medication Instructions Recorded albuterol sulfate 90 mcg/actuation 2 puff inhalation Q6H PRN 02/04/21 aerosol inhaler shortness of breath or wheezing 30 days #8.5 grams fluticasone propionate 50 1 spray intranasal DAILY 30 days 02/05/21 mcg/actuation nasal #16 grams spray,suspension cetirizine 10 mg capsule (Allergy 10 mg PO DAILY PRN allergy 02/15/22 Relief (cetirizine)) symptoms 30 days #30 caps comp.stocking,knee,long,medium #2 ea 05/11/22 midodrine 5 mg tablet 5 mg PO BID 30 days #60 tabs 11/16/22 cyclobenzaprine 10 mg tablet 10 mg PO BID muscle spasm 14 days 11/17/22 #28 tabs ibuprofen 600 mg tablet 600 mg PO Q6H PRN fever or pain 11/18/22 #30 tabs pantoprazole 20 mg tablet,delayed 20 mg PO QAM #30 tabs 12/03/22 release gabapentin 100 mg capsule 100 mg PO BID 30 days #60 caps 12/29/22 olopatadine 0.2 % eye drops 1 drp ophthalmic (eye) DAILY 30 01/04/23 (Pataday Once Daily Relief) days #2.5 mL prednisone 20 mg tablet 20 mg PO DAILY 7 days #7 tabs 02/21/23 pantoprazole 40 mg tablet,delayed 40 mg PO DAILY #14 tabs 02/27/23 release (Protonix) valacyclovir 1 gram tablet 1,000 mg PO Q8H 7 days #21 tabs 02/27/23 Allergies Allergy/AdvReac Type Severity Reaction Status Date / Time oxycodone [From PERCOCET] Allergy Intermediate VOMITING/DI Verified 02/21/23 07:30 ZZINESS tramadol [TRAMADOL] Allergy Intermediate DIZZINESS Verified 02/21/23 07:30 acetaminophen [Percocet] Allergy Unknown vomitting/d Verified 02/21/23 07:30 izziness Review of Systems Review of Systems Yes all other systems are reviewed and are negative [facility] Past Medical History Medical History Abdominal pain Acid reflux NAFLD (nonalcoholic fatty liver disease) Surgical History H/O colonoscopy History of breast biopsy History of carpal tunnel surgery of left wrist History of carpal tunnel surgery of right wrist History of hysterectomy History of thumb surgery History of toe surgery Family History Family History Father COPD (chronic obstructive pulmonary disease) Smoker Maternal Aunt Hypertension Sister Breast cancer Mother Hypertension Social History Social History Household Members: Children Housing: Apartment Alcohol intake: never Patient Tobacco Use Status: Never used Tobacco Smoked in Last 30 Days: No e-Cigarette/Vaping Use: Never Used Second Hand Smoke Exposure: Yes Use of substances other than those prescribed or required for medical reasons: No Advance Directives: No Advance Directives Information Provided: Yes service: No Current occupational status: unemployed 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 Oriented X3. No acute distress. Head: normocephalic, atraumatic. Eyes: Pupils equal, round and reactive to light. ENT: Pharynx normal. No tonsillar swelling or exudate. Neck: Normal inspection. Neck supple. CVS: Normal heart rate and rhythm. Pulses normal. Respiratory: No respiratory distress. Breath sounds normal. Abdomen: Soft with right upper quadrant tenderness and guarding. No rebound. Normal active +BS x4 Skin: Skin warm and dry. Normal skin color. Normal skin turgor. Right lower extremity 2 small areas of flat, erythematous, slightly tender rash on the upper outer thigh, upper inner thigh and just below the knee. There is an area on the anterior lower thigh with vesicular type rash with pustules. Tender. Extremities: No lower extremity edema. No joint swelling. Neuro/psych: Oriented X 3. No motor deficit. No sensory deficit. CN II-XII intact. Normal speech and cognition. Medical Decision Making Medical Decision Making [facility] Narrative: 57-year-old female with history of fibromyalgia, migraines, asthma presents the ER for evaluation of right upper quadrant pain for the last 2 days and nausea along with a worsening right lower extremity rash for the last 1 week. Exam involves multiple dermatomes on the right lower extremity making shingles less likely, however could have multiple ganglion involvement. giving the burning nature of the rash will treat empirically for HSV. case d/w Dr. Hudson. On examination she also has right upper quadrant tenderness with guarding. Given her new steroid prescription she most likely has gastritis, possible peptic ulcer. LFTs, lipase and RUQ U/S were unremarkable. Will plan to stop prednisone and start on PPI, make dietary modifications. stable for d/c home. Differential Diagnosis Differential Diagnoses: The differential diagnosis associated with the presentation includes Shingles, vasculitis, hives, insect bite, dermatitis Gastritis, GERD, peptic ulcer disease, biliary colic, cholecystitis, CBD stone Lab Data [facility] Lab Attestation statement: I reviewed the patient's lab results. Normal CBC, normal LFTs and lipase. 02/27/23 07:41 02/27/23 07:41 Labs: Lab Results 02/27/23 02/27/23 02/27/23 Range/Units 07:41 07:41 07:41 WBC 8.2 (4.8-10.8) X10*3/uL RBC 4.43 (4.20-5.50) X10*6/uL Hgb 13.2 (12.0-16.0) g/dl Hct 38.8 (37.0-47.0) % MCV 87.6 (80.0-98.0) fL MCH 29.8 (27.0-33.0) pg MCHC 34.0 (31.0-35.0) g/dl RDW 12.1 (11.0-16.0) % Plt Count 211 (160-400) X10*3/uL MPV 9.8 (9.4-12.3) fL Immature Gran % (Auto) 0.4 (0.0-0.4) % Neut % (Auto) 51.7 (45-73) % Lymph % (Auto) 38.6 (20-40) % [place] % (Auto) 8.1 (2-11) % Eos % (Auto) 1.0 (0-4) % Baso % (Auto) 0.2 (0-2) % Lymph # (Auto) 3.2 (1.2-4.9) X10*3/uL [place] # (Auto) 0.7 (0.1-1.2) X10*3/uL Eos # (Auto) 0.1 (0.0-0.4) X10*3/uL Baso # (Auto) 0.0 (0.0-0.2) X10*3/uL Abs Immat Gran (auto) 0.03 (0.00-0.03) X10*3/uL Absolute Neuts (auto) 4.3 (2.0-8.3) x10*3/uL Absolute Nucleated RBC 0.000 (0.0-0.012) X10*3/uL Nucleated RBC % (auto) 0.0 (0.0-0.2) /100WBC Sodium 140 (135-145) mmol/L Potassium 3.3 (3.3-5.1) mmol/L Chloride 105 (96-108) mmol/L Carbon Dioxide 28 (22-29) mmol/L Anion Gap 10 L (12-20) BUN 17 H (9-16) mg/dL Creatinine 0.69 (0.5-1.4) mg/dL Estim Creat Clear Calc 89.9 Estimated GFR > 60 Random Glucose 98 (60-115) mg/dL Calcium 9.2 (8.4-10.2) mg/dL Magnesium 2.1 (1.6-2.6) mg/dL Total Bilirubin 0.6 (0.0-1.0) mg/dL Direct Bilirubin 0.2 (0.0-0.5) mg/dL AST 16 (5-31) U/L ALT 20 (0-31) U/L Alkaline Phosphatase 65 (39-117) U/L Total Protein 7.2 (6.5-8.0) g/dL Albumin 4.2 (3.5-5.0) g/dL Lipase 17 (8-78) U/L Urine Color Yellow Urine Appearance Clear Urine pH 6.5 (5.0-9.0) Ur Specific [place] 1.020 (1.005-1.025) Urine Protein Negative (Neg-Trace) mg/dL Urine Glucose (UA) Negative (Negative) mg/dL Urine Ketones Negative (Negative) mg/dL Urine Blood Negative (Negative) Urine Nitrite Negative (Negative) Ur Leukocyte Esterase Trace H (Negative) Independent Interpretation I performed an independent interpretation of an: Ultrasound Interpretation: US reviewed - no appreciated gallstones of ductal dilatation, agree w/ radiology read Radiology Impression Discussion of test interpretation with radiology: I have reviewed the radiologist's reading. Radiologist Impression: ?US/US abdomen limited IMPRESSION: Stable right lower lobe hemangioma measuring 2.4 cm. Previously visualized cyst in the right hepatic lobe is not visualized likely due to its small size. There is increased liver echogenicity. ? Visualized gallbladder, pancreas, CBD and right kidney are unremarkable. External Record Review External record reviewed: Outpatient record, Prior outpatient labs and Prior outpatient radiology Prescription Management I considered prescription management with: Pain Medication and Antiviral Critical Care Time Critical Care Time Critical Care Time: No Discharge Plan Discharge Clinical Impression: Herpes zoster, Gastritis Patient Disposition: Home, Self-Care Instructions: Gastritis (DC), Shingles (ED) Additional Instructions: Your lab workup and ultrasound today was unremarkable. Your pain is most likely due to gastritis which is and irritation and inflammation of your stomach lining. STOP taking the previously prescribed prednisone. Start taking the prescribed medication as directed for this. Stick to a bland diet. Avoid foods high in acid, avoid alcohol and NSAID medications like Aleve, Motrin, Advil or ibuprofen. Follow up with your doctor as needed. Your leg rash is concerning for possible shingles, take the prescribed antiviral medication for this. complete the entire course. If you develop new or worsening symptoms call 911 or come back to the ER for further evaluation. Paiz examen de laboratorio y ultrasonido de hoy no tuvo nada especial. Lo m?s probable es que paiz dolor se deba a gastritis, que es irritaci?n e inflamaci?n del revestimiento del est?vitaly. DEJE de darcy la prednisona prescrita anteriormente. Comience a darcy la medicaci?n prescrita seg?n las indicaciones para ello. Seguir blas dieta blanda. Evite los alimentos con alto contenido de ?cido, evite el alcohol y los medicamentos BRANDIN sherman Aleve, Motrin, Advil o ibuprofeno. Codey un seguimiento con paiz m?dico seg?n sea necesario. Paiz erupci?n en la pierna es preocupante por posible culebrilla, tome el medicamento antiviral recetado para esto. completar todo el curso. Si desarrolla s?ntomas nuevos o que empeoran, llame al 911 o regrese a la chad de emergencias para blas evaluaci?n adicional. Prescriptions: New valacyclovir 1 gram tablet 1,000 mg PO Q8H 7 Days Qty: 21 0RF pantoprazole [Protonix] 40 mg tablet,delayed release (DR/EC) 40 mg PO DAILY Qty: 14 0RF No Action albuterol sulfate 90 mcg/actuation HFA aerosol inhaler 2 puff inhalation Q6H PRN (Reason: shortness of breath or wheezing) 30 Days Qty: 8.5 1RF fluticasone propionate 50 mcg/actuation spray,suspension 1 spray intranasal DAILY 30 Days Qty: 16 1RF Rx Instructions: administer into each nostril Allergy Relief (cetirizine) 10 mg capsule 10 mg PO DAILY PRN (Reason: allergy symptoms) 30 Days Qty: 30 3RF (DME) comp.stocking,knee,long,medium Misc See Rx Instructions .Route Qty: 2 0RF Rx Instructions: As directed midodrine 5 mg tablet 5 mg PO BID 30 Days Qty: 60 3RF Rx Instructions: do not give last dose of day after 6PM or within 4 hrs of bedtime cyclobenzaprine 10 mg tablet 10 mg PO BID 14 Days Qty: 28 0RF pantoprazole 20 mg tablet,delayed release (DR/EC) 20 mg PO QAM Qty: 30 6RF gabapentin 100 mg capsule 100 mg PO BID 30 Days Qty: 60 1RF Rx Instructions: Alternative to duloxetine olopatadine [Pataday Once Daily Relief] 0.2 % drops 1 drp ophthalmic (eye) DAILY 30 Days Qty: 2.5 2RF ibuprofen 600 mg tablet 600 mg PO Q6H PRN (Reason: fever or pain) Qty: 30 0RF prednisone 20 mg tablet 20 mg PO DAILY 7 Days Qty: 7 0RF Referrals: Fahad Bee PA-C [Primary Care Provider] - Print Language: Somali
[2023-02-27 07:35] VITALS: BP 127/80; PULSE 56; RESP 16; TEMP 36.8; O2SAT 100
[2023-02-27 07:47] LABS: MANUAL DIFF FLAG NO
[2023-02-27 07:49] LABS: Appearance Urine Clear; Color Urine Yellow; Glucose Urine UA Negative (Negative); Leukocyte Esterase Urine Trace (Negative); Nitrite Urine Negative (Negative); PH 6.5 (5.0-9.0); UMIC TRIGGER UACC YES; Urine Blood Negative (Negative); Urine Ketones Negative (Negative); Urine Protein Negative (Neg-Trace)
[2023-02-27 07:57] LABS: Basophils Percent Auto 0.2 % (0-2); Eosinophils Absolute Auto 0.1 X10*3/uL (0.0-0.4); Hematocrit 38.8 % (37.0-47.0); Hemoglobin 13.2 g/dl (12.0-16.0); Imm Gran Abs Auto 0.03 X10*3/uL (0.00-0.03); Imm Gran Pct Auto 0.4 % (0.0-0.4); Lymphocytes Absolute Auto 3.2 X10*3/uL (1.2-4.9); Lymphocytes Percent Auto 38.6 % (20-40); Mean Corpuscular Hemoglobin 29.8 pg (27.0-33.0); Mean Corpuscular Volume 87.6 fL (80.0-98.0); Mean Platelet Volume 9.8 fL (9.4-12.3); Monocytes Absolute Auto 0.7 X10*3/uL (0.1-1.2); Monocytes Percent Auto 8.1 % (2-11); Neutrophils Absolute Auto 4.3 x10*3/uL (2.0-8.3); Neutrophils Percent Auto 51.7 % (45-73); Platelet Count 211 X10*3/uL (160-400); Red Blood Count 4.43 X10*6/uL (4.20-5.50); Red Cell Distribution Width 12.1 % (11.0-16.0); White Blood Count 8.2 X10*3/uL (4.8-10.8)
[2023-02-27 08:08] LABS: Alanine Aminotransferase 20 U/L (0-31); Albumin Level 4.2 g/dL (3.5-5.0); Alkaline Phosphatase 65 U/L (39-117); Anion Gap 10 (12-20); Aspartate Amino Transferase 16 U/L (5-31); Bilirubin Direct 0.2 mg/dL (0.0-0.5); Bilirubin Total 0.6 mg/dL (0.0-1.0); Blood Urea Nitrogen 17 mg/dL (9-16); Calcium 9.2 mg/dL (8.4-10.2); Carbon Dioxide 28 mmol/L (22-29); Chloride 105 mmol/L (96-108); Creatinine Clr Calc Pharmacy 89.9; Estimated Glomerular Filt Rate > 60; Glucose Random 98 mg/dL (60-115); Lipase 17 U/L (8-78); Magnesium 2.1 mg/dL (1.6-2.6); Potassium 3.3 mmol/L (3.3-5.1); Sodium 140 mmol/L (135-145); Total Protein 7.2 g/dL (6.5-8.0)
[2023-02-27 08:49] VITALS: BP 128/77; PULSE 60; RESP 18; O2SAT 99
--- NOTE | 2023-02-27 08:53 | PC.NURSE ---
pt alert and oriented, skin appropriate for ethnicity, pt reports hived on her right lower extremities, three different areas involved on the leg, one appears to be older and dried up one singular red area on the upper hip area, it christie and hurts x1 week and also is having upper right abd pain with nausea, pain at 10/10 both in the abd and leg
[2023-02-27 10:38] LABS: Bacteria Urine None Seen (None Seen); Hyaline Casts Urine 0-2 /LPF (0-2); Squamous Epithelial Cell Urine 0-2 /HPF (0-2); WBC Urine 0-5 /HPF (0-5)
== END 2023-02-27 09:37 | disposition home or self-care (01) ==
PROVIDERS: Physician Assistant; Emergency Provider Student in an Organized Health Care Education/Training Program; PCP Physician Assistant
DX: B02.9 Zoster without complications (principal); K29.70 Gastritis, unspecified, without bleeding; R10.11 Right upper quadrant pain; Z79.899 Other long term (current) drug therapy
CPT/HCPCS: 36415; 76705; 80048; 80076; 81001; 83690; 83735; 85025; 99284

== ENCOUNTER → 2023-04-04 13:32 | Outpatient (BNVA) | payer OTHER, SELFPAY | PROVIDERS: PCP Physician Assistant; Visit Provider Physician Assistant ==

== ENCOUNTER 2023-05-11 14:20 | Outpatient (AMB) | payer OTHER, SELFPAY ==
--- NOTE | 2023-05-11 14:29 | MHC.OFFVIS ---
Intake Vital Signs 05/11/23 14:38 Height 5 ft 4 in Weight 139 lb BMI 23.9 BP 139/70 Blood Pressure Location Lt brachial Position Sitting Pulse 67 Intake Visit Reasons: follow up Intake Note: Patient follow up for aci reflex. Patient went to the ER in he weekend due vomiting and diarrhea. Patient wanted to change GERD medication Manifest Clerk Required: Yes Manifest Clerk Name: Flo [id number] Accompanied by: Self / Same As Patient Allergies oxycodone [From PERCOCET] Allergy (Intermediate, Verified 02/21/23 07:30) VOMITING/DIZZINESS tramadol [TRAMADOL] Allergy (Intermediate, Verified 02/21/23 07:30) DIZZINESS acetaminophen [Percocet] Allergy (Unknown, Verified 02/21/23 07:30) vomitting/dizziness Medication List - Last Reconciled 05/11/23 by IMTIAZ Rojas-Demetrio albuterol sulfate 90 mcg/actuation 2 puffs inhalation Q6H PRN 30 days cetirizine (Allergy Relief (cetirizine)) 10 mg PO DAILY PRN 30 days comp.stocking,knee,long,medium As directed cyclobenzaprine 10 mg PO BID 14 days fluticasone propionate 50 mcg/actuation 1 spray intranasal DAILY 30 days gabapentin 100 mg PO BID 30 days ibuprofen 600 mg PO Q6H PRN midodrine 5 mg PO BID 30 days olopatadine 0.2% (Pataday Once Daily Relief) 1 drp ophthalmic (eye) DAILY 30 days prednisone 20 mg PO DAILY 7 days valacyclovir 1,000 mg PO Q8H 7 days HPI HPI Comments History of Present Illness Details A 58 y/o female went to ED RUQ pain- given medication for acid that is useless. 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 No nausea, vomiting, hematemesis hematochezia fever chills PFSH Medical History Abdominal pain Acid reflux NAFLD (nonalcoholic fatty liver disease) Surgical History H/O colonoscopy History of breast biopsy History of carpal tunnel surgery of left wrist History of carpal tunnel surgery of right wrist History of hysterectomy History of thumb surgery History of toe surgery Family History Father COPD (chronic obstructive pulmonary disease) Smoker Maternal Aunt Hypertension Sister Breast cancer Mother Hypertension Social History Household Members: Children Housing: Apartment Alcohol intake: never Patient Tobacco Use Status: Never used Tobacco e-Cigarette/Vaping Use: Never Used Second Hand Smoke Exposure: Yes service: No Current occupational status: unemployed 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 Cognitive needs: No Hearing needs: No Vision needs: Yes Review of Systems Const All systems reviewed & are unremarkable except as noted in HPI and below Card Reports chest pain and Reports dyspnea Resp Reports dyspnea GI Denies abdominal pain and Denies change in stool character Physical Exam Vital Signs: Last Vital Signs Pulse 67 05/11/23 14:38 BP 139/70 05/11/23 14:38 BMI result Body Mass Index 23.9 Const General: cooperative, healthy appearing and comfortable Orientation/consciousness: patient oriented x3 Limitations: language barrier Eyes Conjunctivae: conjunctivae normal Sclerae: sclerae normal Resp Effort & Inspection: normal respiratory effort and able to speak in complete sentences Auscultation: clear to auscultation bilaterally GI Palpation (GI): Soft to palpation and nontender Auscultation: normal bowel sounds Skin General skin exam: no rashes or lesions noted (RUQ-) Neuro General: patient oriented x3 Extrem General: Yes full ROM Psych Appearance: grossly normal and well kempt Mental Status: mental status grossly normal Speech and movement: Normal speech and movement present and Clear speech present Affect: normal affect Attitude: cooperative Thought process: Normal thought process present Results Reviewed Results Reviewed: US/US abdomen limited Dr. Perkins- 2019 IMPRESSION: Stable right lower lobe hemangioma measuring 2.4 cm. Previously visualized cyst in the right hepatic lobe is not visualized likely due to its small size. There is increased liver echogenicity. ? Visualized gallbladder, pancreas, CBD and right kidney are unremarkable. Endoscopy Findings: LARYNX: Changes suggestive of LPRD. ESOPHAGUS: Tortuous esophagus with increased tertiary contractions - biopsies were obtained from proximal esophagus to rule out EOE. GE junction at 35 cms, small hiatal hernia 35 to 37 cms. A partially obstucting Schatzki's ring at GE junction (with focal erosions) dilated with 19 and 20 mm CRE balloon for 60 sec at each level. STOMACH: Gastritis Colonoscopy Findings: No polyps were detected. Moderate diverticulosis seen in the sigmoid colon Plan: Await pathology results Patient has an appointment on 05/01/20 in the GI Clinic with IMTIAZ Godoy. Repeat Colonoscopy in 5 years due to past history of colon polyps. Repeat EGD with dilation prn for recurrent dysphagia. Above findings were reviewed with the patient and GERD and Diverticulosis handouts were provided. BIOPSIES SHOWED: A. Stomach, biopsies: Gastric mucosa with mild chronic, inactive gastritis; negative for Helicobacter pylori; negative for intestinal metaplasia/dysplasia. B. Esophagus, proximal, biopsies: Squamous epithelium within normal limits. Assessment & Plan Assessment & Plan (1) Acid reflux: Comment: carafate QID- return 2 weeks for HP UBT Reflux precautions Code(s): K21.9 - Gastro-esophageal reflux disease without esophagitis Plan H pylori breath test if positive will treat Orders: Orders H Pylori Breath Test 2 Weeks A04.8 - Other specified bacterial intestinal infections Medications: New sucralfate 1 g PO QIDACHS PRN 90 tabs 1RF reflux 21 days Discontinued prednisone Discontinued Reason: Patient Completed Course 20 mg PO DAILY 7 days 7 tabs 0RF Patient Instructions: No PPI or antibiotics for 2 weeks She will begin Carafate 1 g q.i.d. Reflux precautions H pylori UBT if positive will treat Encouraged to call questions or concerns Appreciate the opportunity assist in the care the patient Coding Level of Care Code Est Pt Level 3 (75802) Diagnoses Acid reflux K21.9 Time Spent (min) 35 Comment [id number] frequent repetitions
[2023-05-11 14:38] VITALS: BP 139/70; PULSE 67; BMI 23.9
== END 2023-05-11 14:59 | disposition home or self-care (01) ==
PROVIDERS: PCP Physician Assistant; Visit Provider Physician Assistant
DX: K21.9 Gastro-esophageal reflux disease without esophagitis (principal)
CPT/HCPCS: 99213

== ENCOUNTER → 2023-05-11 14:20 | Outpatient (BNVA) | payer OTHER, SELFPAY | PROVIDERS: PCP Physician Assistant; Visit Provider Physician Assistant ==

== ENCOUNTER 2023-05-25 14:25 | Outpatient (REF) | payer OTHER, SELFPAY ==
[2023-05-27 13:48] LABS: H Pylori Breath Test Negative (Negative)
== END 2023-05-25 14:26 | disposition home or self-care (01) ==
LOC: HO.LNP 14:25
PROVIDERS: PCP Physician Assistant; Visit Provider Physician Assistant
DX: A04.8 Other specified bacterial intestinal infections (principal)
CPT/HCPCS: 83013; 99211

== ENCOUNTER 2023-06-06 12:15 | Outpatient (AMB) | payer OTHER, SELFPAY ==
[2023-06-06 12:46] VITALS: BP 136/74; PULSE 75; O2SAT 98; BMI 23.9
--- NOTE | 2023-06-06 12:46 | MHC.PC.OV ---
Vital Signs 06/06/23 12:46 Height 5 ft 4 in Weight 139 lb BMI 23.9 BP 136/74 Blood Pressure Location Lt brachial Position Sitting Pulse 75 Pulse Source Pulse Oximeter Pulse Oximetry (%) 98 Oxygen Delivery Method Room Air Intake Visit Reasons: Throat Discomfort Commercial Relationship Manager Name: Ricci [id number] Information Interpreted: non-clinical & clinical Chip Machine Operator: Not Required per policy Accompanied by: Self / Same As Patient Allergies oxycodone [From PERCOCET] Allergy (Intermediate, Verified 06/06/23 12:46) VOMITING/DIZZINESS tramadol [TRAMADOL] Allergy (Intermediate, Verified 06/06/23 12:46) DIZZINESS acetaminophen [Percocet] Allergy (Unknown, Verified 06/06/23 12:46) vomitting/dizziness Tobacco use date assessed: 12/01/22 Dental Screening Dental Screen Date: 06/06/23 Did you have a dental visit in the last 12 months?: No Did you have a dental problem in the last 6 months where you did not have access to dental care?: No Was dental information given to patient?: Patient has dentist HPI HPI Comments History of Present Illness Details 58-year-old female past medical history significant for asthma, migraines, nonalcoholic fatty liver disease, fibromyalgia. Patient of Jesu Bee presents today for throat discomfort she has strong pain in her throat x3 days. Patient states pain has resolved but she does discomfort when swallowing. Patient denies sore throat, fever, chills, nasal congestion and cough. Patient reports previously on PPI therapy omeprazole however did not work now she is on sucralfate q.i.d. [facility] Medical History Acid reflux NAFLD (nonalcoholic fatty liver disease) Abdominal pain Surgical History H/O colonoscopy History of breast biopsy History of toe surgery History of hysterectomy History of thumb surgery History of carpal tunnel surgery of right wrist History of carpal tunnel surgery of left wrist Family History Father COPD (chronic obstructive pulmonary disease) Smoker Maternal Aunt Hypertension Sister Breast cancer Mother Hypertension Social History Household Members: Children Housing: Apartment Alcohol intake: never Patient Tobacco Use Status: Never used Tobacco e-Cigarette/Vaping Use: Never Used Second Hand Smoke Exposure: Yes service: No Current occupational status: unemployed 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 1. Little interest or pleasure in doing things: several days 2. Feeling down, depressed, or hopeless: not at all 3. Trouble falling or staying asleep, or sleeping too much: several days 4. Feeling tired or having little energy: not at all 5. Poor appetite or overeating: not at all 6. Feeling bad about yourself - or that you are a failure or have let yourself or your family down: not at all 7. Trouble concentrating on things, such as reading the newspaper or watching television: not at all 8. Moving or speaking so slowly that other people could have noticed. Or the opposite - being so fidgety or restless that you have been moving around a lot more than usual: not at all 9. Thoughts that you would be better off or of hurting yourself in some way: not at all Total score: 2 Depression Screening Interpretation: Negative [id number] - PHQ-9 Billing: Yes Source: Developed by Drs. Landon Beltre, Robbi Courtney and colleagues, with an educational floridalma from [employer]. Thrive Questionnaire Date Thrive assessed: 12/01/22 AUDIT C Alcohol Use Questionnaire (AUDIT-C) 1. How often do you have a drink containing alcohol?: Never 3. How often do you have six or more drinks on one occasion?: Never Total Score: 0 Score Reviewed/Action Taken: Yes SHIRA-7 AMB Questionnaire SHIRA-7 Date SHIRA - 7 assessed: 12/01/22 Source: Developed by Drs. Landon Beltre, Robib Courtney and colleagues, with an educational floridalma from [employer]. Review of Systems Const Denies chills, Denies fatigue, Denies fever(s) and Denies poor appetite Eyes Denies no additional complaints ENT Reports Normal hearing present and Reports dysphagia Card Denies chest pain, Denies syncope, Denies rapid heart rate and Denies dyspnea Resp Denies cough and Denies dyspnea GI Denies change in stool character, Denies constipation, Reports dysphagia, Denies diarrhea, Denies nausea and Denies vomiting Denies urinary frequency, Denies dysuria and Denies urinary urgency Neuro Reports Normal hearing present, Denies confusion and Denies syncope Psych Denies confusion Endo Denies fatigue Physical exam (Primary Care) Vital Signs: Last Vital Signs Pulse 75 06/06/23 12:46 BP 136/74 06/06/23 12:46 Pulse Ox 98 06/06/23 12:46 Oxygen Delivery Method Room Air 06/06/23 12:46 BMI result Body Mass Index 23.9 Tobacco/Smoking Status: Tobacco use Status Tobacco use date assessed 12/01/22 06/06/23 12:47 Patient Tobacco Use Status Never used Tobacco 06/06/23 12:47 e-Cigarette/Vaping Use Never Used 06/06/23 12:47 PHQ-9: PHQ-9 Score PHQ-9: Total score 2 06/06/23 13:00 Depression Screening Interpretation: Negative Thrive Assessment: Date of Thrive Assessment Date Thrive assessed 12/01/22 06/06/23 12:47 Const General: No confusion Orientation/consciousness: No confusion HENMT Head: Yes normocephalic and Yes atraumatic Ears: external ears normal and TM's normal bilaterally General nose exam: Normal external nose present and Normal nasal mucous membranes and turbinates present Face and sinus: Yes normal facial exam and Yes sinuses nontender Mouth: moist mucous membranes Throat: Yes tonsils normal Eyes Conjunctivae: conjunctivae normal Neck Neck: Yes no lymphadenopathy and Yes supple Thyroid: Thyroid normal Chest Chest palpation & inspection: normal inspection of the chest Resp Effort & Inspection: normal respiratory effort Auscultation: clear to auscultation bilaterally, no crackles, no rhonchi and no wheezes Cardio Rate: regular rate Rhythm: regular rhythm Heart sounds: S1 normal heart sound present and S2 normal heart sound present GI Inspection: Yes normal to inspection Neuro General: No confusion Cranial nerves: Yes Normal hearing present Extrem General: No edema Assessment and Plan Assessment & Plan (1) Dysphagia: Code(s): R13.10 - Dysphagia, unspecified Plan: Full order modified barium swallow to further evaluate discomfort when swallowing. (2) Acid reflux: Comment: carafate QID- return 2 weeks for HP UBT Reflux precautions Code(s): K21.9 - Gastro-esophageal reflux disease without esophagitis Plan: Continue on sulcrafate. Avoid the foods that cause that, usually spicy foods, tomato products, juices, coffee, soda and foods that you're sensitive to.? After eating do not lie down, allow 3-4 hours before lying down. And keep the head of the bed above 30 degrees to avoid the acid from going up. Plan Keep scheduled annual exam with PCP in September or follow-up sooner if needed. Orders: Orders FL barium swallow modified Today R13.10 - Dysphagia, unspecified Coding Level of Care Code Est Pt Level 3 (47081) Diagnoses Dysphagia R13.10 Acid reflux K21.9
== END 2023-06-06 13:26 | disposition home or self-care (01) ==
PROVIDERS: PCP Physician Assistant; Visit Provider Nurse Practitioner Family
DX: R13.10 Dysphagia, unspecified (principal); K21.9 Gastro-esophageal reflux disease without esophagitis
CPT/HCPCS: 99213

== ENCOUNTER 2023-08-22 10:24 | Outpatient (REF) | payer OTHER, SELFPAY ==
--- NOTE | ~2023-08-22 | MM_ITS ---
EXAMINATION: MM SCREENING DIGITAL BREAST TOMOSYNTHESIS, BILATERAL CLINICAL INFORMATION: Screening. Asymptomatic. COMPARISON: Mammography: This study is compared with prior exams dating back to 2019. TECHNIQUE: Digital breast tomosynthesis is performed in both the craniocaudal and mediolateral oblique views along with computer-aided detection (CAD). Synthesized 2D images are generated from the tomosynthesis. FINDINGS: There are scattered areas of fibroglandular density (ACR BI-RADS breast composition Category b). There are no significant masses, abnormal calcifications, or other abnormalities. There is an unchanged, benign, focal asymmetry in the superior aspect of the right breast which has been shown to represent a benign cyst in the past. MM/MM tomosynthesis screening BI IMPRESSION: No mammographic evidence of malignancy. ASSESSMENT: BI-RADS BI-RADS 2 - Benign Findings RECOMMENDATION: Routine annual mammography screening. 1 year F/U This examination should not preclude the clinical evaluation of a suspicious palpable abnormality. This patient's information was entered into a reminder system with a target due date for their next mammogram.
== END 2023-08-22 10:25 | disposition home or self-care (01) ==
LOC: HO.MAMMO 10:24
PROVIDERS: PCP Physician Assistant; Visit Provider Physician Assistant
DX: Z12.31 Encounter for screening mammogram for malignant neoplasm of breast (principal)
CPT/HCPCS: 77063; 77067

== ENCOUNTER → 2023-08-22 10:45 | Outpatient (BNV) | payer OTHER, SELFPAY | PROVIDERS: PCP Physician Assistant; Visit Provider Radiology Diagnostic Radiology | DX: Z12.31 Encounter for screening mammogram for malignant neoplasm of breast (principal) | CPT/HCPCS: 77063; 77067 ==

== ENCOUNTER 2023-12-14 07:09 | Outpatient (AMB) | payer OTHER, SELFPAY ==
--- NOTE | 2023-12-14 07:30 | MHC.OFFVIS ---
Intake Vital Signs 12/14/23 07:33 Height 5 ft 1 in Weight 140 lb BMI 26.4 BP 119/72 Blood Pressure Location Lt brachial Pulse 82 Intake Visit Reasons: abdominal pain Intake Note: Patient follow up for abdominal pain. Patient cc: abdominal pain with burning sensation with food and no good appetite Termite Control Service Representative Required: Yes Termite Control Service Representative Name: Natividad [id number] Accompanied by: Self / Same As Patient Allergies oxycodone [From PERCOCET] Allergy (Intermediate, Verified 12/14/23 07:29) VOMITING/DIZZINESS tramadol [TRAMADOL] Allergy (Intermediate, Verified 12/14/23 07:29) DIZZINESS acetaminophen [Percocet] Allergy (Unknown, Verified 12/14/23 07:29) vomitting/dizziness Medication List - Last Reconciled 12/14/23 by Eleni Clifton PA-C albuterol sulfate 90 mcg/actuation 2 puffs inhalation Q6H PRN 30 days cetirizine (Allergy Relief (cetirizine)) 10 mg PO DAILY PRN 30 days comp.stocking,knee,long,medium As directed cyclobenzaprine 10 mg PO BID 14 days fluticasone propionate 50 mcg/actuation 1 spray intranasal DAILY 30 days gabapentin 100 mg PO BID 30 days ibuprofen 600 mg PO Q6H PRN midodrine 5 mg PO BID 30 days olopatadine 0.2% (Pataday Once Daily Relief) 1 drp ophthalmic (eye) DAILY 30 days valacyclovir 1,000 mg PO Q8H 7 days HPI HPI Comments History of Present Illness Details A 58 y/o female seen - with RUQ pain- returns with epigastric pain-2 wks ago after eating a strong pain now intermittent not strong acid- no medications EGD/ colon- 10/2019- reviewed w/ pt- No N/V/ D- fever or chills PFSH Medical History Acid reflux NAFLD (nonalcoholic fatty liver disease) Abdominal pain Surgical History H/O colonoscopy History of breast biopsy History of toe surgery History of hysterectomy History of thumb surgery History of carpal tunnel surgery of right wrist History of carpal tunnel surgery of left wrist Family History Father COPD (chronic obstructive pulmonary disease) Smoker Maternal Aunt Hypertension Sister Breast cancer Mother Hypertension Social History Household Members: Children Housing: Apartment Alcohol intake: never Patient Tobacco Use Status: Never used Tobacco e-Cigarette/Vaping Use: Never Used Second Hand Smoke Exposure: Yes service: No Current occupational status: unemployed 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 Cognitive needs: No Hearing needs: No Vision needs: Yes Review of Systems GI Reports abdominal pain, Denies change in bowel habits and Reports heartburn Physical Exam Vital Signs: Last Vital Signs Pulse 82 12/14/23 07:33 BP 119/72 12/14/23 07:33 BMI result Body Mass Index 26.4 Const General: cooperative, healthy appearing and comfortable Orientation/consciousness: patient oriented x3 Limitations: language barrier Resp Effort & Inspection: normal respiratory effort and able to speak in complete sentences Auscultation: clear to auscultation bilaterally, no rales, no rhonchi and no wheezes Cardio Rate: regular rate Rhythm: regular rhythm Heart sounds: S1 normal heart sound present and S2 normal heart sound present GI Palpation (GI): Soft to palpation and nontender Auscultation: normal bowel sounds Neuro General: patient oriented x3 Extrem General: Yes full ROM Psych Appearance: grossly normal and well kempt Mental Status: mental status grossly normal Speech and movement: Normal speech and movement present and Clear speech present Affect: normal affect Attitude: cooperative Thought content: Normal thought content present Results Reviewed Results Reviewed: 03/2020- [facility] Endoscopy Findings: LARYNX: Changes suggestive of LPRD. ESOPHAGUS: Tortuous esophagus with increased tertiary contractions - biopsies were obtained from proximal esophagus to rule out EOE. GE junction at 35 cms, small hiatal hernia 35 to 37 cms. A partially obstucting Schatzki's ring at GE junction (with focal erosions) dilated with 19 and 20 mm CRE balloon for 60 sec at each level. STOMACH: Gastritis Colonoscopy Findings: No polyps were detected. Moderate diverticulosis seen in the sigmoid colon Plan: Await pathology results Patient has an appointment on 05/01/20 in the GI Clinic with IMTIAZ Godoy. Repeat Colonoscopy in 5 years due to past history of colon polyps. Repeat EGD with dilation prn for recurrent dysphagia. Above findings were reviewed with the patient and GERD and Diverticulosis handouts were provided. BIOPSIES SHOWED: A. Stomach, biopsies: Gastric mucosa with mild chronic, inactive gastritis; negative for Helicobacter pylori; negative for intestinal metaplasia/dysplasia. B. Esophagus, proximal, biopsies: Squamous epithelium within normal limits. Condition Post-Op: Stable Complications: None Grafts or Implants: None 02/2023 US/US abdomen limited IMPRESSION: Stable right lower lobe hemangioma measuring 2.4 cm. Previously visualized cyst in the right hepatic lobe is not visualized likely due to its small size. There is increased liver echogenicity. Visualized gallbladder, pancreas, CBD and right kidney are unremarkable. Assessment & Plan Assessment & Plan (1) Acid reflux: Comment: carafate QID- return 2 weeks for HP UBT Reflux precautions Code(s): K21.9 - Gastro-esophageal reflux disease without esophagitis (2) Epigastric pain: Code(s): R10.13 - Epigastric pain Plan cbc cmp pantoprazole 20mg Orders: Orders Complete Blood Count Auto Diff Today K21.9 - Gastro-esophageal reflux disease without esophagitis, R10.13 - Epigastric pain Comprehensive Met. Panel Today K58.9 - Irritable bowel syndrome without diarrhea Medications: New pantoprazole 20 mg PO QAM 30 days 30 tabs 6RF Patient Instructions: cbc cmp pantoprazole 20mg Coding Level of Care Code Est Pt Level 3 (81246) Diagnoses Acid reflux K21.9 Epigastric pain R10.13 Time Spent (min) 30 Comment [id number] interp
[2023-12-14 07:33] VITALS: BP 119/72; PULSE 82; BMI 26.4
== END 2023-12-14 08:07 | disposition home or self-care (01) ==
PROVIDERS: PCP Physician Assistant; Visit Provider Physician Assistant
DX: K21.9 Gastro-esophageal reflux disease without esophagitis (principal); R10.13 Epigastric pain
CPT/HCPCS: 99213

== ENCOUNTER 2023-12-14 07:09 | Outpatient (REF) | payer OTHER, SELFPAY ==
[2023-12-14 08:46] LABS: MANUAL DIFF FLAG NO
[2023-12-14 09:02] LABS: Basophils Percent Auto 0.2 % (0-2); Eosinophils Absolute Auto 0.1 X10*3/uL (0.0-0.4); Eosinophils Percent Auto 1.1 % (0-4); Hematocrit 38.3 % (37.0-47.0); Hemoglobin 12.9 g/dl (12.0-16.0); Imm Gran Abs Auto 0.01 X10*3/uL (0.00-0.03); Imm Gran Pct Auto 0.2 % (0.0-0.4); Lymphocytes Absolute Auto 1.9 X10*3/uL (1.2-4.9); Lymphocytes Percent Auto 32.7 % (20-40); Mean Corpuscular HGB Conc 33.7 g/dl (31.0-35.0); Mean Corpuscular Hemoglobin 29.7 pg (27.0-33.0); Mean Platelet Volume 9.8 fL (9.4-12.3); Monocytes Absolute Auto 0.5 X10*3/uL (0.1-1.2); Monocytes Percent Auto 8.8 % (2-11); Neutrophils Absolute Auto 3.2 x10*3/uL (2.0-8.3); Platelet Count 195 X10*3/uL (160-400); Red Blood Count 4.35 X10*6/uL (4.20-5.50); White Blood Count 5.7 X10*3/uL (4.8-10.8)
[2023-12-14 09:36] LABS: Alanine Aminotransferase 20 U/L (0-31); Albumin Level 4.2 g/dL (3.5-5.0); Alkaline Phosphatase 73 U/L (39-117); Anion Gap 11 (12-20); Aspartate Amino Transferase 17 U/L (5-31); Bilirubin Total 0.5 mg/dL (0.0-1.0); Blood Urea Nitrogen 17 mg/dL (9-16); Calcium 9.1 mg/dL (8.4-10.2); Carbon Dioxide 28 mmol/L (22-29); Chloride 106 mmol/L (96-108); Estimated Glomerular Filt Rate > 60; Glucose Random 101 mg/dL (60-115); Sodium 141 mmol/L (135-145); Total Protein 7.2 g/dL (6.5-8.0)
== END 2023-12-14 07:10 | disposition home or self-care (01) ==
LOC: HO.LAB 07:09
PROVIDERS: PCP Physician Assistant; Visit Provider Physician Assistant
DX: K21.9 Gastro-esophageal reflux disease without esophagitis (principal); R10.13 Epigastric pain; K58.9 Irritable bowel syndrome, unspecified
CPT/HCPCS: 36415; 80053; 85025

== ENCOUNTER 2023-12-28 06:16 | Emergency (ER) | payer OTHER, SELFPAY ==
--- NOTE | ~2023-12-28 | XR_ITS ---
STUDY: Bilateral knees INDICATION: Bilateral atraumatic knee pain COMPARISON: 02/21/2023 right knee TECHNIQUE: 4 views each knee FINDINGS: Alignment and articulations are maintained. No significant joint space narrowings. No fracture, dislocation or joint effusion. XR/XR knee RT 4V IMPRESSION: No acute bony pathology bilateral knees.
--- NOTE | ~2023-12-28 | XR_ITS ---
STUDY: Bilateral knees INDICATION: Bilateral atraumatic knee pain COMPARISON: 02/21/2023 right knee TECHNIQUE: 4 views each knee FINDINGS: Alignment and articulations are maintained. No significant joint space narrowings. No fracture, dislocation or joint effusion. XR/XR knee LT 4V IMPRESSION: No acute bony pathology bilateral knees.
[2023-12-28 07:03] VITALS: BP 151/98; PULSE 88; RESP 16; TEMP 36.7; O2SAT 98; BMI 26.4
--- NOTE | 2023-12-28 07:42 | ED.EXTPRO ---
HPI - Extremity Problem General Chief complaint: Extremity Injury, Lower Stated complaint: leg pain Time Seen by Provider: 12/28/23 07:18 Source: patient, old records reviewed and clinical services assistant Mode of arrival: ambulatory Limitations: no limitations History of Present Illness HPI Narrative: 58 yo female with PMH of OSMAN, fibromyalgia reports atraumatic bilateral knee pain no fevers no rash no tick bites it hurts and clicks when she walks. No response to tramadol Complaint: joint pain Onset (ago): day(s) (2) Pain Consistency: intermittent Location: left, right and knee Quality: aching Radiation: none Relieving factors: nothing Exacerbating factors: walking Associated symptoms: denies other symptoms Related Data Previous Rx's ?Medication ?Instructions ?Recorded albuterol sulfate 90 mcg/actuation 2 puff inhalation Q6H PRN 02/04/21 aerosol inhaler shortness of breath or wheezing 30 days #8.5 grams cetirizine 10 mg capsule (Allergy 10 mg PO DAILY PRN allergy 02/15/22 Relief (cetirizine)) symptoms 30 days #30 caps comp.stocking,knee,long,medium #2 ea 05/11/22 midodrine 5 mg tablet 5 mg PO BID 30 days #60 tabs 11/16/22 ibuprofen 600 mg tablet 600 mg PO Q6H PRN fever or pain 11/18/22 #30 tabs olopatadine 0.2 % eye drops 1 drp ophthalmic (eye) DAILY 30 01/04/23 (Pataday Once Daily Relief) days #2.5 mL valacyclovir 1 gram tablet 1,000 mg PO Q8H 7 days #21 tabs 02/27/23 cyclobenzaprine 10 mg tablet 10 mg PO BID muscle spasm 14 days 05/18/23 #28 tabs gabapentin 100 mg capsule 100 mg PO BID 30 days #60 caps 05/18/23 fluticasone propionate 50 1 spray intranasal DAILY 30 days 08/14/23 mcg/actuation nasal #16 grams spray,suspension pantoprazole 20 mg tablet,delayed 20 mg PO QAM 30 days #30 tabs 12/14/23 release diclofenac sodium 1 % topical gel 2 g topical QID #100 grams 12/28/23 (Voltaren Arthritis Pain) Allergies Allergy/AdvReac Type Severity Reaction Status Date / Time oxycodone [From PERCOCET] Allergy Intermediate VOMITING/DI Verified 12/28/23 07:12 ZZINESS tramadol [TRAMADOL] Allergy Intermediate DIZZINESS Verified 12/28/23 07:12 Review of Systems Review of Systems: Constitutional : No Fever, No Chills ENT/Mouth : No Ear Pain, No Hoarseness, No sore throat Eyes: No Eye Pain, No Swelling, No Redness, No Foreign Body Cardiovascular : No Chest Pain, No SOB Respiratory : No Cough, No Dyspnea Gastrointestinal : No Nausea, No Vomiting, No Diarrhea, No abdominal Pain Genitourinary : No Dysuria, No Hematuria Musculoskeletal : positive joint pain, No Myalgias, No Joint Swelling Skin : No Skin lacerations, No rash Neuro : No Weakness, No Numbness, No Loss of Consciousness, No Dizziness, No Headache Psych : No Anxiety/Panic, No Depression Heme/Lymph: no easy bruising, no Lymphadenopathy Endocrine : No Polyuria, No Polydipsia All other systems reviewed and are negative PMFSH Past Medical History Attestation statement: The following information was validated with the patient. Source: old records reviewed Medical History Acid reflux NAFLD (nonalcoholic fatty liver disease) Abdominal pain Surgical History H/O colonoscopy History of breast biopsy History of toe surgery History of hysterectomy History of thumb surgery History of carpal tunnel surgery of right wrist History of carpal tunnel surgery of left wrist Family History Family History Father COPD (chronic obstructive pulmonary disease) Smoker Maternal Aunt Hypertension Sister Breast cancer Mother Hypertension Social History Social History Household Members: Children Housing: Apartment Alcohol intake: never Patient Tobacco Use Status: Never used Tobacco e-Cigarette/Vaping Use: Never Used Second Hand Smoke Exposure: Yes Advance Directives: No Advance Directives Information Provided: No service: No Current occupational status: unemployed 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 Oriented X3. No acute distress. Eyes: Pupils equal, round and reactive to light. ENT: Pharynx normal. Neck: Normal inspection. Neck supple. CVS: Normal heart rate and rhythm. Pulses normal. Respiratory: No respiratory distress. Breath sounds normal. Abdomen: Soft and nontender. Skin: Skin warm and dry. Normal skin color. Normal skin turgor. Extremities: No lower extremity edema. No calf ttp normal appearing knees no erythema no effusion distal NV intact Neuro: Oriented X 3. No motor deficit. No sensory deficit. Medical Decision Making Medical Decision Making MDM Narrative: 58 yo female with OSMAN, fibromyalgia here with c/o bilateral knee pain and clicking when she walks she has no signs of infection she is NV intact at this time will obtain xrays and start on medications. I did tell her she possibly has internal derangement and needs to see her doctor for MRI Differential Diagnosis Differential Diagnoses: The differential diagnosis associated with the presentation includes arthritis, bakers cyst, overuse Independent Interpretation I performed an independent interpretation of an: Plain X-Ray (no fracture) Radiology Impression Discussion of test interpretation with radiology: I have reviewed the radiologist's reading. External Record Review External record reviewed: Office record Prescription Management I considered prescription management with: Other Discharge Plan Discharge Clinical Impression: Arthralgia Qualifiers: Joint pain location: knee Laterality: bilateral Qualified Code(s): M25.561 - Pain in right knee Patient Disposition: Home, Self-Care Instructions: Arthralgia (ED) Additional Instructions: return for redness, increased swelling, fevers follow up with doctor for further workup if this worsens may need MRI FINDINGS: Alignment and articulations are maintained. No significant joint space narrowings. No fracture, dislocation or joint effusion. XR/XR knee RT 4V IMPRESSION: No acute bony pathology bilateral knees. Prescriptions: New diclofenac sodium [Voltaren Arthritis Pain] 1 % gel 2 g topical QID Qty: 100 0RF Rx Instructions: apply to single elbow, wrist or hand; for hand includes palm/fingers/back of hand No Action albuterol sulfate 90 mcg/actuation HFA aerosol inhaler 2 puff inhalation Q6H PRN (Reason: shortness of breath or wheezing) 30 Days Qty: 8.5 1RF Allergy Relief (cetirizine) 10 mg capsule 10 mg PO DAILY PRN (Reason: allergy symptoms) 30 Days Qty: 30 3RF (DME) comp.stocking,knee,long,medium Misc See Rx Instructions .Route Qty: 2 0RF Rx Instructions: As directed midodrine 5 mg tablet 5 mg PO BID 30 Days Qty: 60 3RF Rx Instructions: do not give last dose of day after 6PM or within 4 hrs of bedtime olopatadine [Pataday Once Daily Relief] 0.2 % drops 1 drp ophthalmic (eye) DAILY 30 Days Qty: 2.5 2RF cyclobenzaprine 10 mg tablet 10 mg PO BID 14 Days Qty: 28 0RF gabapentin 100 mg capsule 100 mg PO BID 30 Days Qty: 60 3RF fluticasone propionate 50 mcg/actuation spray,suspension 1 spray intranasal DAILY 30 Days Qty: 16 1RF Rx Instructions: administer into each nostril ibuprofen 600 mg tablet 600 mg PO Q6H PRN (Reason: fever or pain) Qty: 30 0RF valacyclovir 1 gram tablet 1,000 mg PO Q8H 7 Days Qty: 21 0RF pantoprazole 20 mg tablet,delayed release (DR/EC) 20 mg PO QAM 30 Days Qty: 30 6RF Stand Alone Forms: Work/School Release Print Language: Chilean
[2023-12-28 08:19] VITALS: BP 147/86; PULSE 83; RESP 16; TEMP 36.6; O2SAT 98
== END 2023-12-28 08:21 | disposition home or self-care (01) ==
PROVIDERS: Emergency Provider Emergency Medicine; PCP Physician Assistant
DX: M25.561 Pain in right knee (principal); M25.562 Pain in left knee
CPT/HCPCS: 73564; 99282; 99283

== ENCOUNTER 2024-01-05 14:43 | Outpatient (AMB) | payer OTHER, SELFPAY ==
[2024-01-05 15:01] VITALS: BP 136/78; PULSE 92; O2SAT 98; BMI 27.1
--- NOTE | 2024-01-05 15:01 | A.OFFPC_ITS ---
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: Yes Reservoir Engineering Manager Language: Mauritanian Accompanied by: Self / Same As Patient Allergies oxycodone [From PERCOCET] Allergy (Intermediate, Verified 01/05/24 15:21) VOMITING/DIZZINESS tramadol [TRAMADOL] Allergy (Intermediate, Verified 01/05/24 15:21) DIZZINESS Medication List - Last Reconciled 01/05/24 by Fahad Bee PA-C albuterol sulfate 90 mcg/actuation 2 puffs inhalation Q6H PRN 30 days cetirizine (Allergy Relief (cetirizine)) 10 mg PO DAILY PRN 30 days comp.stocking,knee,long,medium As directed cyclobenzaprine 10 mg PO BID 14 days diclofenac sodium 1% (Voltaren Arthritis Pain) 2 grams topical QID fluticasone propionate 50 mcg/actuation 1 spray intranasal DAILY 30 days gabapentin 100 mg PO BID 30 days ibuprofen 600 mg PO Q6H PRN midodrine 5 mg PO BID 30 days olopatadine 0.2% (Pataday Once Daily Relief) 1 drp ophthalmic (eye) DAILY 30 days pantoprazole 20 mg PO QAM 30 days valacyclovir 1,000 mg PO Q8H 7 days Tobacco use date assessed: 12/01/22 Dental Screening Dental Screen Date: 06/06/23 HPI [facility] [place]27 leg pain 2 HPI0 Details Patient is a 58 y/o F here today for a ER follow up. Recently seen at the [place] [facility] for bilateral knee pain, Xrays taken which were normal. Report having intermittently swelling around and behind her knee. She reports her pain is still present though has gotten a bit better. She does report some instability in her right knee due to the pain and swelling. She otherwise denies any recent trauma or recent falls that may have injured her lower extremities. [facility] Medical History Acid reflux NAFLD (nonalcoholic fatty liver disease) Abdominal pain Surgical History H/O colonoscopy History of breast biopsy History of toe surgery History of hysterectomy History of thumb surgery History of carpal tunnel surgery of right wrist History of carpal tunnel surgery of left wrist Family History Father COPD (chronic obstructive pulmonary disease) Smoker Maternal Aunt Hypertension Sister Breast cancer Mother Hypertension Social History Household Members: Children Housing: Apartment Alcohol intake: never Patient Tobacco Use Status: Never used Tobacco e-Cigarette/Vaping Use: Never Used Second Hand Smoke Exposure: Yes service: No Current occupational status: unemployed 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 1. Little interest or pleasure in doing things: not at all 2. Feeling down, depressed, or hopeless: not at all 3. Trouble falling or staying asleep, or sleeping too much: not at all 4. Feeling tired or having little energy: not at all 5. Poor appetite or overeating: not at all 6. Feeling bad about yourself - or that you are a failure or have let yourself or your family down: not at all 7. Trouble concentrating on things, such as reading the newspaper or watching television: not at all 8. Moving or speaking so slowly that other people could have noticed. Or the opposite - being so fidgety or restless that you have been moving around a lot more than usual: not at all 9. Thoughts that you would be better off or of hurting yourself in some way: not at all Total score: 0 Depression Screening Interpretation: Negative Depression Screening Done: Yes 48082 - PHQ-9 Billing: Yes Source: Developed by Drs. Landon Beltre, Khadra Tinajero, Robbi Baker and colleagues, with an educational floridalma from [employer]. Thrive Questionnaire Date Thrive assessed: 01/05/24 I am a: Patient What is your living situation today?: I have a steady place to live Within the past 12 months, did the food you bought not last and you didn't have the money to get more?: Never true Within the past 12 months, did you worry whether your food would run out before you got money to buy more?: Never true Do you have trouble paying for medicines?: No Do you have trouble getting transportation to medical appointments?: No Do you have trouble paying your heating and electricity bill?: No Do you have trouble taking care of your child, family member or friend?: No Do you have trouble with day-to-day activities such as bathing, preparing meals, shopping, managing finances, etc.?: No Are you currently unemployed and looking for a job?: No Are you interested in more education?: No Please select the resources that you would like help with: None Currently or been in a relationship where the following occur: no concerns reported THRIVE Score: 0 AUDIT C Alcohol Use Questionnaire (AUDIT-C) 1. How often do you have a drink containing alcohol?: Never 3. How often do you have six or more drinks on one occasion?: Never Total Score: 0 SHIRA-7 AMB Questionnaire SHIRA-7 Date SHIRA - 7 assessed: 01/05/24 Feeling nervous, anxious, or on edge: 0 = Not at all Not being able to stop or control worryin = Not at all Worrying too much about different things: 0 = Not at all Trouble relaxin = Not at all Being so restless that it is hard to sit still: 0 = Not at all Becoming easily annoyed or irritable: 0 = Not at all Feeling afraid as if something awful might happen: 0 = Not at all Total SHIRA-7 score (0-4 normal; 5-9 mild; 10-14 moderate; 15-21 severe): 0 Source: Developed by Drs. Landon Beltre, Khadra Tinajero, Robbi Baker and colleagues, with an educational floridalma from [employer]. SHIRA-7 Assessment Billing SHIRA-7 Assessment Tool: SHIRA-7 Assessment 84557 Review of Systems Const Denies headache(s) Eyes Denies loss of vision ENT Denies vertigo, Denies dizziness, Denies headache(s) and Denies sore throat Card Denies chest pain, Denies leg edema and Denies lightheadedness Resp Denies cough, Denies hemoptysis and Denies wheezing GI Denies abdominal pain, Denies melena, Denies constipation, Denies diarrhea and Denies vomiting Denies urinary frequency, Denies dysuria and Denies urinary urgency Musc Denies arthralgias, Denies joint swelling, Denies numbness and Denies tingling Neuro Denies Abnormal speech present, Denies behavioral changes, Denies vertigo, Denies dizziness, Denies headache(s), Denies loss of vision, Denies memory loss, Denies numbness and Denies tingling Psych Denies anxiety, Denies behavioral changes, Denies depression, Denies memory loss and Denies panic attacks Gorge/Lymph Denies easy bleeding and Denies easy bruising Aller/Immun Denies wheezing Physical exam (Primary Care) Vital Signs: Last Vital Signs Pulse 92 01/05/24 15:01 BP 136/78 01/05/24 15:01 Pulse Ox 98 01/05/24 15:01 Oxygen Delivery Method Room Air 01/05/24 15:01 BMI result Body Mass Index 27.1 Tobacco/Smoking Status: Tobacco use Status Tobacco use date assessed 12/01/22 01/05/24 15:01 Patient Tobacco Use Status Never used Tobacco 01/05/24 15:01 e-Cigarette/Vaping Use Never Used 01/05/24 15:01 PHQ-9: PHQ-9 Score PHQ-9: Total score 0 01/05/24 15:27 Depression Screening Interpretation: Negative Thrive Assessment: Date of Thrive Assessment Date Thrive assessed 01/05/24 01/05/24 15:06 Currently or been in a relationship where the following occur: no concerns reported Const General: healthy appearing, no acute distress, alert and awake Nutritional Appearance: well nourished Orientation/consciousness: oriented to person, oriented to place and oriented to time [facility] Ears: TM's normal bilaterally General nose exam: Normal nasal mucous membranes and turbinates present Eyes Conjunctivae: conjunctivae normal Sclerae: sclerae normal Pupils: Equal, round and reactive pupils present Neck Neck: Yes no lymphadenopathy and Yes no JVD Thyroid: Thyroid normal Carotids: no bruits Resp Effort & Inspection: normal respiratory effort and not tachypneic Auscultation: no crackles, no rales, no rhonchi and no wheezes Cardio Rate: regular rate Rhythm: regular rhythm Heart sounds: no murmurs and normal S1 and S2 GI Palpation (GI): Soft to palpation, nontender, no hepatomegaly and no splenomegaly Auscultation: normal bowel sounds Skin General skin exam: no rashes or lesions noted and dry skin Neuro General: oriented to person, oriented to place and oriented to time Cranial nerves: Yes Equal, round and reactive pupils present Speech: No Abnormal speech present Gait exam (Neuro): Normal gait present Motor exam (neuro): no tremor noted Extrem Right upper extremity: full ROM Left upper extremity: full ROM Right lower extremity: full ROM; no edema Left lower extremity: full ROM; no edema Knee images: 2 1. SOME LOCALIZED EDEMA ON THE DISTAL LATERAL ASPECT OF KNEE AND UPPER HOWARD. PATIENT HAS FULL RANGE OF MOTION OF THE RIGHT KNEE, NO LIGAMENTOUS LAXITY NOTED Psych Mental Status: mental status grossly normal Speech and movement: Normal speech and movement present Affect: normal affect Attitude: cooperative Thought process: Normal thought process present Assessment and Plan Assessment & Plan (1) Bilateral knee swelling: Code(s): M25.461 - Effusion, right knee; M25.462 - Effusion, left knee Plan: Patient continues with right knee pain in some instability. No falls reported or trauma to the knee. Patient would likely benefit from physical therapy and if she does not will consider MRI to evaluate for a atraumatic meniscal or ligament tear. Orders: Orders 2 PT Evaluation and Treatment 01/05/24 M25.461 - Effusion, right knee, M25.462 - Effusion, left knee, M25.561 - Pain in right knee, M25.562 - Pain in left knee Medications: Changed 2 From diclofenac sodium 1% (Voltaren Arthritis Pain) apply to single elbow, wrist or hand; for hand includes palm/fingers/back of hand 2 grams topical QID 100 grams 0RF M25.461 - Effusion, right knee, M25.462 - Effusion, left knee To diclofenac sodium 1% (Voltaren Arthritis Pain) apply to single elbow, wrist or hand; for hand includes palm/fingers/back of hand 2 grams topical QID 30 days 100 grams 2RF M25.461 - Effusion, right knee, M25.462 - Effusion, left knee From cetirizine (Allergy Relief (cetirizine)) 10 mg PO DAILY 30 days PRN 30 caps 3RF allergy symptoms J30.9 - Allergic rhinitis, unspecified To cetirizine (Allergy Relief (cetirizine)) 10 mg PO DAILY 30 days 30 caps 3RF allergy symptoms J30.9 - Allergic rhinitis, unspecified From cyclobenzaprine 10 mg PO BID 14 days 28 tabs 0RF muscle spasm M54.2 - Cervicalgia To cyclobenzaprine 10 mg PO BID 30 days 60 tabs 3RF muscle spasm M54.2 - Cervicalgia Refilled 2 gabapentin 100 mg PO BID 30 days 60 caps 3RF M79.7 - Fibromyalgia Coding Level of Care Code Est Pt Level 3 (64277) Diagnoses Bilateral knee swelling M25.461; M25.462 Additional Codes SHIRA-7 Assessment Billing - SHIRA-7 Assessment Tool: SHIRA-7 Assessment 74946 ([id number])
== END 2024-01-05 16:08 | disposition home or self-care (01) ==
PROVIDERS: PCP Physician Assistant; Visit Provider Physician Assistant
DX: M25.461 Effusion, right knee (principal); M25.462 Effusion, left knee
CPT/HCPCS: 99213

== ENCOUNTER 2024-04-23 12:09 | Outpatient (REF) | payer OTHER, SELFPAY | END 2024-04-23 12:10 | disposition home or self-care (01) | LOC: HO.HOSX 12:09 | PROVIDERS: Visit Provider Orthopaedic Surgery | DX: Z13.89 Encounter for screening for other disorder (principal) ==

== ENCOUNTER 2024-05-17 13:23 | Outpatient (AMB) | payer OTHER, SELFPAY ==
[2024-05-17 13:25] VITALS: BP 122/68; PULSE 69; O2SAT 97; BMI 27.7
--- NOTE | 2024-05-17 13:25 | A.OFFPC_ITS ---
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: Yes Zinc Plating Machine Operator Language: Cuban Accompanied by: Self / Same As Patient Allergies oxycodone [From PERCOCET] Allergy (Intermediate, Verified 05/17/24 13:44) VOMITING/DIZZINESS tramadol [TRAMADOL] Allergy (Intermediate, Verified 05/17/24 13:44) DIZZINESS Medication List - Last Reconciled 05/17/24 by Fahad Bee PA-C albuterol sulfate 90 mcg/actuation 2 puffs inhalation Q6H PRN 30 days cetirizine (Allergy Relief (cetirizine)) 10 mg PO DAILY 30 days comp.stocking,knee,long,medium As directed cyclobenzaprine 10 mg PO BID 30 days diclofenac sodium 1% (Voltaren Arthritis Pain) 2 grams topical QID 30 days fluticasone propionate 50 mcg/actuation 1 spray intranasal DAILY 30 days gabapentin 100 mg PO BID 30 days ibuprofen 600 mg PO Q6H PRN midodrine 5 mg PO BID 30 days olopatadine 0.2% (Pataday Once Daily Relief) 1 drp ophthalmic (eye) DAILY 30 days pantoprazole 20 mg PO QAM 30 days valacyclovir 1,000 mg PO Q8H 7 days Tobacco use date assessed: 05/17/24 Dental Screening Dental Screen Date: 05/17/24 Did you have a dental visit in the last 12 months?: Yes Did you have a dental problem in the last 6 months where you did not have access to dental care?: No Was dental information given to patient?: Patient has dentist HPI Follow up 2 HPI0 Details Patient is a 59-year-old female here today for follow-up visit. Patient has a past medical history significant for fibromyalgia, migraines, asthma. At last visit we discussed her knee pain to which advised on NSAIDs. X-rays of her knees were without any significant findings. She continues to report kind of globalized atraumatic pain. Has had multiple workups and x-rays on areas of her pain complaints though no significant findings. Her clinical picture seems to be fibromyalgia. Will increase her gabapentin to 300 t.i.d.. Will send for x-ray of the cervical spine as her main complaint today is neck pain that radiates into her head. [facility] Medical History Acid reflux NAFLD (nonalcoholic fatty liver disease) Abdominal pain Surgical History H/O colonoscopy History of breast biopsy History of toe surgery History of hysterectomy History of thumb surgery History of carpal tunnel surgery of right wrist History of carpal tunnel surgery of left wrist Family History Father COPD (chronic obstructive pulmonary disease) Smoker Maternal Aunt Hypertension Sister Breast cancer Mother Hypertension Social History Household Members: Children Housing: Apartment Alcohol intake: never Patient Tobacco Use Status: Never used Tobacco e-Cigarette/Vaping Use: Never Used Second Hand Smoke Exposure: Yes service: No Current occupational status: unemployed 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 Landon Beltre, Khadra Tinajero, Robbi Baker and colleagues, with an educational floridalma from [employer]. Review of Systems Const Denies headache(s) Eyes Denies loss of vision ENT Denies vertigo, Denies dizziness, Denies headache(s) and Denies sore throat Card Denies chest pain, Denies leg edema and Denies lightheadedness Resp Denies cough, Denies hemoptysis and Denies wheezing GI Denies abdominal pain, Denies melena, Denies constipation, Denies diarrhea and Denies vomiting Denies urinary frequency, Denies dysuria and Denies urinary urgency Musc Denies arthralgias, Denies joint swelling, Denies numbness and Denies tingling Neuro Denies Abnormal speech present, Denies behavioral changes, Denies vertigo, Denies dizziness, Denies headache(s), Denies loss of vision, Denies memory loss, Denies numbness and Denies tingling Psych Denies anxiety, Denies behavioral changes, Denies depression, Denies memory loss and Denies panic attacks Gorge/Lymph Denies easy bleeding and Denies easy bruising Aller/Immun Denies wheezing Physical exam (Primary Care) Vital Signs: Last Vital Signs Pulse 69 05/17/24 13:25 BP 122/68 05/17/24 13:25 Pulse Ox 97 05/17/24 13:25 Oxygen Delivery Method Room Air 05/17/24 13:25 BMI result Body Mass Index 27.7 Tobacco/Smoking Status: Tobacco use Status Tobacco use date assessed 05/17/24 05/17/24 13:30 Patient Tobacco Use Status Never used Tobacco 05/17/24 13:25 e-Cigarette/Vaping Use Never Used 05/17/24 13:25 Thrive Assessment: Date of Thrive Assessment Date Thrive assessed 01/05/24 05/17/24 13:25 Const General: healthy appearing, no acute distress, alert and awake Nutritional Appearance: well nourished Orientation/consciousness: oriented to person, oriented to place and oriented to time HENMT Ears: TM's normal bilaterally General nose exam: Normal nasal mucous membranes and turbinates present Eyes Conjunctivae: conjunctivae normal Sclerae: sclerae normal Pupils: Equal, round and reactive pupils present Neck Neck: Yes no lymphadenopathy, No no meningeal signs and Yes no JVD Thyroid: Thyroid normal Carotids: no bruits Neck images: 2 1. PAIN LOCATED IN THE AREA OUTLINED. NO NOTABLE ERYTHEMA, EDEMA OR DEFORMITIES Resp Effort & Inspection: normal respiratory effort and not tachypneic Auscultation: no crackles, no rales, no rhonchi and no wheezes Cardio Rate: regular rate Rhythm: regular rhythm Heart sounds: no murmurs and normal S1 and S2 GI Palpation (GI): Soft to palpation, nontender, no hepatomegaly and no splenomegaly Auscultation: normal bowel sounds Skin General skin exam: no rashes or lesions noted and dry skin Neuro General: oriented to person, oriented to place, oriented to time and No no meningeal signs Cranial nerves: Yes Equal, round and reactive pupils present Speech: No Abnormal speech present Gait exam (Neuro): Normal gait present Motor exam (neuro): no tremor noted Extrem Right upper extremity: full ROM Left upper extremity: full ROM Right lower extremity: full ROM; no edema Left lower extremity: full ROM; no edema Psych Mental Status: mental status grossly normal Speech and movement: Normal speech and movement present Affect: normal affect Attitude: cooperative Thought process: Normal thought process present Assessment and Plan Assessment & Plan (1) Fibromyalgia: Code(s): M79.7 - Fibromyalgia Plan: Patient's signs and symptoms of chronic pain and most consistent with a fibromyalgia diagnosis. Did discuss the treatment for fibromyalgia including medication, mental health therapy and physical activity. Patient does express her understanding and is willing to increase her gabapentin to 300 t.i.d.. She is willing to be refer to counseling and is willing to try to be more physically active as much as possible. (2) Cervical spine pain: Code(s): M54.2 - Cervicalgia Plan: As above (3) Screening for diabetes mellitus (DM): Code(s): Z13.1 - Encounter for screening for diabetes mellitus Orders: Orders 2 Complete Blood Count no Diff 05/17/24 K21.9 - Gastro-esophageal reflux disease without esophagitis XR cervical spine 3V 05/17/24 M54.2 - Cervicalgia Comprehensive [place]. Panel Fast 05/17/24 Z13.1 - Encounter for screening for diabetes mellitus Referrals 2 Counseling Referral F32.A - Depression, unspecified Medications: New 2 gabapentin 300 mg PO TID 30 days 90 caps 2RF M79.7 - Fibromyalgia gabapentin 300 mg PO TID 90 caps 2RF 30 days M79.7 - Fibromyalgia Discontinued 2 valacyclovir Discontinued Reason: Doctor's Order 1,000 mg PO Q8H 7 days 21 tabs 0RF gabapentin Discontinued Reason: Doctor's Order 100 mg PO BID 30 days 60 caps 3RF M79.7 - Fibromyalgia Coding Level of Care Code Est Pt Level 4 (98630) Diagnoses Fibromyalgia M79.7 Cervical spine pain M54.2 Screening for diabetes mellitus (DM) Z13.1
== END 2024-05-17 15:13 | disposition home or self-care (01) ==
PROVIDERS: PCP Physician Assistant; Visit Provider Physician Assistant
DX: M79.7 Fibromyalgia (principal); M54.2 Cervicalgia; Z13.1 Encounter for screening for diabetes mellitus
CPT/HCPCS: 99214

== ENCOUNTER 2024-05-17 14:06 | Outpatient (REF) | payer OTHER, SELFPAY ==
--- NOTE | ~2024-05-17 | XR_ITS ---
EXAMINATION: XR CERVICAL SPINE CLINICAL INFORMATION: Cervicalgia COMPARISON: Cervical spine x-rays of 02/22/2022 TECHNIQUE: 3 views of the cervical spine were obtained. FINDINGS: There is straightening of the cervical spine which is likely related to muscle spasm or positioning of the patient, similar finding was seen on the previous x-ray. There are no prevertebral soft tissue or bony abnormalities demonstrated. No compression fractures or subluxations are identified. Alignment is maintained at the atlanto-axial articulation. The disc spaces are preserved. No endplate changes are seen. The prevertebral soft tissues are normal. Open-mouth view is unremarkable. No evidence of cervical ribs. Visualized lung apices are unremarkable. XR/XR cervical spine 3V IMPRESSION: No evidence of acute compression fracture or subluxation in the cervical spine. Straightening of the cervical spine is likely related to muscle spasm or positioning of the patient. No significant degenerative changes are appreciated in the spine. Electronically signed by: Sergio Valera MD 05/24/2024 07:54 AM EDT
== END 2024-05-17 14:07 | disposition home or self-care (01) ==
LOC: HO.XRAY 14:06
PROVIDERS: PCP Physician Assistant; Visit Provider Physician Assistant
DX: M54.2 Cervicalgia (principal)
CPT/HCPCS: 72040

== ENCOUNTER 2024-05-24 06:44 | Emergency (ER) | payer OTHER, SELFPAY ==
--- NOTE | ~2024-05-24 | CT_ITS ---
EXAMINATION: CT ANGIOGRAM NECK WITH CONTRAST CT ANGIOGRAM BRAIN WITH CONTRAST CLINICAL INFORMATION: Intractable right-sided headache and blurry vision. COMPARISON: None available. TECHNIQUE: Test bolus sequences followed by intravenous administration 70 mL of Omnipaque 350. Helical imaging was performed in the axial plane from the thoracic inlet to the skull vertex. Delayed postcontrast imaging of the head was also performed. The data was processed at the geospatial information technologist workstation for generation of MIP sequences. Angled MIPs and volume rendered reformatted images were also generated at an offline 3D workstation under concurrent supervision. Stenoses are assessed in accordance with NASCET criteria unless otherwise indicated. This CT examination was performed using dose optimization techniques as appropriate, variously including the following: *Automated exposure control *Adjustment of mA and/or kV according to patient size (this includes techniques or standardized protocols for targeted exams where dose is matched to indication/reason for exam; i.e. extremities or head) *Use of iterative reconstruction technique FINDINGS: BRAIN: [Partially empty sella. There is no intracranial hemorrhage, hydrocephalus, extra-axial surface collection, midline shift, or other herniation pattern. Todd to white matter differentiation is diffusely maintained without evidence of an evolved acute territorial infarct. The basilar cisterns are preserved. No significant soft tissue abnormality. No acute osseous abnormality. The paranasal sinuses and the mastoid air cells are well aerated.] CERVICAL SOFT TISSUES AND LUNG APICES: Imaged upper lungs are clear. There is mild cervical spondylosis. Right palatine tonsillar retention cyst. NECK CTA: [There is a classic 3 vessel configuration of the aortic arch. Proximal arch vessels are non-stenotic. The vertebral arteries are codominant. No significant ostial stenosis is visualized on either side. Both vertebral arteries are widely patent throughout their extracranial cervical course. Retropharyngeal course of the right common carotid artery and proximal right internal carotid artery. BRAIN CTA: [There is normal opacification of major intracranial arteries. No focal flow-limiting stenosis nor discrete proximal large artery occlusion. No aneurysm. Arachnoid granulations are associated with narrowing of the lateral transverse sinuses bilaterally. CT/CT head/brain wo IV con IMPRESSION: * No acute intracranial findings. * Partially empty sella and narrowing of the lateral transverse sinuses bilaterally by arachnoid granulations. These findings can be seen in the setting of intracranial CSF hypertension/pseudotumor cerebri which can be clinically correlated. * The craniocervical arterial vasculature is unremarkable. Electronically signed by: Beny Sarkar MD 05/24/2024 09:07 AM EDT RP
--- NOTE | ~2024-05-24 | FL_ITS ---
FLUOROSCOPIC GUIDED LUMBAR PUNCTURE INDICATION: Concern for intracranial hypertension. TECHNIQUE: Risks and benefits and possible complications were discussed with the patient and the consent form was signed. Patient was placed prone on the fluoroscopy table. The back was prepped and draped in routine sterile fashion. Betadine was used as a skin antiseptic. Utilizing fluoroscopic guidance, the L3-4 interlaminar space was accessed with a 22 gauge [place] spinal needle and clear CSF fluid obtained. Opening pressure was 8 cm H2O. 5 cc of fluid was sent for analysis. The needle was removed without immediate complications. Total fluoroscopy time: 0.3 min FL/FL guided lumbar puncture LP IMPRESSION: Successful fluoroscopic guided lumbar puncture. Opening pressure is normal at 8 cm H20. This procedure was performed by Jovany Mcwilliams PA-C and supervised by Sylvester . Electronically signed by: Pancho Alonso MD 05/25/2024 04:20 PM EDT
--- NOTE | ~2024-05-24 | CT_ITS ---
EXAMINATION: CT ANGIOGRAM NECK WITH CONTRAST CT ANGIOGRAM BRAIN WITH CONTRAST CLINICAL INFORMATION: Intractable right-sided headache and blurry vision. COMPARISON: None available. TECHNIQUE: Test bolus sequences followed by intravenous administration 70 mL of Omnipaque 350. Helical imaging was performed in the axial plane from the thoracic inlet to the skull vertex. Delayed postcontrast imaging of the head was also performed. The data was processed at the cath lab technologist workstation for generation of MIP sequences. Angled MIPs and volume rendered reformatted images were also generated at an offline 3D workstation under concurrent supervision. Stenoses are assessed in accordance with NASCET criteria unless otherwise indicated. This CT examination was performed using dose optimization techniques as appropriate, variously including the following: *Automated exposure control *Adjustment of mA and/or kV according to patient size (this includes techniques or standardized protocols for targeted exams where dose is matched to indication/reason for exam; i.e. extremities or head) *Use of iterative reconstruction technique FINDINGS: BRAIN: [Partially empty sella. There is no intracranial hemorrhage, hydrocephalus, extra-axial surface collection, midline shift, or other herniation pattern. Todd to white matter differentiation is diffusely maintained without evidence of an evolved acute territorial infarct. The basilar cisterns are preserved. No significant soft tissue abnormality. No acute osseous abnormality. The paranasal sinuses and the mastoid air cells are well aerated.] CERVICAL SOFT TISSUES AND LUNG APICES: Imaged upper lungs are clear. There is mild cervical spondylosis. Right palatine tonsillar retention cyst. NECK CTA: [There is a classic 3 vessel configuration of the aortic arch. Proximal arch vessels are non-stenotic. The vertebral arteries are codominant. No significant ostial stenosis is visualized on either side. Both vertebral arteries are widely patent throughout their extracranial cervical course. Retropharyngeal course of the right common carotid artery and proximal right internal carotid artery. BRAIN CTA: [There is normal opacification of major intracranial arteries. No focal flow-limiting stenosis nor discrete proximal large artery occlusion. No aneurysm. Arachnoid granulations are associated with narrowing of the lateral transverse sinuses bilaterally. CT/CT angio head neck IMPRESSION: * No acute intracranial findings. * Partially empty sella and narrowing of the lateral transverse sinuses bilaterally by arachnoid granulations. These findings can be seen in the setting of intracranial CSF hypertension/pseudotumor cerebri which can be clinically correlated. * The craniocervical arterial vasculature is unremarkable. Electronically signed by: Beny Sarkar MD 05/24/2024 09:07 AM EDT RP
[2024-05-24 06:48] VITALS: BP 135/91; PULSE 96; RESP 18; TEMP 36.6; O2SAT 98; BMI 27.6
--- NOTE | 2024-05-24 07:02 | ED_ITS ---
HPI - Headache General Chief Complaint: Headache Stated Complaint: Headache/neck pain Time Seen by Provider: 05/24/24 06:49 Source: patient, RN notes reviewed, old records reviewed and systems integrator (english) Mode of arrival: ambulatory Limitations: no limitations History of Present Illness ED Provider: MANUEL HARRISON PA-C HPI Narrative: 59 year old Danish speaking female with pmhx significant for GERD, hepatic steatosis, asthma, orthostatic hypotension, fibromyalgia presents to the ED today for evaluation of right sided neck pain x 2 weeks. Patient reports constant pulsating pain to her right neck, just behind her right ear, now radiating up into the right side of her head. She endorses blurred vision this morning. She denies history of migraines however does occasionally get headaches. States that this feels different. She saw her PCP for this approximately 1 week ago. Cervical spine x-ray was ordered however she has not received the results from this in her symptoms have continued. Denies fever, chills, difficulty ambulating, chest pain, palpitations, shortness of breath, calf pain/swelling. box storage worker utilized throughout visit to communicate with patient. Related Data Previous Rx's ?Medication ?Instructions ?Recorded cetirizine 10 mg capsule (Allergy 10 mg PO DAILY allergy symptoms 30 03/28/24 Relief (cetirizine)) days #30 caps albuterol sulfate 90 mcg/actuation 2 puff inhalation Q6H PRN 05/21/24 aerosol inhaler shortness of breath or wheezing 30 days #8.5 grams cyclobenzaprine 10 mg tablet 10 mg PO BID muscle spasm 30 days 05/21/24 #60 tabs diclofenac sodium 1 % topical gel 2 g topical QID 30 days #100 grams 05/21/24 (Voltaren Arthritis Pain) fluticasone propionate 50 1 spray intranasal DAILY 30 days 05/21/24 mcg/actuation nasal #16 grams spray,suspension gabapentin 300 mg capsule 300 mg PO TID 30 days #90 caps 05/21/24 ibuprofen 600 mg tablet 600 mg PO Q6H PRN fever or pain 05/21/24 #30 tabs midodrine 5 mg tablet 5 mg PO BID 30 days #60 tabs 05/21/24 olopatadine 0.2 % eye drops 1 drp ophthalmic (eye) DAILY 30 05/21/24 (Pataday Once Daily Relief) days #2.5 mL pantoprazole 20 mg tablet,delayed 20 mg PO QAM 30 days #30 tabs 05/21/24 release Allergies Allergy/AdvReac Type Severity Reaction Status Date / Time oxycodone [From PERCOCET] Allergy Intermediate VOMITING/DI Verified 05/24/24 06:49 ZZINESS tramadol [TRAMADOL] Allergy Intermediate DIZZINESS Verified 05/24/24 06:49 Review of Systems 2 Review of Systems: Constitutional: No fever, chills, fatigue, night sweats, weight changes ENT/Mouth: No ear pain, hearing loss, nasal congestion, sinus pain, rhinorrhea, sore throat Eyes: No eye pain, swelling, redness, vision changes, discharge Cardio: No chest pain, palpitations, CALL, orthopnea, peripheral edema Pulm: No SOB, cough, sputum, wheezing, dyspnea, hemoptysis GI: No nausea, vomiting, hematemesis, abdominal pain, diarrhea, constipation, hematochezia, melena : No irregular bleeding, dysuria, frequency, urgency, hesitancy, hematuria, flank pain, urinary flow changes, urinary incontinence or retention MSK: No back pain, joint pain, myalgias, +neck pain Skin: No lesions, rashes Neuro: No weakness, numbness, paresthesias, LOC, dizziness, +headache Psych: No anxiety/panic, depression, SI/HI, AH/VH All other systems reviewed and are negative. [facility] Past Medical History Attestation statement: The following information was validated with the patient. Source: old records reviewed and nursing notes reviewed Medical History Acid reflux NAFLD (nonalcoholic fatty liver disease) Abdominal pain Surgical History H/O colonoscopy History of breast biopsy History of toe surgery History of hysterectomy History of thumb surgery History of carpal tunnel surgery of right wrist History of carpal tunnel surgery of left wrist Family History Family History Father COPD (chronic obstructive pulmonary disease) Smoker Maternal Aunt Hypertension Sister Breast cancer Mother Hypertension Social History Social History Household Members: Children Housing: Apartment Alcohol intake: never Patient Tobacco Use Status: Never used Tobacco e-Cigarette/Vaping Use: Never Used Second Hand Smoke Exposure: Yes service: No Current occupational status: unemployed 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 General: Well appearing, in no acute distress. Skin: Warm, dry, intact. No rashes or lesions. Head: Normocephalic, atraumatic. EENT: Hearing is intact b/l. Conjunctiva clear. Sclera is anicteric. PERRLA. No papilledema. Moist mucous membranes.? Neck: Supple without LAD. FROM. Trachea midline.? Cardiac: Chest wall symmetric. RRR. No MRG. Lungs: Normal respiratory effort without accessory muscle use. CTA bilaterally. Abdomen: Soft, non-tender, non-distended. No rebound tenderness or guarding. Back: No midline spinous or paraspinal tenderness. No step off deformity. Ext: Upper and lower extremities atraumatic, without tenderness, deformity, swelling or erythema. Full ROM throughout. Capillary refill <2 seconds in all extremities. Pulses 2+ equal and bilateral. Neuro: AOx3. Normal speech. CN 2-12 grossly intact. Strength 5/5 intact throughout. Sensation intact to light touch. NV intact distally. Reflexes 2+ bilaterally. Ambulating with steady gait. Psych: Appropriate mood and affect. Responds appropriately to questions. Course Course Course Narrative: 0858 -- CBC without leukocytosis or left shift. No anemia. H&H stable. Chemistry without acute electrolyte abnormality requiring intervention. No DAXA. Random glucose 119. ALT elevated at 42, liver enzymes otherwise WNL. She was tested negative for COVID, flu, RSV. X-ray cervical spine (05/17/24) without evidence of acute compression fracture or subluxation. There is straightening of the cervical spine likely related to muscle spasm or positioning. No significant degenerative changes appreciated. > dry CT and CT angio head and neck pending > patient receiving tylenol and flexeril for pain control 1152 -- CT showing partially empty sella and narrowing of the lateral transverse sinuses by arachnoid granulations. These findings can be seen in the setting of intracranial CSF hypertension/pseudotumor cerebri. The craniocervical arterial vasculature is unremarkable. I did reach out to neurologist, Dr. Rios, who recommends LP to assess for opening pressure given intractable headache. Will reach out to IR. 1548 -- Lumbar puncture performed by Interventional Radiology. Opening pressure WNL at 8 cm H20. CSF sent for Gram stain and culture. Discussed findings with Dr. Rios who recommends treating like migraine REA with out patient follow up. > will trial reglan, benadryl, toradol and re-evaluate. Reevaluation(s) Reevaluation #1: Patient received in sign-out at change of shift pending re-evaluation and disposition. The patient reports that she feels better after her migraine cocktail. I reviewed her lumbar puncture, there was no concerning findings for infectious etiology. She is stable for discharge at this time, she will follow up with her PCP and will be referred to Neurology Time: 18:47 Medications Administered Discontinued Medications Generic Name Dose Route Start Last Admin Trade Name Selene PRN Reason Stop Dose Admin Acetaminophen 975 mg 05/24/24 08:08 05/24/24 08:46 Acetaminophen 325 Mg Tablet PO 05/24/24 08:09 975 mg ONCE ONE Administration Cyclobenzaprine HCl 5 mg 05/24/24 08:08 05/24/24 08:45 Cyclobenzaprine Hcl 5 Mg Tablet PO 05/24/24 08:09 5 mg ONCE ONE Administration Diphenhydramine HCl 25 mg 05/24/24 15:31 05/24/24 16:05 Diphenhydramine Hcl 50 Mg/Ml Vial IVPUSH 05/24/24 15:32 25 mg ONCE ONE Administration Sodium Chloride 1,000 mls @ 999 mls/hr 05/24/24 08:15 05/24/24 14:59 Ns IV 05/24/24 09:15 Infused .Q1H1M CHERRY Infusion Iohexol 100 ml 05/24/24 08:36 05/24/24 08:37 Iohexol 350 Mg/Ml 100 Ml Infus..Btl IV 05/24/24 08:37 70 ml ONCE ONE Administration Ketorolac Tromethamine 15 mg 05/24/24 15:54 05/24/24 15:58 Ketorolac Tromethamine 15 Mg/Ml Vial IVPUSH 05/24/24 15:55 15 mg ONCE ONE Administration Lidocaine HCl 5 ml 05/24/24 12:55 05/24/24 14:13 Lidocaine Hcl 1 % Mpf 5 Ml Vial INFILTRATI 05/24/24 12:56 Not Given ONCE ONE Lidocaine HCl 5 ml 05/24/24 12:55 05/24/24 14:13 Lidocaine Hcl 1 % Mpf 5 Ml Vial INFILTRATI 05/24/24 12:56 Not Given ONCE ONE Metoclopramide HCl 10 mg 05/24/24 15:31 05/24/24 16:05 Metoclopramide Hcl 10 Mg/2 Ml Vial IVPUSH 05/24/24 15:32 10 mg ONCE ONE Administration Medical Decision Making Medical Decision Making [facility] Narrative: 59 year old Danish speaking female with pmhx significant for GERD, hepatic steatosis, asthma, orthostatic hypotension, fibromyalgia presents to the ED today for evaluation of right sided neck pain x 2 weeks. This patient presents with a headache most consistent with migraine REA vs sinusitis.? Differential diagnosis includes migraine vs tension type headache. Although there are no focal neurologic findings, given change from baseline REA, will obtain imaging of head/ neck to rule out dissection/ other intracranial pathology. Neurologic exam without evidence of meningismus. Presentation not consistent with acute intracranial bleed including SAH (lack of risk factors, headache history). Presentation not consistent with acute IT DESKTOP SUPPORT SPECIALIST infection including meningitis or brain abscess. Temporal arteritis unlikely, as is acute angle closure glaucoma given history and physical findings. Plan: pain medication, CT head/brain, CT angio head/neck. Differential Diagnosis Differential Diagnoses: The differential diagnosis associated with the presentation includes As above Admission/Observation Not indicated Consult Healthcare Provider Management of the patient was discussed with: Inventory And Pricing Associate (Neurologist Dr. Rios) Lab Data [facility] Lab Attestation statement: I reviewed the patient's lab results. As above 05/24/24 07:29 05/24/24 07:29 Labs: Lab Results 05/24/24 05/24/24 05/24/24 Range/Units 07:29 14:32 14:32 WBC 5.0 (4.8-10.8) X10*3/uL RBC 4.36 (4.20-5.50) X10*6/uL Hgb 13.3 (12.0-16.0) g/dl Hct 37.6 (37.0-47.0) % MCV 86.2 (80.0-98.0) fL MCH 30.5 (27.0-33.0) pg MCHC 35.4 H (31.0-35.0) g/dl RDW 12.0 (11.0-16.0) % Plt Count 193 (160-400) X10*3/uL MPV 9.7 (9.4-12.3) fL Immature Gran % (Auto) 0.4 (0.0-0.4) % Neut % (Auto) 52.8 (45-73) % Lymph % (Auto) 37.6 (20-40) % Hernando % (Auto) 7.2 (2-11) % Eos % (Auto) 1.6 (0-4) % Baso % (Auto) 0.4 (0-2) % Lymph # (Auto) 1.9 (1.2-4.9) X10*3/uL Hernando # (Auto) 0.4 (0.1-1.2) X10*3/uL Eos # (Auto) 0.1 (0.0-0.4) X10*3/uL Baso # (Auto) 0.0 (0.0-0.2) X10*3/uL Abs Immat Gran (auto) 0.02 (0.00-0.03) X10*3/uL Absolute Neuts (auto) 2.6 (2.0-8.3) x10*3/uL Absolute Nucleated RBC 0.000 (0.0-0.012) X10*3/uL Nucleated RBC % (auto) 0.0 (0.0-0.2) /100WBC Sodium 143 (135-145) mmol/L Potassium 3.5 (3.3-5.1) mmol/L Chloride 107 (96-108) mmol/L Carbon Dioxide 27 (22-29) mmol/L Anion Gap 13 (12-20) BUN 15 (9-16) mg/dL Creatinine 0.74 (0.5-1.4) mg/dL Estim Creat Clear Calc 73.0 Estimated GFR > 60 Random Glucose 119 H (60-115) mg/dL Calcium 9.4 (8.4-10.2) mg/dL Magnesium 1.9 (1.6-2.6) mg/dL Total Bilirubin 0.5 (0.0-1.0) mg/dL AST 27 (5-31) U/L ALT 42 H (0-31) U/L Alkaline Phosphatase 91 (39-117) U/L Total Protein 7.1 (6.5-8.0) g/dL Albumin 4.4 (3.5-5.0) g/dL CSF Tube Number 1 1 CSF Volume ML CSF Appearance CSF Color CSF WBC MM*3 CSF RBC MM*3 CSF Lymphocytes % CSF Appearance (b) CSF Glucose mg/dL CSF Total Protein (15-45) mg/dL Influenza Type A (PCR) NEGATIVE (Negative) Influenza Type B (PCR) NEGATIVE (Negative) RSV RNA Qual (PCR) NEGATIVE (Negative) SARS-CoV-2 RNA (RT-PCR) NEGATIVE (Negative) 05/24/24 05/24/24 05/24/24 Range/Units 14:32 14:32 14:32 WBC (4.8-10.8) X10*3/uL RBC (4.20-5.50) X10*6/uL Hgb (12.0-16.0) g/dl Hct (37.0-47.0) % MCV (80.0-98.0) fL MCH (27.0-33.0) pg MCHC (31.0-35.0) g/dl RDW (11.0-16.0) % Plt Count (160-400) X10*3/uL MPV (9.4-12.3) fL Immature Gran % (Auto) (0.0-0.4) % Neut % (Auto) (45-73) % Lymph % (Auto) (20-40) % Hernando % (Auto) (2-11) % Eos % (Auto) (0-4) % Baso % (Auto) (0-2) % Lymph # (Auto) (1.2-4.9) X10*3/uL Hernando # (Auto) (0.1-1.2) X10*3/uL Eos # (Auto) (0.0-0.4) X10*3/uL Baso # (Auto) (0.0-0.2) X10*3/uL Abs Immat Gran (auto) (0.00-0.03) X10*3/uL Absolute Neuts (auto) (2.0-8.3) x10*3/uL Absolute Nucleated RBC (0.0-0.012) X10*3/uL Nucleated RBC % (auto) (0.0-0.2) /100WBC Sodium (135-145) mmol/L Potassium (3.3-5.1) mmol/L Chloride (96-108) mmol/L Carbon Dioxide (22-29) mmol/L Anion Gap (12-20) BUN (9-16) mg/dL Creatinine (0.5-1.4) mg/dL Estim Creat Clear Calc Estimated GFR Random Glucose (60-115) mg/dL Calcium (8.4-10.2) mg/dL Magnesium (1.6-2.6) mg/dL Total Bilirubin (0.0-1.0) mg/dL AST (5-31) U/L ALT (0-31) U/L Alkaline Phosphatase (39-117) U/L Total Protein (6.5-8.0) g/dL Albumin (3.5-5.0) g/dL CSF Tube Number 3 CSF Volume 2.0 0.5 ML CSF Appearance CLEAR CLEAR CSF Color COLORLESS CSF WBC MM*3 CSF RBC MM*3 CSF Lymphocytes % CSF Appearance (b) CSF Glucose mg/dL CSF Total Protein (15-45) mg/dL Influenza Type A (PCR) (Negative) Influenza Type B (PCR) (Negative) RSV RNA Qual (PCR) (Negative) SARS-CoV-2 RNA (RT-PCR) (Negative) 05/24/24 05/24/24 05/24/24 Range/Units 14:32 14:32 14:32 WBC (4.8-10.8) X10*3/uL RBC (4.20-5.50) X10*6/uL Hgb (12.0-16.0) g/dl Hct (37.0-47.0) % MCV (80.0-98.0) fL MCH (27.0-33.0) pg MCHC (31.0-35.0) g/dl RDW (11.0-16.0) % Plt Count (160-400) X10*3/uL MPV (9.4-12.3) fL Immature Gran % (Auto) (0.0-0.4) % Neut % (Auto) (45-73) % Lymph % (Auto) (20-40) % Hernando % (Auto) (2-11) % Eos % (Auto) (0-4) % Baso % (Auto) (0-2) % Lymph # (Auto) (1.2-4.9) X10*3/uL Hernando # (Auto) (0.1-1.2) X10*3/uL Eos # (Auto) (0.0-0.4) X10*3/uL Baso # (Auto) (0.0-0.2) X10*3/uL Abs Immat Gran (auto) (0.00-0.03) X10*3/uL Absolute Neuts (auto) (2.0-8.3) x10*3/uL Absolute Nucleated RBC (0.0-0.012) X10*3/uL Nucleated RBC % (auto) (0.0-0.2) /100WBC Sodium (135-145) mmol/L Potassium (3.3-5.1) mmol/L Chloride (96-108) mmol/L Carbon Dioxide (22-29) mmol/L Anion Gap (12-20) BUN (9-16) mg/dL Creatinine (0.5-1.4) mg/dL Estim Creat Clear Calc Estimated GFR Random Glucose (60-115) mg/dL Calcium (8.4-10.2) mg/dL Magnesium (1.6-2.6) mg/dL Total Bilirubin (0.0-1.0) mg/dL AST (5-31) U/L ALT (0-31) U/L Alkaline Phosphatase (39-117) U/L Total Protein (6.5-8.0) g/dL Albumin (3.5-5.0) g/dL CSF Tube Number CSF Volume ML CSF Appearance CSF Color COLORLESS CSF WBC 1 2 MM*3 CSF RBC 3 3 MM*3 CSF Lymphocytes 100 % CSF Appearance (b) CSF Glucose mg/dL CSF Total Protein (15-45) mg/dL Influenza Type A (PCR) (Negative) Influenza Type B (PCR) (Negative) RSV RNA Qual (PCR) (Negative) SARS-CoV-2 RNA (RT-PCR) (Negative) 05/24/24 Range/Units 14:32 WBC (4.8-10.8) X10*3/uL RBC (4.20-5.50) X10*6/uL Hgb (12.0-16.0) g/dl Hct (37.0-47.0) % MCV (80.0-98.0) fL MCH (27.0-33.0) pg MCHC (31.0-35.0) g/dl RDW (11.0-16.0) % Plt Count (160-400) X10*3/uL MPV (9.4-12.3) fL Immature Gran % (Auto) (0.0-0.4) % Neut % (Auto) (45-73) % Lymph % (Auto) (20-40) % Hernando % (Auto) (2-11) % Eos % (Auto) (0-4) % Baso % (Auto) (0-2) % Lymph # (Auto) (1.2-4.9) X10*3/uL Hernando # (Auto) (0.1-1.2) X10*3/uL Eos # (Auto) (0.0-0.4) X10*3/uL Baso # (Auto) (0.0-0.2) X10*3/uL Abs Immat Gran (auto) (0.00-0.03) X10*3/uL Absolute Neuts (auto) (2.0-8.3) x10*3/uL Absolute Nucleated RBC (0.0-0.012) X10*3/uL Nucleated RBC % (auto) (0.0-0.2) /100WBC Sodium (135-145) mmol/L Potassium (3.3-5.1) mmol/L Chloride (96-108) mmol/L Carbon Dioxide (22-29) mmol/L Anion Gap (12-20) BUN (9-16) mg/dL Creatinine (0.5-1.4) mg/dL Estim Creat Clear Calc Estimated GFR Random Glucose (60-115) mg/dL Calcium (8.4-10.2) mg/dL Magnesium (1.6-2.6) mg/dL Total Bilirubin (0.0-1.0) mg/dL AST (5-31) U/L ALT (0-31) U/L Alkaline Phosphatase (39-117) U/L Total Protein (6.5-8.0) g/dL Albumin (3.5-5.0) g/dL CSF Tube Number CSF Volume ML CSF Appearance CSF Color CSF WBC MM*3 CSF RBC MM*3 CSF Lymphocytes 100 % CSF Appearance (b) Clear, Colorless CSF Glucose 57 mg/dL CSF Total Protein 52.8 H (15-45) mg/dL Influenza Type A (PCR) (Negative) Influenza Type B (PCR) (Negative) RSV RNA Qual (PCR) (Negative) SARS-CoV-2 RNA (RT-PCR) (Negative) Independent Interpretation I performed an independent interpretation of an: CT Scan Interpretation: CT head/brain without intracranial bleed, agree with radiologist's interpretation. CT angio head/ neck without noted ischemia, agree with radiologist's interpretation. Radiology Impression Discussion of test interpretation with radiology: I have reviewed the radiologist's reading. Radiologist Impression: EXAMINATION: CT ANGIOGRAM NECK WITH CONTRAST CT ANGIOGRAM BRAIN WITH CONTRAST CLINICAL INFORMATION: Intractable right-sided headache and blurry vision. COMPARISON: None available. TECHNIQUE: Test bolus sequences followed by intravenous administration 70 mL of Omnipaque 350. Helical imaging was performed in the axial plane from the thoracic inlet to the skull vertex. Delayed postcontrast imaging of the head was also performed. The data was processed at the certified ophthalmic technologist workstation for generation of MIP sequences. Angled MIPs and volume rendered reformatted images were also generated at an offline 3D workstation under concurrent supervision. Stenoses are assessed in accordance with NASCET criteria unless otherwise indicated. This CT examination was performed using dose optimization techniques as appropriate, variously including the following: *Automated exposure control *Adjustment of mA and/or kV according to patient size (this includes techniques or standardized protocols for targeted exams where dose is matched to indication/reason for exam; i.e. extremities or head) *Use of iterative reconstruction technique FINDINGS: BRAIN: [Partially empty sella. There is no intracranial hemorrhage, hydrocephalus, extra-axial surface collection, midline shift, or other herniation pattern. Todd to white matter differentiation is diffusely maintained without evidence of an evolved acute territorial infarct. The basilar cisterns are preserved. No significant soft tissue abnormality. No acute osseous abnormality. The paranasal sinuses and the mastoid air cells are well aerated.] CERVICAL SOFT TISSUES AND LUNG APICES: Imaged upper lungs are clear. There is mild cervical spondylosis. Right palatine tonsillar retention cyst. NECK CTA: [There is a classic 3 vessel configuration of the aortic arch. Proximal arch vessels are non-stenotic. The vertebral arteries are codominant. No significant ostial stenosis is visualized on either side. Both vertebral arteries are widely patent throughout their extracranial cervical course. Retropharyngeal course of the right common carotid artery and proximal right internal carotid artery. BRAIN CTA: [There is normal opacification of major intracranial arteries. No focal flow-limiting stenosis nor discrete proximal large artery occlusion. No aneurysm. Arachnoid granulations are associated with narrowing of the lateral transverse sinuses bilaterally. CT/CT angio head neck IMPRESSION: * No acute intracranial findings. * Partially empty sella and narrowing of the lateral transverse sinuses bilaterally by arachnoid granulations. These findings can be seen in the setting of intracranial CSF hypertension/pseudotumor cerebri which can be clinically correlated. * The craniocervical arterial vasculature is unremarkable. Electronically signed by: Beny Sarkar MD 05/24/2024 09:07 AM EDT External Record Review External record reviewed: Inpatient record Prescription Management I considered prescription management with: Pain Medication Social Determinants Patient?s care significantly limited by Social Determinants of Health including: Other Social Determinant of Health Critical Care Time Critical Care Time Critical Care Time: Yes Total Critical Care Time: 35 Attestation: Critical care time in the amount of 35 minutes has been provided to the patient in terms of direct patient care, frequent reevaluation, consultation with neurology, review and interpretation of medical data and results, and management of potentially life-threatening conditions. This is all outside of any medical procedures. Discharge Plan Discharge Clinical Impression: Migraine Qualifiers: Migraine type: without aura Status migrainosus presence: without status migrainosus Intractability: not intractable Qualified Code(s): G43.009 - Migraine without aura, not intractable, without status migrainosus Patient Disposition: Home, Self-Care Instructions: Migraine Headache (ED), Lumbar Puncture (ED) Additional Instructions: You have been evaluated in the Emergency Department today for headache. Your evaluation did not show evidence of medical conditions requiring emergent intervention at this time, and your pain improved with medication in the ED. Sometimes it is difficult to explain the cause of headache but the negative workup today is reassuring. I want you to take the following 3 medications together every 6 hours as needed for headache, nausea or vomiting. ? - Reglan 10 mg - Benadryl 50 mg - Excedrin migraine After you take these medications, lie down in a dark quiet room and try to fall asleep. ?These medications will make you sleepy, do not drive or work after taking these medications. Please follow up with your primary care physician within two days. You have also been provided wtih a referral to a neurologist. Please call tem to establish care. They will not call you. Return to the Emergency Department if you experience worsening or uncontrolled pain, vision changes, recurrent vomiting, difficulty with normal activities, abnormal behavior, difficulty walking, numbness, weakness, or any other concerning symptoms. Prescriptions: No Action Allergy Relief (cetirizine) 10 mg capsule 10 mg PO DAILY 30 Days Qty: 30 6RF albuterol sulfate 90 mcg/actuation HFA aerosol inhaler 2 puff inhalation Q6H PRN (Reason: shortness of breath or wheezing) 30 Days Qty: 8.5 3RF cyclobenzaprine 10 mg tablet 10 mg PO BID 30 Days Qty: 60 3RF diclofenac sodium [Voltaren Arthritis Pain] 1 % gel 2 g topical QID 30 Days Qty: 100 3RF Rx Instructions: apply to single elbow, wrist or hand; for hand includes palm/fingers/back of hand fluticasone propionate 50 mcg/actuation spray,suspension 1 spray intranasal DAILY 30 Days Qty: 16 3RF Rx Instructions: administer into each nostril gabapentin 300 mg capsule 300 mg PO TID 30 Days Qty: 90 3RF ibuprofen 600 mg tablet 600 mg PO Q6H PRN (Reason: fever or pain) Qty: 30 0RF olopatadine [Pataday Once Daily Relief] 0.2 % drops 1 drp ophthalmic (eye) DAILY 30 Days Qty: 2.5 3RF midodrine 5 mg tablet 5 mg PO BID 30 Days Qty: 60 3RF Rx Instructions: do not give last dose of day after 6PM or within 4 hrs of bedtime pantoprazole 20 mg tablet,delayed release (DR/EC) 20 mg PO QAM 30 Days Qty: 30 6RF [place] [facility] [place] Group] Fahad Bee PA-C [Primary Care Provider] - Interventions: ED Discharge Assessment Last Done: 05/24/24 19:26 Discharge Date/Time: 05/24/24 19:26 Print Language: Danish
[2024-05-24 07:34] LABS: Basophils Percent Auto 0.4 % (0-2); Eosinophils Absolute Auto 0.1 X10*3/uL (0.0-0.4); Eosinophils Percent Auto 1.6 % (0-4); Hematocrit 37.6 % (37.0-47.0); Hemoglobin 13.3 g/dl (12.0-16.0); Imm Gran Abs Auto 0.02 X10*3/uL (0.00-0.03); Imm Gran Pct Auto 0.4 % (0.0-0.4); Lymphocytes Absolute Auto 1.9 X10*3/uL (1.2-4.9); Lymphocytes Percent Auto 37.6 % (20-40); MANUAL DIFF FLAG NO; Mean Corpuscular HGB Conc 35.4 g/dl (31.0-35.0); Mean Corpuscular Hemoglobin 30.5 pg (27.0-33.0); Mean Corpuscular Volume 86.2 fL (80.0-98.0); Mean Platelet Volume 9.7 fL (9.4-12.3); Monocytes Absolute Auto 0.4 X10*3/uL (0.1-1.2); Monocytes Percent Auto 7.2 % (2-11); Neutrophils Absolute Auto 2.6 x10*3/uL (2.0-8.3); Neutrophils Percent Auto 52.8 % (45-73); Platelet Count 193 X10*3/uL (160-400); Red Blood Count 4.36 X10*6/uL (4.20-5.50)
[2024-05-24 07:49] LABS: Alanine Aminotransferase 42 U/L (0-31); Albumin Level 4.4 g/dL (3.5-5.0); Alkaline Phosphatase 91 U/L (39-117); Anion Gap 13 (12-20); Aspartate Amino Transferase 27 U/L (5-31); Bilirubin Total 0.5 mg/dL (0.0-1.0); Blood Urea Nitrogen 15 mg/dL (9-16); Calcium 9.4 mg/dL (8.4-10.2); Carbon Dioxide 27 mmol/L (22-29); Chloride 107 mmol/L (96-108); Estimated Glomerular Filt Rate > 60; Glucose Random 119 mg/dL (60-115); Magnesium 1.9 mg/dL (1.6-2.6); Potassium 3.5 mmol/L (3.3-5.1); Sodium 143 mmol/L (135-145); Total Protein 7.1 g/dL (6.5-8.0)
[2024-05-24 08:15] LABS: Influenza A PCR NEGATIVE (Negative); Influenza B PCR NEGATIVE (Negative); Resp Syncy Virus RNA Qual PCR NEGATIVE (Negative); SARS COV2 PCR INHOUSE NEGATIVE (Negative)
[2024-05-24] MEDS: iohexoL 350 MG/ML 100 ML INFUS..BTL IV (08:37)
[2024-05-24] MEDS: Cyclobenzaprine HCl 5 MG TABLET PO (08:45)
[2024-05-24] MEDS: Acetaminophen 325 MG TABLET 975 MG PO (08:46)
[2024-05-24] MEDS: 0.9 % Sodium Chloride 1,000 ML 999 ML IV (08:46)
[2024-05-24 08:54] VITALS: BP 165/68; PULSE 65; RESP 16; TEMP 36.8; O2SAT 100
--- NOTE | 2024-05-24 14:21 | PC.NURSE ---
pt to radiology/IR for LP at appprox 1400, skin wpd, nad
[2024-05-24 14:47] VITALS: BP 136/80; PULSE 63; RESP 16; TEMP 37.2; O2SAT 100
--- NOTE | 2024-05-24 14:47 | PM.PROC ---
Brief Operative Note Date of procedure: 05/24/24 Pre-op diagnosis: Concern for ICH Post-op diagnosis: same Procedure: FL lumbar puncture L3-L4, Opening pressure 8 cm H20. 5 cc clear csf removed for requested labs. Anesthesia: local
[2024-05-24] MEDS: Ketorolac Tromethamine 15 MG/ML VIAL IVPUSH (15:58)
[2024-05-24] MEDS: Metoclopramide HCl 10 MG/2 ML VIAL IVPUSH (16:05)
[2024-05-24] MEDS: diphenhydrAMINE HCL 50 MG/ML VIAL 25 MG IVPUSH (16:05)
[2024-05-24 16:06] VITALS: BP 141/75; PULSE 65; RESP 19; O2SAT 98
[2024-05-24 16:21] LABS: Glucose CSF 57 mg/dL; Total Protein CSF 52.8 mg/dL (15-45)
[2024-05-24 16:31] LABS: CSF Appearance Clear, Colorless; CSF Tube # 1
[2024-05-24 17:16] LABS: Appearance CSF CLEAR; CSF Tube # 1; Color CSF COLORLESS; White Blood Cell CSF 1 MM*3
[2024-05-24 17:17] LABS: Appearance CSF CLEAR; CSF Tube # 3; CSF Volume 0.5 ML; Color CSF COLORLESS; Lymphocytes CSF 100 %; Red Blood Cell CSF 3 MM*3
[2024-05-24 17:18] LABS: Lymphocytes CSF 100 %; Red Blood Cell CSF 3 MM*3; White Blood Cell CSF 2 MM*3
[2024-05-24 18:28] VITALS: BP 117/65; PULSE 78; RESP 16; TEMP 37; O2SAT 97
[2024-05-24 19:26] VITALS: BP 117/65; PULSE 78; RESP 16; TEMP 37; O2SAT 97
== END 2024-05-24 19:26 | disposition home or self-care (01) ==
PROVIDERS: Physician Assistant Medical; Emergency Provider Emergency Medicine; PCP Physician Assistant
DX: G43.009 Migraine without aura, not intractable, without status migrainosus (principal); M54.2 Cervicalgia; Z03.818 Encounter for observation for suspected exposure to other biological agents ruled out; Z79.899 Other long term (current) drug therapy
CPT/HCPCS: 0241U; 62328; 70450; 70496; 70498; 80053; 82945; 83735; 84157; 85025; 87015; 87070; 87205; 89051; 96361; 96374; 96375; 99284; 99285; J1200; J1885; J2765; Q9967

== ENCOUNTER → 2024-05-24 07:14 | Outpatient (BNV) | payer OTHER, SELFPAY | PROVIDERS: Emergency Provider Emergency Medicine; PCP Physician Assistant; Visit Provider Physician Assistant Surgical | DX: G93.2 Benign intracranial hypertension (principal) | CPT/HCPCS: 62328 ==

== ENCOUNTER 2024-05-31 14:34 | Outpatient (AMB) | payer OTHER, SELFPAY ==
--- NOTE | 2024-05-31 15:01 | A.OFFVIS_ITS ---
Vital Signs 05/31/24 15:09 Height 5 ft 1 in Weight 146 lb BMI 27.6 Intake Visit Reasons: New problem RT knee pain Intake Note: Pili is a 59 year old female who presents today for a new problem visit with complaints of right knee pain. She was seen in December with her PCP who ordered Physical therapy. Patient reports at that time she was having bilateral knee pain and swelling on the right knee but this has now subsided. Patient states she continues to have clicking and popping that occurs on and off . She denies pain or discomfort. She denies prior injuries or surgeries to bilateral knees. Allergies oxycodone [From PERCOCET] Allergy (Intermediate, Verified 05/31/24 15:09) VOMITING/DIZZINESS tramadol [TRAMADOL] Allergy (Intermediate, Verified 05/31/24 15:09) DIZZINESS HPI HPI New problem RT knee pain: Details: Pili is a 59 year old female who presents today for a new problem visit with complaints of right knee pain. She was seen in December with her PCP who ordered Physical therapy. Patient reports at that time she was having bilateral knee pain and swelling on the right knee but this has now subsided. Patient states she continues to have clicking and popping that occurs on and off . She denies pain or discomfort. She denies prior injuries or surgeries to bilateral knees. [facility] Medical History Acid reflux NAFLD (nonalcoholic fatty liver disease) Abdominal pain Surgical History H/O colonoscopy History of breast biopsy History of toe surgery History of hysterectomy History of thumb surgery History of carpal tunnel surgery of right wrist History of carpal tunnel surgery of left wrist Family History Father COPD (chronic obstructive pulmonary disease) Smoker Maternal Aunt Hypertension Sister Breast cancer Mother Hypertension Social History Household Members: Children Housing: Apartment Alcohol intake: never Patient Tobacco Use Status: Never used Tobacco e-Cigarette/Vaping Use: Never Used Second Hand Smoke Exposure: Yes service: No Current occupational status: unemployed 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 nl radiographic exam of bilateral knees Assessment & Plan Assessment & Plan (1) Bilateral knee swelling: Code(s): M25.461 - Effusion, right knee; M25.462 - Effusion, left knee Category: Medical Plan: currently has no pain and nl exam. Coding Level of Care Code Est Pt Level 3 (45424) Diagnoses Bilateral knee swelling M25.461; M25.462
[2024-05-31 15:09] VITALS: BMI 27.6
== END 2024-05-31 15:50 | disposition home or self-care (01) ==
PROVIDERS: PCP Physician Assistant; Visit Provider Orthopaedic Surgery
DX: M25.461 Effusion, right knee (principal); M25.462 Effusion, left knee

== ENCOUNTER → 2024-05-31 14:34 | Outpatient (BNVA) | payer OTHER, SELFPAY | PROVIDERS: PCP Physician Assistant; Visit Provider Orthopaedic Surgery | DX: M25.461 Effusion, right knee (principal); M25.462 Effusion, left knee | CPT/HCPCS: 99212 ==

== ENCOUNTER 2024-07-26 15:21 | Outpatient (REF) | payer OTHER, SELFPAY ==
[2024-07-26 16:42] LABS: Erythrocyte Sedimentation Rate 13 MM/HR (0-20)
[2024-07-27 08:31] LABS: HIV AB/AG Nonreactive (Nonreactive); HIV Num 1 0.05 S/CO (0.00-0.99)
[2024-07-28 06:29] LABS: Lyme Abs Screen <0.90 index
[2024-08-01 20:23] LABS: Treponema pallidum Ab FTA ABS Nonreactive (Nonreactive)
== END 2024-07-26 15:22 | disposition home or self-care (01) ==
LOC: HO.LAB 15:21
PROVIDERS: PCP Physician Assistant; Visit Provider Psychiatry & Neurology Neurology
DX: G43.009 Migraine without aura, not intractable, without status migrainosus (principal)
CPT/HCPCS: 36415; 85652; 86617; 86618; 86780; 87389

== ENCOUNTER 2024-08-24 08:20 | Emergency (ER) | payer OTHER, SELFPAY ==
--- NOTE | ~2024-08-24 | CT_ITS ---
EXAMINATION: CT ABDOMEN AND PELVIS WITHOUT CONTRAST CLINICAL INFORMATION: Epigastric pain. Low back pain. COMPARISON: CT dated April 17, 2021. TECHNIQUE: Multidetector volumetric imaging was performed from the superior aspect of the liver through the pubic symphysis. Sagittal and coronal reformatted images were obtained on the technologist's workstation. This CT examination was performed using dose optimization techniques as appropriate, variously including the following: *Automated exposure control *Adjustment of mA and/or kV according to patient size (this includes techniques or standardized protocols for targeted exams where dose is matched to indication/reason for exam; i.e. extremities or head) *Use of iterative reconstruction technique DLP: 449 mGy-cm FINDINGS: Inadequate evaluation of the intra-abdominal organs and vascular structures due to lack of IV contrast. LUNG BASES: Pulmonary mosaic pattern. LIVER, GALLBLADDER, AND BILIARY TREE: Liver measures 16 cm. There is heterogeneous decreased attenuation more conspicuous in the caudate lobe and adjacent to the falciform ligament. No intrahepatic biliary ductal dilatation. No pericholecystic fluid collection or gallbladder wall thickening. No extrahepatic biliary ductal dilatation. PANCREAS: No peripancreatic fluid collections. No main pancreatic ductal dilatation. SPLEEN: 9 cm. ADRENAL GLANDS: No nodular lesions. KIDNEYS AND URETERS: No hydronephrosis or nephrolithiasis. BLADDER: Fluid-filled. GASTROINTESTINAL TRACT: Appendix is normal. Diverticula in the left hemicolon. No pericolonic edema pattern. Abundant stool. No intestinal obstruction pattern. No pneumatosis intestinalis. No ascites. No pneumoperitoneum. ABDOMINAL WALL: Small fat-containing umbilical hernia and diastases abdominal rectus muscles in the umbilical region. LYMPH NODES: No lymphadenopathy. VASCULAR: Calcified plaques in the origin of the mesenteric arteries and main renal arteries. Calcified plaques in the distal abdominal aorta and iliac arteries. No aneurysm, abdominal aorta. 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 PELVIC VISCERA: Absent uterus. Probable small left adnexa. OSSEOUS STRUCTURES: No acute fracture or gross listhesis. Osteopenia versus osteoporosis. No lytic or blastic lesions. CT/CT abdomen pelvis wo IV con IMPRESSION: No hydronephrosis or nephrolithiasis. Diverticular disease, left hemicolon. Hepatomegaly and steatosis. Small airway disease versus small pulmonary artery disease. Fleischner guidelines were followed. Electronically signed by: Fritz Huertas MD 08/24/2024 01:19 PM [facility]
[2024-08-24 08:41] VITALS: BP 149/83; PULSE 93; RESP 18; TEMP 36.7; O2SAT 98; BMI 26.4
[2024-08-24 08:56] LABS: MANUAL DIFF FLAG NO
[2024-08-24 08:57] LABS: Basophils Percent Auto 0.3 % (0-2); Eosinophils Absolute Auto 0.1 X10*3/uL (0.0-0.4); Eosinophils Percent Auto 0.9 % (0-4); Hematocrit 37.5 % (37.0-47.0); Hemoglobin 13.2 g/dl (12.0-16.0); Imm Gran Abs Auto 0.02 X10*3/uL (0.00-0.03); Imm Gran Pct Auto 0.3 % (0.0-0.4); Lymphocytes Absolute Auto 1.9 X10*3/uL (1.2-4.9); Lymphocytes Percent Auto 32.8 % (20-40); Mean Corpuscular HGB Conc 35.2 g/dl (31.0-35.0); Mean Corpuscular Hemoglobin 30.1 pg (27.0-33.0); Mean Corpuscular Volume 85.4 fL (80.0-98.0); Mean Platelet Volume 10.1 fL (9.4-12.3); Monocytes Absolute Auto 0.4 X10*3/uL (0.1-1.2); Monocytes Percent Auto 7.5 % (2-11); Neutrophils Absolute Auto 3.4 x10*3/uL (2.0-8.3); Neutrophils Percent Auto 58.2 % (45-73); Platelet Count 214 X10*3/uL (160-400); Red Blood Count 4.39 X10*6/uL (4.20-5.50); Red Cell Distribution Width 12.2 % (11.0-16.0); White Blood Count 5.8 X10*3/uL (4.8-10.8)
[2024-08-24 09:08] LABS: Appearance Urine Clear; Color Urine Yellow; Glucose Urine UA Negative (Negative); Leukocyte Esterase Urine Negative (Negative); Nitrite Urine Negative (Negative); Urine Blood Negative (Negative); Urine Ketones Negative (Negative); Urine Protein Negative (Neg-Trace)
[2024-08-24 09:12] LABS: Alanine Aminotransferase 35 U/L (0-31); Albumin Level 4.3 g/dL (3.5-5.0); Alkaline Phosphatase 76 U/L (39-117); Anion Gap 10 (12-20); Aspartate Amino Transferase 26 U/L (5-31); Bilirubin Total 0.5 mg/dL (0.0-1.0); Blood Urea Nitrogen 13 mg/dL (9-16); Calcium 9.2 mg/dL (8.4-10.2); Carbon Dioxide 27 mmol/L (22-29); Chloride 110 mmol/L (96-108); Creatinine Clr Calc Pharmacy 71.6; Estimated Glomerular Filt Rate > 60; Glucose Random 101 mg/dL (60-115); Potassium 3.5 mmol/L (3.3-5.1); Sodium 143 mmol/L (135-145); Total Protein 7.4 g/dL (6.5-8.0)
--- NOTE | 2024-08-24 10:46 | ED_ITS ---
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 Pain does not radiate. She reports symptoms are primarily present on waking in the morning and improve throughout the day. She has not trialed any [id number] medications for her symptoms. Denies any history of similar. Denies etoh consumption. She denies any pain or nausea at present. Denies constipation and states that she has had a bowel movement every morning for the past 2 weeks. Last bowel movement was this morning and was normal for her. Denies any melena or hematochezia. Denies joan blood. Denies rectal pain. Denies fever, chills, flank pain, diarrhea, dysuria, hematuria. Related Data Home Medications ?Medication ?Instructions ?Recorded ?Confirmed topiramate 25 mg tablet 25 mg PO DAILY 08/30/24 Previous Rx's ?Medication ?Instructions ?Recorded cetirizine 10 mg capsule (Allergy 10 mg PO DAILY allergy symptoms 30 03/28/24 Relief (cetirizine)) days #30 caps albuterol sulfate 90 mcg/actuation 2 puff inhalation Q6H PRN 05/21/24 aerosol inhaler shortness of breath or wheezing 30 days #8.5 grams cyclobenzaprine 10 mg tablet 10 mg PO BID muscle spasm 30 days 05/21/24 #60 tabs diclofenac sodium 1 % topical gel 2 g topical QID 30 days #100 grams 05/21/24 (Voltaren Arthritis Pain) fluticasone propionate 50 1 spray intranasal DAILY 30 days 05/21/24 mcg/actuation nasal #16 grams spray,suspension gabapentin 300 mg capsule 300 mg PO TID 30 days #90 caps 05/21/24 midodrine 5 mg tablet 5 mg PO BID 30 days #60 tabs 05/21/24 olopatadine 0.2 % eye drops 1 drp ophthalmic (eye) DAILY 30 05/21/24 (Pataday Once Daily Relief) days #2.5 mL docusate sodium 50 mg capsule 50 mg PO DAILY #10 caps 08/24/24 polyethylene glycol 3350 17 gram 17 g PO DAILY 4 days #14 ea 08/24/24 oral powder packet (Miralax) esomeprazole magnesium 40 mg 40 mg PO DAILY #30 caps 08/30/24 capsule,delayed release (Nexium) Allergies Allergy/AdvReac Type Severity Reaction Status Date / Time oxycodone [From PERCOCET] Allergy Intermediate VOMITING/DI Verified 08/30/24 13:51 ZZINESS tramadol [TRAMADOL] Allergy Intermediate DIZZINESS Verified 08/30/24 13:51 Review of Systems Review of Systems Yes all other systems are reviewed and are negative PMFSH Past Medical History Attestation statement: The following information was validated with the patient. Source: old records reviewed and nursing notes reviewed Medical History Acid reflux NAFLD (nonalcoholic fatty liver disease) Abdominal pain Surgical History H/O colonoscopy History of breast biopsy History of toe surgery History of hysterectomy History of thumb surgery History of carpal tunnel surgery of right wrist History of carpal tunnel surgery of left wrist Family History Family History Father COPD (chronic obstructive pulmonary disease) Smoker Maternal Aunt Hypertension Sister Breast cancer Mother Hypertension Social History Social History Household Members: Children Housing: Apartment Alcohol intake: never Patient Tobacco Use Status: Never used Tobacco e-Cigarette/Vaping Use: Never Used Second Hand Smoke Exposure: Yes service: No Current occupational status: unemployed 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 Skin: Warm, dry, intact. No rashes or lesions. Head: Normocephalic, atraumatic. EENT: Hearing is intact b/l. Conjunctiva clear. PERRLA. EOM intact. Moist mucous membranes.? Neck: Supple without LAD Cardiac: Chest wall symmetric. RRR Lungs: Normal respiratory effort without accessory muscle use. CTA bilaterally. Abdomen: Soft, non-tender, non-distended. No rebound tenderness or guarding. Positive BS x4. negative deal sign. no cvat. Back: No midline spinous or paraspinal tenderness. No step off deformity. no tenderness specifically over sacrum. no overlying skin changes. Ext: Upper and lower extremities atraumatic, without tenderness, deformity, swelling or erythema. Full ROM throughout. Neuro: AOx3. Normal speech. Ambulating with steady gait. Psych: Appropriate mood and affect. Responds appropriately to questions. Course Course Course Narrative: CBC without leukocytosis or left shift. No anemia. h&h stable. Chemistry without acute electrolyte abnormality requiring intervention. No DAXA. Liver function at baseline. Urine negative for infection or blood. CT AP showing moderate stool in colon, otherwise unremarkable. No evidence of pancreatitis, obstruction. Will send home with miralax and colace along with sucralfate for epigastric discomfort. She tells me she has a follow up with her GI specialist in a few days. Advised to keep this appointment.?Patient has remained stable throughout ED visit today. Discussed worrisome signs and symptoms and when to return to the ED. All questions answered at this time. Patient is agreeable with disposition and stable for discharge. Medical Decision Making Medical Decision Making [facility] Narrative: 59-year-old female with past medical history significant for GERD, NAFLD, and fibromyalgia presents to the ED today for evaluation of epigastric abdominal pain and nausea without vomiting x3-4 days. She is hypertensive, her vitals are otherwise wnl. she is nontoxic appearing and in NAD. On exam, abdomen is soft, non-tender, non-distended. No rebound tenderness or guarding. Positive BS x4. negative deal sign. no cvat. Differential diagnosis includes biliary colic, renal colic, nephrolithiasis, gastroenteritis, gastritis, gerd. Abdominal exam without peritoneal signs. No evidence of acute abdomen at this time. Well appearing. Moderate suspicion for acute hepatobiliary disease (including acute cholecystitis). Less likely to represent acute pancreatitis, PUD (including perforation), acute infectious processes (pneumonia, hepatitis, pyelonephritis), atypical appendicitis, vascular catastrophe, bowel obstruction or viscus perforation. Presentation not consistent with other acute, emergent causes of abdominal pain at this time. Plan: labs, UA, pain control, CT AP, serial reassessment Differential Diagnosis Differential Diagnoses: The differential diagnosis associated with the presentation includes as above. Admission/Observation Not indicated. Lab Data MDM Lab Attestation statement: I reviewed the patient's lab results. as above. 08/24/24 08:52 08/24/24 08:52 Labs: Lab Results 08/24/24 08/24/24 Range/Units 08:52 08:57 WBC 5.8 (4.8-10.8) X10*3/uL RBC 4.39 (4.20-5.50) X10*6/uL Hgb 13.2 (12.0-16.0) g/dl Hct 37.5 (37.0-47.0) % MCV 85.4 (80.0-98.0) fL MCH 30.1 (27.0-33.0) pg MCHC 35.2 H (31.0-35.0) g/dl RDW 12.2 (11.0-16.0) % Plt Count 214 (160-400) X10*3/uL MPV 10.1 (9.4-12.3) fL Immature Gran % (Auto) 0.3 (0.0-0.4) % Neut % (Auto) 58.2 (45-73) % Lymph % (Auto) 32.8 (20-40) % [place]anan % (Auto) 7.5 (2-11) % Eos % (Auto) 0.9 (0-4) % Baso % (Auto) 0.3 (0-2) % Lymph # (Auto) 1.9 (1.2-4.9) X10*3/uL [place]anan # (Auto) 0.4 (0.1-1.2) X10*3/uL Eos # (Auto) 0.1 (0.0-0.4) X10*3/uL Baso # (Auto) 0.0 (0.0-0.2) X10*3/uL Abs Immat Gran (auto) 0.02 (0.00-0.03) X10*3/uL Absolute Neuts (auto) 3.4 (2.0-8.3) x10*3/uL Absolute Nucleated RBC 0.000 (0.0-0.012) X10*3/uL Nucleated RBC % (auto) 0.0 (0.0-0.2) /100WBC Sodium 143 (135-145) mmol/L Potassium 3.5 (3.3-5.1) mmol/L Chloride 110 H (96-108) mmol/L Carbon Dioxide 27 (22-29) mmol/L Anion Gap 10 L (12-20) BUN 13 (9-16) mg/dL Creatinine 0.74 (0.5-1.4) mg/dL Estim Creat Clear Calc 71.6 Estimated GFR > 60 Random Glucose 101 (60-115) mg/dL Calcium 9.2 (8.4-10.2) mg/dL Total Bilirubin 0.5 (0.0-1.0) mg/dL AST 26 (5-31) U/L ALT 35 H (0-31) U/L Alkaline Phosphatase 76 (39-117) U/L Total Protein 7.4 (6.5-8.0) g/dL Albumin 4.3 (3.5-5.0) g/dL Urine Color Yellow Urine Appearance Clear Urine pH 7.0 (5.0-9.0) Ur Specific [place] 1.020 (1.005-1.025) Urine Protein Negative (Neg-Trace) mg/dL Urine Glucose (UA) Negative (Negative) mg/dL Urine Ketones Negative (Negative) mg/dL Urine Blood Negative (Negative) Urine Nitrite Negative (Negative) Ur Leukocyte Esterase Negative (Negative) Independent Interpretation I performed an independent interpretation of an: CT Scan Interpretation: CT A/P without obstruction Radiology Impression Discussion of test interpretation with radiology: I have reviewed the radiologist's reading. Radiologist Impression: EXAMINATION: CT ABDOMEN AND PELVIS WITHOUT CONTRAST CLINICAL INFORMATION: Epigastric pain. Low back pain. COMPARISON: CT dated April 17, 2021. TECHNIQUE: Multidetector volumetric imaging was performed from the superior aspect of the liver through the pubic symphysis. Sagittal and coronal reformatted images were obtained on the technologist's workstation. This CT examination was performed using dose optimization techniques as appropriate, variously including the following: *Automated exposure control *Adjustment of mA and/or kV according to patient size (this includes techniques or standardized protocols for targeted exams where dose is matched to indication/reason for exam; i.e. extremities or head) *Use of iterative reconstruction technique DLP: 449 mGy-cm FINDINGS: Inadequate evaluation of the intra-abdominal organs and vascular structures due to lack of IV contrast. LUNG BASES: Pulmonary mosaic pattern. LIVER, GALLBLADDER, AND BILIARY TREE: Liver measures 16 cm. There is heterogeneous decreased attenuation more conspicuous in the caudate lobe and adjacent to the falciform ligament. No intrahepatic biliary ductal dilatation. No pericholecystic fluid collection or gallbladder wall thickening. No extrahepatic biliary ductal dilatation. PANCREAS: No peripancreatic fluid collections. No main pancreatic ductal dilatation. SPLEEN: 9 cm. ADRENAL GLANDS: No nodular lesions. KIDNEYS AND URETERS: No hydronephrosis or nephrolithiasis. BLADDER: Fluid-filled. GASTROINTESTINAL TRACT: Appendix is normal. Diverticula in the left hemicolon. No pericolonic edema pattern. Abundant stool. No intestinal obstruction pattern. No pneumatosis intestinalis. No ascites. No pneumoperitoneum. ABDOMINAL WALL: Small fat-containing umbilical hernia and diastases abdominal rectus muscles in the umbilical region. LYMPH NODES: No lymphadenopathy. VASCULAR: Calcified plaques in the origin of the mesenteric arteries and main renal arteries. Calcified plaques in the distal abdominal aorta and iliac arteries. No aneurysm, abdominal aorta. 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 PELVIC VISCERA: Absent uterus. Probable small left adnexa. OSSEOUS STRUCTURES: No acute fracture or gross listhesis. Osteopenia versus osteoporosis. No lytic or blastic lesions. CT/CT abdomen pelvis wo IV con IMPRESSION: No hydronephrosis or nephrolithiasis. Diverticular disease, left hemicolon. Hepatomegaly and steatosis. Small airway disease versus small pulmonary artery disease. Fleischner guidelines were followed. Electronically signed by: Fritz Huertas MD 08/24/2024 01:19 PM [facility] External Record Review External record reviewed: Inpatient record, Office record, Outpatient record, Prior outpatient labs, Prior outpatient radiology, Primary care record and Outside ED record Prescription Management I considered prescription management with: Other (miralax, colase, sucralfate) Chronic Conditions Patient?s care impacted by: Other (GERD, NAFLD, fibromyalgia) Social Determinants Patient?s care significantly limited by Social Determinants of Health including: Other Social Determinant of Health Critical Care Time Critical Care Time Critical Care Time: No Discharge Plan Discharge Clinical Impression: Abdominal pain Qualifiers: Abdominal location: left upper quadrant Qualified Code(s): R10.12 - Left upper quadrant pain Patient Disposition: Home, Self-Care Instructions: Abdominal Pain (ED) Additional Instructions: You were evaluated in the ED today for abdominal pain and nausea. Your blood work today is reassuring. Your urine is negative for infection. The CT scan of your abdomen does not reveal any acute intra-abdominal pathology. It does show a moderate amount of stool within your colon. I have sent miralax to your pharmacy for you to take as needed to pass your bowels. I have also sent colace to your pharmacy which is a stool softener. Carafate has been sent to your pharmacy for you to take as needed for abdominal pain/ nausea. Keep your follow-up appointment with your GI specialist next week. Follow up with your primary care provider as needed. Return with new or worsening symptoms. Prescriptions: New docusate sodium 50 mg capsule 50 mg PO DAILY Qty: 10 0RF polyethylene glycol 3350 [Miralax] 17 gram powder in packet 17 g PO DAILY 4 Days Qty: 14 0RF No Action Allergy Relief (cetirizine) 10 mg capsule 10 mg PO DAILY 30 Days Qty: 30 6RF albuterol sulfate 90 mcg/actuation HFA aerosol inhaler 2 puff inhalation Q6H PRN (Reason: shortness of breath or wheezing) 30 Days Qty: 8.5 3RF cyclobenzaprine 10 mg tablet 10 mg PO BID 30 Days Qty: 60 3RF diclofenac sodium [Voltaren Arthritis Pain] 1 % gel 2 g topical QID 30 Days Qty: 100 3RF Rx Instructions: apply to single elbow, wrist or hand; for hand includes palm/fingers/back of hand fluticasone propionate 50 mcg/actuation spray,suspension 1 spray intranasal DAILY 30 Days Qty: 16 3RF Rx Instructions: administer into each nostril gabapentin 300 mg capsule 300 mg PO TID 30 Days Qty: 90 3RF olopatadine [Pataday Once Daily Relief] 0.2 % drops 1 drp ophthalmic (eye) DAILY 30 Days Qty: 2.5 3RF midodrine 5 mg tablet 5 mg PO BID 30 Days Qty: 60 3RF Rx Instructions: do not give last dose of day after 6PM or within 4 hrs of bedtime topiramate 25 mg tablet 25 mg PO DAILY esomeprazole magnesium [Nexium] 40 mg capsule,delayed release(DR/EC) 40 mg PO DAILY Qty: 30 5RF Referrals: Fahad Bee PA-C [Primary Care Provider] - Interventions: ED Discharge Assessment Last Done: 08/24/24 15:12 Discharge Date/Time: 08/24/24 15:00 Print Language: Icelandic
[2024-08-24 15:12] VITALS: BP 149/83; PULSE 93; RESP 18; TEMP 36.7; O2SAT 98
== END 2024-08-24 15:00 | disposition home or self-care (01) ==
PROVIDERS: Emergency Provider Student in an Organized Health Care Education/Training Program; PCP Physician Assistant
DX: R10.12 Left upper quadrant pain (principal); R11.0 Nausea; R10.9 Unspecified abdominal pain; K21.9 Gastro-esophageal reflux disease without esophagitis; K76.0 Fatty (change of) liver, not elsewhere classified
CPT/HCPCS: 36415; 74176; 80053; 81003; 85025; 99283; 99284

== ENCOUNTER → 2024-08-24 11:01 | Outpatient (BNV) | payer OTHER, SELFPAY | PROVIDERS: Emergency Provider Student in an Organized Health Care Education/Training Program; PCP Physician Assistant; Visit Provider Radiology Diagnostic Radiology | DX: R10.13 Epigastric pain (principal) | CPT/HCPCS: 74176 ==

== ENCOUNTER 2024-08-30 13:22 | Outpatient (REF) | payer OTHER, SELFPAY ==
[2024-08-30 16:47] LABS: Alanine Aminotransferase 44 U/L (0-31); Albumin Level 4.6 g/dL (3.5-5.0); Alkaline Phosphatase 79 U/L (39-117); Aspartate Amino Transferase 30 U/L (5-31); Bilirubin Direct 0.1 mg/dL (0.0-0.5); Bilirubin Total 0.3 mg/dL (0.0-1.0); Lipase 19 U/L (8-78); Total Protein 7.7 g/dL (6.5-8.0)
[2024-08-30 17:03] LABS: TSH reflex Free T4 1.54 uIU/mL (0.32-4.0)
[2024-08-30 17:17] LABS: Folate 14.2 ng/mL (> or = 4.0); Vitamin B12 432 pg/mL (200-900)
[2024-08-31 19:24] LABS: Transglutaminase IgA <1.0 U/mL
[2024-09-03 18:49] LABS: Vitamin D 25-OH, D2 <4 ng/mL; Vitamin D 25-OH, D3 24 ng/mL; Vitamin D 25-OH, Total 24 ng/mL (30-100)
== END 2024-08-30 13:23 | disposition home or self-care (01) ==
LOC: HO.LAB 13:22
PROVIDERS: PCP Physician Assistant; Visit Provider Nurse Practitioner Family
DX: K59.00 Constipation, unspecified (principal); R19.7 Diarrhea, unspecified; R10.9 Unspecified abdominal pain; R74.01 Elevation of levels of liver transaminase levels; E55.9 Vitamin D deficiency, unspecified; R10.13 Epigastric pain; K21.9 Gastro-esophageal reflux disease without esophagitis; R10.32 Left lower quadrant pain; K76.0 Fatty (change of) liver, not elsewhere classified; R10.12 Left upper quadrant pain
CPT/HCPCS: 36415; 80076; 82306; 82607; 82746; 83690; 84443; 86364; 99212

== ENCOUNTER → 2024-08-30 13:22 | Outpatient (AMB) | payer OTHER, SELFPAY ==
--- NOTE | 2024-08-30 13:50 | A.OFFVIS_ITS ---
Vital Signs 08/30/24 13:52 Height 5 ft 1 in Weight 147 lb 11.355 oz BMI 27.9 BP 132/76 Blood Pressure Location Lt brachial Position Sitting Pulse 78 Pulse Source Pulse Oximeter Pulse Oximetry (%) 98 Oxygen Delivery Method Room Air Intake Visit Reasons: acid reflex/Eleni pt Intake Note: Patient follow up for acid reflex and lab results. Eleni former pt cira was 12/14/2023. ESTABLISHED PATIENT Pili presents in office today for a scheduled ~8 mos FUV. Meds and Allergies reviewed? Y No recent or relevant surgeries? N Any significant concerns or new changes? GERD sx including nausea. B/L UQ Pain. Pt is still taking pantoprazole 20 mg Pharmacy verified? [facility] Washing Tub Operator Required: Yes Washing Tub Operator Services: Washing Tub Operator Present Washing Tub Operator Name: Jimy [id number] Information Interpreted: non-clinical & clinical Allergies oxycodone [From PERCOCET] Allergy (Intermediate, Verified 08/30/24 13:51) VOMITING/DIZZINESS tramadol [TRAMADOL] Allergy (Intermediate, Verified 08/30/24 13:51) DIZZINESS HPI HPI acid reflex/Eleni pt: Details: LAST VISIT WITH MYKE KNOX 12/31/2023 A 58 y/o female seen - with RUQ pain- returns with epigastric pain-2 wks ago after eating a strong pain now intermittent not strong acid- no medications EGD/ colon- 10/2019- reviewed w/ pt- No N/V/ D- fever or chills ED VISIT 08/24/2024 HPI narrative: 59-year-old female with past medical history significant for GERD, NAFLD, and fibromyalgia presents to the ED today for evaluation of epigastric abdominal pain and nausea without vomiting x3-4 days. She reports symptoms are primarily present on waking in the morning and improve throughout the day. She has not trialed any lndj-ahs-afantrp medications for her symptoms. Denies any history of similar. Denies etoh consumption. She denies any pain or nausea at present. Denies fever, chills, flank pain, diarrhea, constipation, dysuria, hematuria. She also endorses pressure along her tailbone since yesterday. Denies pain. Denies blunt injury or trauma to the area. Denies constipation and states that she has had a bowel movement every morning for the past 2 weeks. Last bowel movement was this morning and was normal for her. Denies any melena or hematochezia. Denies joan blood. Denies rectal pain. TODAY'S VISIT 59-year-old female with past medical history of fibromyalgia, depression, orthostatic hypertension, allergic rhinitis, NAFLD is here today for requested visit. Patient was seen before by Myke KITCHEN, however provider no longer works in this practice. Patient requested to be seen and was unable to wait for scheduled appointment and went to ER on TuesdayAugust 24. Patient had normal labs, CT did not show any acute processes except for moderate amount of stool in her colon. Patient was given script for MiraLax and sucralfate to help her with her epigastric discomfort. Patient is on pantoprazole, however she states that she feels like it is not working. She continues to have right upper and left upper quadrant pain. Reports that she is moving her bowels better now occasionally used stool softeners to help her move her bowels. Patient reports that she usually has not experience constipation. Patient denies at this moment any abdominal pain or discomfort. Denies any nausea or vomiting. Denies any cramping. Describes the pain as worse after she eats. Denies any postprandial diarrhea, however she does experience postprandial bloating [facility] Medical History Acid reflux NAFLD (nonalcoholic fatty liver disease) Abdominal pain Surgical History H/O colonoscopy History of breast biopsy History of toe surgery History of hysterectomy History of thumb surgery History of carpal tunnel surgery of right wrist History of carpal tunnel surgery of left wrist Family History Father COPD (chronic obstructive pulmonary disease) Smoker Maternal Aunt Hypertension Sister Breast cancer Mother Hypertension Social History Household Members: Children Housing: Apartment Alcohol intake: never Patient Tobacco Use Status: Never used Tobacco e-Cigarette/Vaping Use: Never Used Second Hand Smoke Exposure: Yes service: No Current occupational status: unemployed 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 Cognitive needs: No Hearing needs: No Vision needs: Yes Review of Systems Const Denies weight gain and Denies weight loss ENT Reports no additional complaints, Denies dysphagia and Denies odynophagia Card Reports no additional complaints Resp Reports no additional complaints GI Reports abdominal pain (LUQ, RUQ), Denies belching, Denies melena, Reports bloating, Denies change in bowel habits, Reports constipation (Occasional), Den ies dysphagia, Denies excessive flatus, Reports dyspepsia, Reports heartburn, Denies diarrhea, Denies loose stools, Denies nausea, Denies odynophagia and Denies vomiting Reports no additional complaints Musc Reports no additional complaints Neuro Reports no additional complaints Psych Reports no additional complaints Endo Reports no additional complaints Physical Exam Vital Signs: Last Vital Signs Pulse 78 08/30/24 13:52 BP 132/76 08/30/24 13:52 Pulse Ox 98 08/30/24 13:52 Oxygen Delivery Method Room Air 08/30/24 13:52 BMI result Body Mass Index 27.9 Const General: healthy appearing, no acute distress and well developed Nutritional Appearance: well nourished Orientation/consciousness: patient oriented x3 Resp Effort & Inspection: normal respiratory effort, able to speak in complete sentences, no tracheal deviation and symmetric chest movement Auscultation: clear to auscultation bilaterally Cardio Rate: regular rate GI Inspection: Yes normal to inspection and No distended Palpation (GI): Soft to palpation, not firm, nontender and No hepatosplenomegaly present Auscultation: normal bowel sounds General: Yes no CVA tenderness Back/Spine/Pelvis Back: no CVA tenderness Skin General skin exam: elasticity normal, turgor normal and dry skin Neuro General: patient oriented x3 Psych Appearance: grossly normal Mental Status: mental status grossly normal Results Reviewed Results Reviewed: CT OF ABDOMEN AND PELVIS WITHOUT IV CONTRAST FINDINGS: Inadequate evaluation of the intra-abdominal organs and vascular structures due to lack of IV contrast. LUNG BASES: Pulmonary mosaic pattern. LIVER, GALLBLADDER, AND BILIARY TREE: Liver measures 16 cm. There is heterogeneous decreased attenuation more conspicuous in the caudate lobe and adjacent to the falciform ligament. No intrahepatic biliary ductal dilatation. No pericholecystic fluid collection or gallbladder wall thickening. No extrahepatic biliary ductal dilatation. PANCREAS: No peripancreatic fluid collections. No main pancreatic ductal dilatation. SPLEEN: 9 cm. ADRENAL GLANDS: No nodular lesions. KIDNEYS AND URETERS: No hydronephrosis or nephrolithiasis. BLADDER: Fluid-filled. GASTROINTESTINAL TRACT: Appendix is normal. Diverticula in the left hemicolon. No pericolonic edema pattern. Abundant stool. No intestinal obstruction pattern. No pneumatosis intestinalis. No ascites. No pneumoperitoneum. ABDOMINAL WALL: Small fat-containing umbilical hernia and diastases abdominal rectus muscles in the umbilical region. LYMPH NODES: No lymphadenopathy. VASCULAR: Calcified plaques in the origin of the mesenteric arteries and main renal arteries. Calcified plaques in the distal abdominal aorta and iliac arteries. No aneurysm, abdominal aorta. 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 PELVIC VISCERA: Absent uterus. Probable small left adnexa. OSSEOUS STRUCTURES: No acute fracture or gross listhesis. Osteopenia versus osteoporosis. No lytic or blastic lesions. CT/CT abdomen pelvis wo IV con IMPRESSION: No hydronephrosis or nephrolithiasis. Diverticular disease, left hemicolon. Hepatomegaly and steatosis. Small airway disease versus small pulmonary artery disease. Assessment & Plan Assessment & Plan (1) Epigastric pain: Code(s): R10.13 - Epigastric pain Category: Medical (2) Acid reflux: Code(s): K21.9 - Gastro-esophageal reflux disease without esophagitis Category: Medical Qualifiers: Esophagitis presence: esophagitis presence not specified Qualified Code(s): K21.9 - Gastro-esophageal reflux disease without esophagitis (3) LLQ abdominal pain: Code(s): R10.32 - Left lower quadrant pain Category: Medical (4) NAFLD (nonalcoholic fatty liver disease): Comment: [employer]- update labs Code(s): K76.0 - Fatty (change of) liver, not elsewhere classified Category: Medical (5) Abdominal pain: Code(s): R10.9 - Unspecified abdominal pain Category: Medical Qualifiers: Abdominal location: left upper quadrant Qualified Code(s): R10.12 - Left upper quadrant pain Plan Patient will stop pantoprazole and will start in esomeprazole 40 mg daily. Avoid dietary triggers and late night snacking. Staying upright for minimum 3 hours after meals discussed with patient. Will check lipase, thyroid study, liver panel, vitamin B12, folate, vitamin-D levels. Will rule out celiac. Patient will be sent for limited ultrasound to evaluate the liver, diagnosed with NAFLD. Patient was encouraged to increase fluid intake and activity to promote better bowel motility. Patient will return to the office in 3 months. She will call us if she will have worsening symptoms or any new GI concerning symptoms. Patient is agreeable to current plan of care and verbalizes understanding of instructions. She was given the opportunity to ask questions and all questions answered. Thank you for allowing me to participate in her care Orders: Orders TSH reflex Free T4 Today K59.00 - Constipation, unspecified Vitamin B12 and Folate Today R19.7 - Diarrhea, unspecified Liver Panel Today R74.01 - Elevation of levels of liver transaminase levels US abdomen limited Today R79.89 - Other specified abnormal findings of blood c hemistry Transglutaminase IgA Today R10.9 - Unspecified abdominal pain Vitamin D 25-OH (D2 and D3) Today E55.9 - Vitamin D deficiency, unspecified Lipase Today R10.9 - Unspecified abdominal pain Medications: New esomeprazole magnesium (Nexium) 40 mg PO DAILY 30 caps 5RF K21.9 - Gastro- esophageal reflux disease without esophagitis Discontinued metoclopramide HCl (Reglan) Discontinued Reason: Patient no longer taking 10 mg PO Q6H PRN 14 tabs 0RF nausea and vomiting sucralfate (Carafate) Discontinued Reason: Patient no longer taking 1 g PO BID 2 weeks 28 tabs 0RF ibuprofen Discontinued Reason: Patient no longer taking 600 mg PO Q6H PRN 30 tabs 0RF fever or pain Coding Level of Care Code Est Pt Level 4 (02024) Diagnoses Epigastric pain R10.13 Gastroesophageal reflux disease, unspecified whether esophagitis present K21.9 Esophagitis presence: esophagitis presence not specified LLQ abdominal pain R10.32 NAFLD (nonalcoholic fatty liver disease) K76.0 Left upper quadrant abdominal pain R10.12 Abdominal location: left upper quadrant Time Spent (min) 40 Comment 25 minutes spent with patient and additional 15 minutes spent reviewing her records
[2024-08-30 13:52] VITALS: BP 132/76; PULSE 78; O2SAT 98; BMI 27.9
== END ==
PROVIDERS: PCP Physician Assistant; Visit Provider Nurse Practitioner Family
DX: R10.13 Epigastric pain (principal); K21.9 Gastro-esophageal reflux disease without esophagitis; R10.32 Left lower quadrant pain; K76.0 Fatty (change of) liver, not elsewhere classified; R10.12 Left upper quadrant pain
CPT/HCPCS: 99214

== ENCOUNTER 2024-09-25 06:17 | Outpatient (REF) | payer OTHER, SELFPAY ==
--- NOTE | 2024-09-25 05:55 | EMG_ITS ---
Bilateral median and ulnar motor and sensory studies were performed. Bilateral radial sensory and median and lateral antecubital brachial sensory studies were performed and paraspinal muscles were tested with a needle. IMPRESSION: 1. Mild bilateral median neuropathy across carpal tunnel. 2. Mild right ulnar neuropathy affecting motor and sensory components, of non entrapment type. MD SRI Preston/VALENTINE / [phone]
== END 2024-09-25 06:18 | disposition home or self-care (01) ==
LOC: HO.NEURO 06:17
PROVIDERS: PCP Physician Assistant; Visit Provider Physician Assistant
DX: R20.2 Paresthesia of skin (principal)
CPT/HCPCS: 95886; 95913

== ENCOUNTER 2024-10-09 07:48 | Outpatient (REF) | payer OTHER, SELFPAY ==
--- NOTE | ~2024-10-09 | US_ITS ---
CLINICAL HISTORY: R79.89 - Other specified abnormal findings of blood chemistry US abdomen limited Comparison: None Findings: Fatty infiltration of the liver. Right lobe: 11.0 cm. Increased fatty infiltration noted along falciform ligament. This does not appear to represent a true focal lesion. Visualized pancreas unremarkable. Gallbladder unremarkable without stones or wall thickening. Common duct 4.4 mm diameter. No ultrasonographic Cagle sign. Right kidney normal, 9.8 cm in length. Impression: Fatty infiltration of the liver Otherwise unremarkable This document has been electronically signed by: Librado Taylor MD on 10/09/2024 19:24:18
--- OUTSIDE RECORDS SUMMARY | 2024-10-09 07:51 | XMS_ITS | Encounter Summary ---
Author Organization [facility] Address [address] [place] [address] Care Team Providers Care Community Organizer Name Role Phone Stephany Salinas MD Primary Care Provider Len bello Encounter Details Date Type Department Care Team Description 12/01/2015 [facility] Medical Records [address] [place] [address] Jaylin Burk MD [address] [place] [id number] Social History Tobacco Use Types Packs/Day Years Used Date Smoking Tobacco: Never Smokeless Tobacco: Never Alcohol Use Standard Drinks/Week Comments No 0 (1 standard drink = 0.6 oz pur e alcohol) Sex Assigned at Date Recorded Not on file documented as of this encounter Plan of Treatment Not on file documented as of this encounter Visit Diagnoses Not on filedocumented in this encounter Care Teams Community Organizer Relationship Specialty Start Date End Date Stephany Salinas MD PCP - General Internal Medicine 03/21/12 documented as of this encounter
--- OUTSIDE RECORDS SUMMARY | 2024-10-09 07:51 | XMS_ITS | Clinical Summary ---
Author Organization [facility] Address [address] [place] [address] Care Team Providers Care Peoplesoft Hcm Developer Name Role Phone Stephany Salinas MD Primary Care Provider Unava ilable Allergies Active Allergy Reactions Severity Noted Date Comments Apap-Fd&C Red #40 [place]-Oxycodone Nausea and Vomiting 07/31/2014 dizziness Medications Medication Sig Dispensed Refills Start Date End Date Status lorazepam (ATIVAN) 0.5 MG tablet Take 0.5 mg by mouth 2 times daily. 0 Active citalopram (CELEXA) 20 MG tablet Take 1 Tab by mouth daily. 30 Tab 5 03/22/2012 Active Zolpidem Tartrate 10 MG TABS Take by mouth at bedtime as needed. 0 Active ALBUTEROL SULFATE 108 (90 BASE) MCG/ACT AERS Inhale 2 Puffs into the lungs every 4 hours as needed for Cough, Wheezing or Shortness of Breath. 1 Inhaler 5 09/25/2012 Active quetiapine (SEROQUEL) 300 MG tablet Take 300 mg by mouth. Bedtime 0 Active Misc. Devices (CERVICAL PILLOW) MiscIndications:Neck pain 1 Units by Does not apply route See Admin Instructions. 1 Each 0 08/28/2015 Active lactulose (CHRONULAC) 10 GM/15ML solution Take 30 mL by mouth 2 times daily. 473 mL 5 08/17/2016 Active loratadine (CLARITIN) 10 MG tablet Take 1 Tab by mouth daily. 90 Tab 1 12/22/2017 Active Multiple Vitamins-Minerals (MULTIVITAMIN WOMEN 50+) Tab Take 1 Tab by mouth daily. 90 Tab 1 12/22/2017 Active Active Problems Problem Noted Date Hiatal hernia with GERD without esophagi tis 06/30/2016 Overview: Moderate sized hiatal hernia Increased risk of breast cancer 09/09/20 15 Gastroparesis 04/11/2013 Fatty liver disease, nonalcoholic 2012 GERD (gastroesophageal reflux disease) 0 12/06/2012 Asthma 09/25/2012 Lung nodule 08/31/2012 Family history of breast cancer 08/31/20 12 Duodenal ulcer due to Helicobacter pylor i 03/22/2012 Depression 03/22/2012 Immunizations Name Administration Dates Next Due Influenza (> 6 Months) 05/27/2016,2014,08/26/2014,05/25/2013, 2 PPD-RBMG 12/22/2017 Tdap 09/25/2012 Family History Medical History Relation Name Comments Arthritis Father Diabetes Father Arthritis Mother CA Breast Mother dx > age 50 Hypertension Mother breast cancer Other dx age > 50; m aternal first cousin CA Breast Sister 1 mutation all 3 sisters, ? gene CA Breast Sister 2 CA Breast Sister 3 Asthma Son 1 No Known Problems Son 2 CA Esophageal Negative Hx CA Ovarian Negative Hx CA Stomach Negative Hx Uterine Cancer Negative Hx Relation Name Status Comments Father Maternal Grandfather Maternal Grandmother Mother Alive Other Sister 1 Alive Sister 2 Alive Sister 3 Alive Son 1 Alive Son 2 Alive Social History Tobacco Use Types Packs/Day Years Used Date Smoking Tobacco: Never Smokeless Tobacco: Never Alcohol Use Standard Drinks/Week Comments No 0 (1 standard drink = 0.6 oz pur e alcohol) Sex Assigned at Date Recorded Not on file Last Filed Vital Signs Vital Sign Reading Time Taken Comments Blood Pressure 100/70 02/07/2018 8:17 AM EDT Pulse 60 02/07/2018 8:17 AM EDT Temperature 36.6 ??C (97.8 ??F) 02/07/2018 8:17 AM ED T Respiratory Rate 12 02/07/2018 8:17 AM EDT Oxygen Saturation 98% 04/18/2016 10:50 AM EDT Inhaled Oxygen Concentration - - Weight 61.2 kg (135 lb) 02/07/2018 8:17 AM EDT Height 154.9 cm (5' 1 ) 02/07/2018 8:17 AM EDT Body Mass Index 25.51 02/07/2018 8:17 AM EDT Plan of Treatment Health Maintenance Due Date Last Done Comments Covid-19 Vaccine (#1) 1967 HEPATITIS C SCREENING 1985 CERVICAL CANCER SCREENING 1988 SHINGLES VACCINE (1 of 2) 2017 CHOLESTEROL SCREENING 09/29/2017 09/29/2012 MAMMOGRAM 11/11/2018 11/11/2017, 05/2018, 09/10/2016, Additional history exists BASELINE HEALTH EXAM 40-64 12/23/201912/22, 10/18/2016, 08/28/2015, Additional history exists DTAP/TDAP/TD (2 - Td or Tdap) 09/25/2022 09/25/2012 INFLUENZA (#1) 2024 05/27/2016, 08/12, 08/26/2014, Additional history exists BMI CHECK/ADVISE 09/12/2024 12/22/2017, 02/2017, 07/20/2016, Additional history exists DEPRESSION SCREENING/FOLLOWUP 09/12/2024 03/22/2012, 03/22/2012 SOCIAL NEEDS SCREENING 09/12/2024 COLON CANCER SCREENING 12/09/2024 12/09/2014, 2014 PNEUMOCOCCAL VACCINE FOR HIG H RISK PATIENTS (#2) 2032 10/18/2016 (Refused) Care Teams Peoplesoft Hcm Developer Relationship Specialty Start Date End Date Stephany Salinas MD PCP - General Internal Medicine 03/21/12
--- OUTSIDE RECORDS SUMMARY | 2024-10-09 07:51 | XMS_ITS | Clinical Summary ---
Author Organization [facility] Address [address] [place] [address] Care Team Providers Care Crude Oil Treater Name Role Phone Unavailable Primary Care Provider Unavailabl e Immunizations Name Administration Dates Next Due Hep B, adult 03/27/2020 Influenza Injectable Quadriv alant Preservative Free IIV4 MDCK 06/28/2023 Influenza injectable quadriv alent preservative free 07/10/2020 Influenza, IIV3, injectable 05/27/2016,1 10/29/2014,08/26/2014,2012,07/13/2012,06/13/2012 PPD Test 12/22/2017 Td (adult), 5 Lf tetanus tox oid, preservative free, adsorbed 07/03/2014 Tdap 03/18/2020,09/25/2012 Zoster, Recombinant 06/28/2023 Social History Tobacco Use Types Packs/Day Years Used Date Smoking Tobacco: Never Assessed Comments Unknown Sex and Gender Information Value Date Recorded Sex Assigned at Female 07/12/2022 10:26 AM EDT Legal Sex Female 10:26 AM EDT Gender Identity Female 07/12/2022 10:26 AM EDT Sexual Orientation Straight 07/12/2022 10 :26 AM EDT Plan of Treatment Health Maintenance Due Date Last Done Comments CT Colonography 1967 Colonoscopy 1967 Colorectal Cancer Screening 1967 Depression Screening 1967 FIT DNA/Cologuard 1967 FIT 1967 FOBT 1967 HIV Screening 1967 SDOH Screening 1967 Sigmoidoscopy 1967 Pneumococcal Vaccine: Pediatrics (0 to 5 Years) and At-Risk Patients (6 to 64 Years) (1 of 2 - PCV) 1973 Alcohol/Substance Use Screening 1979 Tobacco Screening 1979 Hepatitis C Screening 1985 Hepatitis A Vaccines (1 of 2 - Risk 2-dose series) 1986 Pap Smear 1988 Cervical Cancer Screening 1997 HPV/Cotest 1997 Mammogram 2007 Hepatitis B Vaccines (2 of 3 - 19+ 3-dose series) 2020 03/27/2020 Zoster Vaccines (2 of 2) 08/23/2023 06/28/2023 COVID-19 Vaccine (4 - season) 2024 10/30/2021, 01/07/2021, 12/11/2020 Influenza Vaccine (#1) 2024 , 07/10/2020, 05/27/2016, Additional history exists DTaP/Tdap/Td Vaccines (4 - Td or Tdap) 03/18/2030 03/18/2020, 07/03/2014, 09/25/2012 RSV Patients and Patients Aged 60 years or older (1 - 1-dose 75+ series) 2042 HIB Vaccines Aged Out No longer eligi ble based on patient's age to complete this topic HPV Vaccines Aged Out No longer eligi ble based on patient's age to complete this topic IPV Vaccines Aged Out No longer eligi ble based on patient's age to complete this topic Meningococcal Vaccine Aged Out No karen kaz eligible based on patient's age to complete this topic RSV under 20 months Aged Out No longe r eligible based on patient's age to complete this topic Rotavirus Vaccines Aged Out No longer eligible based on patient's age to complete this topic Insurance HSN PARTIAL
--- OUTSIDE RECORDS SUMMARY | 2024-10-09 07:51 | XMS_ITS | Encounter Summary ---
Author Organization [facility] Address [address] [place] [address] Care Team Providers Care Truck Mechanic Apprentice Name Role Phone Stephany Salinas MD Primary Care Provider Unava ilable Reason for Visit * Reason Onset Date Comments Faxed Refill 02/07/2019 Encounter Details Date Type Department Care Team Description 02/07/2019 Refill Adult Medicine [address] [address] Stephany Salinas MD Faxed Refill Social History Tobacco Use Types Packs/Day Years [...] on filedocumented in this encounter Care Teams Truck Mechanic Apprentice Relationship Specialty Start Date End Date Stephany Salinas MD PCP - General Internal Medicine 03/21/12 documented as of this encounter
--- OUTSIDE RECORDS SUMMARY | 2024-10-09 07:51 | XMS_ITS | Encounter Summary ---
Author Organization [facility] Address [address] [place] [address] Care Team Providers Care Batch Plant Operator Name Role Phone Stephany Salinas MD Primary Care Provider Unava ilable Encounter Details Date Type Department Care Team Description 10/30/2015 Hopper Operator Report Medical Records [address] [place] [address] Chikis Mata MD Social History Tobacco Use Types Packs/Day Years [...] on filedocumented in this encounter Care Teams Batch Plant Operator Relationship Specialty Start Date End Date Stephany Salinas MD PCP - General Internal Medicine 03/21/12 documented as of this encounter
--- OUTSIDE RECORDS SUMMARY | 2024-10-09 07:51 | XMS_ITS | Encounter Summary ---
Author Organization [facility] Address [address] [place] [address] Care Team Providers Care History Faculty Member Name Role Phone Stephany Salinas MD Primary Care Provider Unava ilable Encounter Details Date Type Department Care Team Description 12/16/2017 Release of Information Medical Records [address] [place] [id number] Abstract, Provider Social History Tobacco Use Types Packs/Day Years [...] on filedocumented in this encounter Care Teams History Faculty Member Relationship Specialty Start Date End Date Stephany Salinas MD PCP - General Internal Medicine 03/21/12 documented as of this encounter
--- OUTSIDE RECORDS SUMMARY | 2024-10-09 07:51 | XMS_ITS | Encounter Summary ---
Author Organization [facility] Address [address] [place] [address] Care Team Providers Care Solution Developer Name Role Phone Stephany Salinas MD Primary Care Provider Unava ilable Encounter Details Date Type Department Care Team Description 11/05/2016 Release of Information Medical Records [address] [place] [id number] Abstract, Provider Social History Tobacco Use Types [...] on filedocumented in this encounter Care Teams Solution Developer Relationship Specialty Start Date End Date Stephany Salinas MD PCP - General Internal Medicine 03/21/12 documented as of this encounter
--- OUTSIDE RECORDS SUMMARY | 2024-10-09 07:51 | XMS_ITS | Encounter Summary ---
Author Organization [facility] Address [address] [place] [address] Care Team Providers Care Investment Analyst Name Role Phone Stephany Salinas MD Primary Care Provider Unava ilable Encounter Details Date Type Department Care Team Description 01/03/2018 [facility] Medical Records [address] [place] [id number] [place] [address] Social History Tobacco Use Types Packs/Day Years [...] on filedocumented in this encounter Care Teams Investment Analyst Relationship Specialty Start Date End Date Stephany Salinas MD PCP - General Internal Medicine 03/21/12 documented as of this encounter
== END 2024-10-09 07:49 | disposition home or self-care (01) ==
LOC: HO.US 07:48
PROVIDERS: PCP Physician Assistant; Visit Provider Nurse Practitioner Family
DX: R79.89 Other specified abnormal findings of blood chemistry (principal)
CPT/HCPCS: 76705

== ENCOUNTER → 2024-10-09 07:50 | Outpatient (BNV) | payer OTHER, SELFPAY | PROVIDERS: PCP Physician Assistant; Visit Provider Radiology Diagnostic Radiology | DX: R79.89 Other specified abnormal findings of blood chemistry (principal) | CPT/HCPCS: 76705 ==

== ENCOUNTER 2024-11-14 13:20 | Outpatient (AMB) | payer OTHER, SELFPAY ==
--- NOTE | 2024-11-14 13:30 | A.OFFPC_ITS ---
Vital Signs 11/14/24 13:41 Height 5 ft 1 in Weight 143 lb 6 oz BMI 27.1 BP 124/74 Blood Pressure Location Lt brachial Position Sitting Pulse 101 H Pulse Source Pulse Oximeter Temp 97.3 F Temp Source Temporal Artery Scan Pulse Oximetry (%) 97 Oxygen Delivery Method Room Air Intake Visit Reasons: Annual Exam Intake Note: Patient is here today for a physical. Trust Accounts Supervisor Required: Yes Trust Accounts Supervisor Language: Residential Program Manager Name: Used Tablet- ID #[id number] Accompanied by: Self / Same As Patient Allergies oxycodone [From PERCOCET] Allergy (Intermediate, Verified 11/14/24 13:49) VOMITING/DIZZINESS tramadol [TRAMADOL] Allergy (Intermediate, Verified 11/14/24 13:49) DIZZINESS Medication List - Last Reconciled 11/14/24 by Fahad Bee PA-C albuterol sulfate 90 mcg/actuation 2 puffs inhalation Q6H PRN 30 days cetirizine (Allergy Relief (cetirizine)) 10 mg PO DAILY 30 days cyclobenzaprine 10 mg PO BID 30 days diclofenac sodium 1% (Voltaren Arthritis Pain) 2 grams topical QID 30 days docusate sodium 50 mg PO DAILY esomeprazole magnesium (Nexium) 40 mg PO DAILY fluticasone propionate 50 mcg/actuation 1 spray intranasal DAILY 30 days gabapentin 300 mg PO TID 30 days midodrine 5 mg PO BID 30 days olopatadine 0.2% (Pataday Once Daily Relief) 1 drp ophthalmic (eye) DAILY 30 days polyethylene glycol 3350 (Miralax) 17 grams PO DAILY 4 days topiramate 25 mg PO DAILY Tobacco use date assessed: 11/14/24 Dental Screening Dental Screen Date: 11/14/24 Did you have a dental visit in the last 12 months?: Yes Did you have a dental problem in the last 6 months where you did not have access to dental care?: No Was dental information given to patient?: Patient has dentist HPI Annual Exam HPI Details Patient is a 59-year-old female here today for annual physical. Patient is Estonian-speaking only thus used a remote communication consultant. Patient has a past medical history significant for chronic pain, depression. .. Concerns--> patient reports increased anxiety as of lately. She is interested starting medication for anxiety. Pseudotumor Cerebri--> has followed up with Neurology in her topiramate was recently increased. She continues to have pain in the posterior aspect of her head radiates into her temporal regions. She is concerned about this and would like a 2nd opinion from Neurology. Will try for an MRI of brain to do we Vaccine: Up-to-date with COVID vaccine, tetanus and shingles vaccines. Considering pneumonia vaccine Colorectal cancer screening: Colonoscopy done in 2019 Mammo: Needs Up to date Mammo ASTHMA EDUCATOR: Had hysterectomy PFSH Medical History Acid reflux NAFLD (nonalcoholic fatty liver disease) Abdominal pain Surgical History H/O colonoscopy History of breast biopsy History of toe surgery History of hysterectomy History of thumb surgery History of carpal tunnel surgery of right wrist History of carpal tunnel surgery of left wrist Family History Father COPD (chronic obstructive pulmonary disease) Smoker Maternal Aunt Hypertension Sister Breast cancer Mother Hypertension Social History Household Members: Children Housing: Apartment Alcohol intake: never Patient Tobacco Use Status: Never used Tobacco e-Cigarette/Vaping Use: Never Used Second Hand Smoke Exposure: Yes service: No Current occupational status: unemployed 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 1. Little interest or pleasure in doing things: not at all 2. Feeling down, depressed, or hopeless: not at all 3. Trouble falling or staying asleep, or sleeping too much: not at all 4. Feeling tired or having little energy: nearly every day 5. Poor appetite or overeating: not at all 6. Feeling bad about yourself - or that you are a failure or have let yourself or your family down: not at all 7. Trouble concentrating on things, such as reading the newspaper or watching television: not at all 8. Moving or speaking so slowly that other people could have noticed. Or the opposite - being so fidgety or restless that you have been moving around a lot more than usual: not at all 9. Thoughts that you would be better off or of hurting yourself in some way: not at all Total score: 3 Depression Screening Interpretation: Negative Depression Screening Done: Yes 88511 - PHQ-9 Billing: Yes Source: Developed by Drs. Landon Beltre, Khadra Tinajero, Robbi Baker and colleagues, with an educational floridalma from [employer]. Thrive Questionnaire Date Thrive assessed: 11/14/24 I am a: Patient What is your living situation today?: I have a steady place to live Within the past 12 months, did the food you bought not last and you didn't have the money to get more?: Never true Within the past 12 months, did you worry whether your food would run out before you got money to buy more?: Never true Do you have trouble paying for medicines?: No Do you have trouble getting transportation to medical appointments?: No Do you have trouble paying your heating and electricity bill?: No Do you have trouble taking care of your child, family member or friend?: No Do you have trouble with day-to-day activities such as bathing, preparing meals, shopping, managing finances, etc.?: No Are you currently unemployed and looking for a job?: No Are you interested in more education?: No Please select the resources that you would like help with: None Currently or been in a relationship where the following occur: No concerns reported THRIVE Score: 0 AUDIT C Alcohol Use Questionnaire (AUDIT-C) 1. How often do you have a drink containing alcohol?: Never 3. How often do you have six or more drinks on one occasion?: Never Total Score: 0 SHIRA-7 AMB Questionnaire SHIRA-7 Date SHIRA - 7 assessed: 11/14/24 Feeling nervous, anxious, or on edge: 0 = Not at all Not being able to stop or control worryin = Not at all Worrying too much about different things: 0 = Not at all Trouble relaxin = Not at all Being so restless that it is hard to sit still: 0 = Not at all Becoming easily annoyed or irritable: 0 = Not at all Feeling afraid as if something awful might happen: 0 = Not at all Total SHIRA-7 score (0-4 normal; 5-9 mild; 10-14 moderate; 15-21 severe): 0 Source: Developed by Drs. Landon Beltre, Khadra Tinajero, Robbi Baker and colleagues, with an educational floridalma from [employer]. SHIRA-7 Assessment Billing SHIRA-7 Assessment Tool: SHIRA-7 Assessment 00631 Review of Systems Const Denies body aches, Denies chills, Denies excessive sweating, Denies fatigue, Denies fever(s) and Reports headache(s) Eyes Denies blurry vision ENT Denies dysphagia, Denies vertigo, Denies dizziness, Reports headache(s), Denies hearing loss and Denies tinnitus Card Denies chest pain, Denies chest pain with activity, Denies syncope, Denies irregular heart rhythm and Denies dyspnea Resp Denies chest congestion, Denies cough, Denies hemoptysis, Denies dyspnea and Denies wheezing GI Denies abdominal pain, Denies melena, Denies hematochezia, Denies coffee ground emesis, Denies dysphagia, Denies diarrhea, Denies nausea and Denies vomiting Denies urinary frequency, Denies dysuria, Denies urinary hesitancy and Denies u rinary urgency Musc Denies arthralgias, Denies limited range of motion, Denies muscle cramps and Denies muscle weakness Skin/Breast Denies rash and Denies skin ulcer Neuro Denies Abnormal speech present, Denies confusion, Denies vertigo, Denies dizziness, Denies syncope, Reports headache(s), Denies memory loss and Denies se izure-like activity Psych Denies anxiety, Denies confusion, Denies depression, Denies memory loss, Denies panic attacks and Denies paranoia Endo Denies excessive sweating, Denies fatigue, Denies flushing, Denies polydipsia and Denies polyuria Aller/Immun Denies wheezing Physical exam (Primary Care) Vital Signs: Last Vital Signs Temp 97.3 F 11/14/24 13:41 Pulse 101 H 11/14/24 13:41 BP 124/74 11/14/24 13:41 Pulse Ox 97 11/14/24 13:41 Oxygen Delivery Method Room Air 11/14/24 13:41 BMI result Body Mass Index 27.1 Tobacco/Smoking Status: Tobacco use Status Tobacco use date assessed 11/14/24 11/14/24 13:33 Patient Tobacco Use Status Never used Tobacco 11/14/24 13:33 e-Cigarette/Vaping Use Never Used 11/14/24 13:33 PHQ-9: PHQ-9 Score PHQ-9: Total score 3 11/14/24 13:51 Depression Screening Interpretation: Negative Thrive Assessment: Date of Thrive Assessment Date Thrive assessed 11/14/24 11/14/24 13:33 Currently or been in a relationship where the following occur: No concerns reported Const General: cooperative, comfortable, no acute distress, alert and awake; No confusion Orientation/consciousness: oriented to person, oriented to place, patient oriented x3 and No confusion HENMT Head: Yes normocephalic Ears: external ears normal and TM's normal bilaterally Face and sinus: No sinus tenderness Mouth: Normal oral and palatal mucosa present and tongue normal Teeth and gingiva: dentition normal and gingiva normal Throat: Yes posterior oropharynx normal, Yes tonsils normal and Yes uvula midline Eyes Conjunctivae: conjunctivae normal Sclerae: sclerae normal Pupils: Equal, round and reactive pupils present EOM: EOMs intact bilaterally Direct Ophthalmoscopy: No no photophobia Neck Neck: Yes no lymphadenopathy, No tender and Yes no JVD Thyroid: Thyroid normal Carotids: no bruits Chest Chest palpation & inspection: no tenderness Resp Effort & Inspection: normal respiratory effort, no audible wheezes, not labored and no stridor Auscultation: no crackles, no rales, no rhonchi and no wheezes Cardio Jugular venous distension: no JVD Rate: regular rate, not bradycardic and not tachycardic Rhythm: regular rhythm Bruits: no carotid bruits Peripheral pulses: Peripheral pulses 2+ throughout GI Inspection: Yes normal to inspection, No abdominal wall ecchymosis and No visible herniation Palpation (GI): Soft to palpation, nontender, no guarding, not rigid and No hepatosplenomegaly present Auscultation: normoactive bowel sounds General: Yes no CVA tenderness Back/Spine/Pelvis Back: no CVA tenderness and No back tenderness Cervical Spine: cervical ROM normal Thoracic/Lumbar Spine: thoracic and lumbar spine normal to inspection, straight leg raise negative bilaterally, No thoraco-lumbar ROM limited and No lumbar spinal tenderness Skin Lesions: no lesions Rashes: no rashes Wounds: no wounds Neuro General: oriented to person, oriented to place, patient oriented x3, CN's II-XI intact bilaterally and No confusion Cranial nerves: Yes Equal, round and reactive pupils present and Yes Normal acco mmodation reflex present Cognition (Neuro): normal cognition Speech: No Abnormal speech present Gait exam (Neuro): Normal gait present Motor exam (neuro): 5/5 motor strength present throughout Extrem Right upper extremity: full ROM; no cyanosis Left upper extremity: full ROM; no cyanosis Right lower extremity: no edema Left lower extremity: no edema Psych Appearance: grossly normal Mental Status: mental status grossly normal Affect: normal affect Attitude: cooperative Thought process: Normal thought process present Coding Level of Care Code Est Pt Prev Care 40-64y(45030) Diagnoses Annual physical exam Z00.00 Mild asthma without complication, unspecified whether persistent J45.909 Asthma complication type: uncomplicated Asthma persistence: unspecified Asthma severity: mild SHIRA (generalized anxiety disorder) F41.1 Pseudotumor cerebri G93.2 Additional Codes SHIRA-7 Assessment Billing - SHIRA-7 Assessment Tool: SHIRA-7 Assessment 68889 ([id number]) PHQ-9 - 94845 - PHQ-9 Billing: Yes ([id number]) Assessment & Plan Assessment & Plan (1) Annual physical exam: Code(s): Z00.00 - Encounter for general adult medical examination without abnormal findings Category: Medical Plan: As per HPI (2) Asthma: Code(s): J45.909 - Unspecified asthma, uncomplicated Category: Medical Qualifiers: Asthma complication type: uncomplicated Asthma persistence: unspecified Asthma severity: mild Qualified Code(s): J45.909 - Unspecified asthma, uncomplicated Plan: Patient reports her asthma is fairly well controlled with p.r.n. use of her albuterol inhaler. She denies any nighttime awakenings with asthma symptoms or recent asthma exacerbations. (3) SHIRA (generalized anxiety disorder): Code(s): F41.1 - Generalized anxiety disorder Category: Medical Plan: Patient's SHIRA-7 score 0 though does report having increased points of anxiety and panic. She is willing to start SSRI therapy on a daily basis. She also reports he will be traveling to [facility] and would like an as needed medication to help her with her anxiety about flights. (4) Pseudotumor cerebri: Code(s): G93.2 - Benign intracranial hypertension Category: Medical Plan: Patient does have a history of a pseudotumor cerebri noted on CT brain. She has been experiencing pain located in the posterior aspect of her head that radiates into her temporal regions. She does report a moderate daily headache. She continues with topiramate though does not seem to be helping reduce her headache. She did follow-up with the neurologist though would like a 2nd opinion about her continued head pain. Orders: Orders MR head/brain wo con 11/14/24 G93.2 - Benign intracranial hypertension PT Evaluation and Treatment 11/14/24 M54.2 - Cervicalgia Referrals Neurology Referral G93.2 - Benign intracranial hypertension Medications: New sertraline 25 mg PO DAILY 30 tabs 2RF 30 days F41.1 - Generalized anxiety disorder cholecalciferol (vitamin D3) 25 mcg PO DAILY 90 caps 1RF 90 days E55.9 - Yen min D deficiency, unspecified lorazepam FOR FLYING ONLY 0.5 mg PO DAILY PRN 4 tabs 0RF anxiety 4 days
[2024-11-14 13:41] VITALS: BP 124/74; PULSE 101; TEMP 36.3; O2SAT 97; BMI 27.1
--- OUTSIDE RECORDS SUMMARY | 2024-11-14 15:53 | XMS_ITS | Encounter Summary ---
Author Organization [facility] Address [address] [place] [address] Care Team Providers Care Reinsurance Accountant Name Role Phone Stephany Salinas MD Primary Care Provider Unava ilable Encounter Details Date Type Department Care Team Description 07/02/2016 Release of Information Medical Records [address] [place] [id number] Abstract, Provider Social History Tobacco Use Types [...] on filedocumented in this encounter Care Teams Reinsurance Accountant Relationship Specialty Start Date End Date Stephany Salinas MD PCP - General Internal Medicine 03/21/12 documented as of this encounter
--- OUTSIDE RECORDS SUMMARY | 2024-11-14 15:53 | XMS_ITS | Encounter Summary ---
Author Organization [facility] Address [address] [place] [address] Care Team Providers Care Weigher Production Name Role Phone Stephany Salinas MD Primary Care Provider Unava ilable Encounter Details Date Type Department Care Team Description 12/05/2017 Release of Information Medical Records [address] [place] [id number] Abstract, Provider Social History Tobacco Use Types [...] on filedocumented in this encounter Care Teams Weigher Production Relationship Specialty Start Date End Date Stephany Salinas MD PCP - General Internal Medicine 03/21/12 documented as of this encounter
--- OUTSIDE RECORDS SUMMARY | 2024-11-14 15:53 | XMS_ITS | Clinical Summary ---
Author Organization [employer] Address [address] [facility] [address] [place] [address] Care Team Providers Care Consulting Services Project Manager Name Role Phone Unavailable Primary Care Provider [...] 5 Years) and At-Risk Patients (6 to 49) Years) (1 of 2 - PCV) 1973 Alcohol/Substance Use Screening 1979 Tobacco Screening 1979 Hepatitis C Screening 1985 Hepatitis A Vaccines (1 of 2 - Risk 2-dose series) 1986 Pneumococcal Vaccine: 50+ Years (1 of 2 - PCV) 1986 Pap Smear 1988 Cervical Cancer Screening 1997 HPV/Cotest 1997 Mammogram 2007 Hepatitis B Vaccines (2 of 3 - 19+ 3-dose series) 2020 03/27/2020 Zoster Vaccines (2 of 2) 08/23/2023 06/28/2023 COVID-19 Vaccine (4 - 2023- season) 2024 10/30/2021, 01/07/2021, 12/11/2020 Influenza Vaccine [...]
--- OUTSIDE RECORDS SUMMARY | 2024-11-14 15:53 | XMS_ITS | Encounter Summary ---
Author Organization [facility] Address [address] [place] [address] Care Team Providers Care Orthopedics Pediatric Physician Name Role Phone Stephany Salinas MD Primary Care Provider Unaoctavio ilhodan Encounter Details Date Type Department Care Team Description 06/12/2013 Orders Only Podiatry - [place] [address] [place] [address] [id number] Dinesh White DPM Hammertoe (Primary Dx) Social History Tobacco Use Types Packs/Day Years Used Date Smoking Tobacco: Never Smokeless Tobacco: Never Alcohol Use Standard Drinks/Week Comments No 0 (1 standard drink = 0.6 oz pur e alcohol) Sex Assigned at Date Recorded Not on file documented as of this encounter Plan of Treatment Not on file documented as of this encounter Results * X-RAY EXAM OF FOOT, COMPLETE (3 VIEWS) (06/14/2013 10:00 AM EDT) 06/14/2013 10:1 2 AM EDT Impressions [facility] OTHER EXTERNAL - 06/14/2013 10:17 AM EDT IMPRESSION: No evidence of postoperative complications. Narrative [facility] OTHER EXTERNAL - 06/14/2013 10:17 AM EDT LEFT FOOT HISTORY: ??Followup post recent fifth toe arthroplasty. COMMENT: 3 views. The distal third of the fifth proximal phalanx and proximal third of the fifth middle phalanx are absent, consistent with surgical resection. The fifth proximal and middle phalanges are normally aligned. There is no evidence of postoperative complications. Otherwise no new findings are present compared with the previous exam on 12/04/12. Procedure Note Camron Hilario MD - 06/14/2013 LEFT FOOT HISTORY: Followup post recent fifth toe arthroplasty. COMMENT: 3 views. The distal third of the fifth proximal phalanx andproximal third of the fifth middle phalanx are absent, consistent with surgical resection. Thefifth proximal and middle phalanges are normally aligned. There is no evidence ofpostoperative complications. Otherwise no new findings are present compared with the previous exam on12/04/12. IMPRESSION: No evidence of postoperative complications. Dinesh White DPM RADIOLOGY [facility] OTHER EXTERNAL documented in this encounter Visit Diagnoses Diagnosis Hammertoe- Primary Other hammer toe (acquired) documented in this encounter Care Teams Orthopedics Pediatric Physician Relationship Specialty Start Date End Date Stephany Salinas MD PCP - General Internal Medicine 03/21/12 documented as of this encounter
--- OUTSIDE RECORDS SUMMARY | 2024-11-14 15:53 | XMS_ITS | Encounter Summary ---
Author Organization [facility] Address [address] [place] [address] Care Team Providers Care Paediatric Surgeon Name Role Phone Stephany Salinas MD Primary Care Provider Unava ilable Encounter Details Date Type Department Care Team Description 11/05/2016 Release of Information Medical Records [address] [place] [id number] Abstract, Provider Social History Tobacco Use Types [...] on filedocumented in this encounter Care Teams Paediatric Surgeon Relationship Specialty Start Date End Date Stephany Salinas MD PCP - General Internal Medicine 03/21/12 documented as of this encounter
--- OUTSIDE RECORDS SUMMARY | 2024-11-14 15:53 | XMS_ITS | Encounter Summary ---
Author Organization [facility] Address [address] [place] [address] Care Team Providers Care Escalator Constructor Name Role Phone Stephany Salinas MD Primary Care Provider Unava ilable Encounter Details Date Type Department Care Team Description 06/06/2013 [facility] Medical Records [address] [place] [id number] Dinesh White, DPM Social History Tobacco Use Types Packs/Day Years [...] on filedocumented in this encounter Care Teams Escalator Constructor Relationship Specialty Start Date End Date Stephany Salinas MD PCP - General Internal Medicine 03/21/12 documented as of this encounter
--- OUTSIDE RECORDS SUMMARY | 2024-11-14 15:53 | XMS_ITS | Patient Health Record ---
Author Organization [facility] Address [address] [place] [address] Care Team Providers Care Ultrasound Specialist Name Role Phone Stephany Salinas M.D. Primary Care Provider Landon Huff Unavailable [phone] Kenneth Tsang Unavailable Unavailable Allergies Allergen (clinical drug ingredient) Drug/Non Drug Allergy documented on EMR Reaction Allergy Type Onset Date Status acetaminophen / oxycodone Percocet Unknown Drug Allergy Active Reason For Referral No Information Medications Medication SIG (Take, Route, Frequency, Duration) Notes Start Date End Date Status Colyte w Flavor Packs 240 GM as directed Orally as directed for 1 day(s) 11/16/2014 Active MiraLax 1 1 capful in 8 ounces of water Orally QD-BID for constipation for 30 days 11/13/2014 Active Problems Problem Type SNOMED Code ICD Code Onset Dates Problem Status W/U Status Risk Notes Problem Generalized abdominal pain (598564365) Abdominal pain, generalized (789.07) Active confirmed Problem Constipation (92718184) Constipation (564.00) Active confirmed Problem Gastroesophageal reflux disease (926496926) GERD (gastroesophage al reflux disease) (530.81) Active confirmed Plan Of Treatment Future Test Test Name Order Date UPPER GI ENDOSCOPY 11/13/2014 COLONOSCOPY 11/13/2014 Insurance Providers Payer Name Payer Address Payer Phone Subscriber Number Group Number Insured Name Patient Relationship to Insured Coverage Start Date Coverage End Date [facility] [employer] [facility] [address] [address] [place], [place] [id number] JUSTA [id number] Self - patient is the insured Medical (General) History Medical History History ICD Code Denies ND,DM,CVA,renal disease Asthma Depression/Anxiety/Panic attacks Duodenal ulcer and GERD--EGD in [place]-H.pylori was treated--approx 2008--she had an upper endoscopy in [address] Tsang that describes some evidence of gastric retention but no evidence of any peptic ulcer disease nor inflammation. Incomplete colonoscopy due t o discomfort/pain during the procedure with Dr. Tsang in 10/2014 negative ultrasound of the a bdomen in 2011 and negative CAT scan of the abdomen and pelvis in August of 2012--she also had a CAT scan of the abdomen and pelvis in July of 2014 which was negative for any diverticulitis, colitis, nor any other significant pathology. Surgical History Surgery Date(Month/Year) CASSIUS--in approx 2005 BTL Cataracts
--- OUTSIDE RECORDS SUMMARY | 2024-11-14 15:53 | XMS_ITS | Encounter Summary ---
Author Organization [facility] Address [address] [place] [address] Care Team Providers Care Social Service Assistant Name Role Phone Stephany Salinas MD Primary Care Provider Unava ilable Encounter Details Date Type Department Care Team Description 01/03/2018 [facility] Medical Records [address] [place] [address] [place] [address] Social History Tobacco Use Types Packs/Day Years [...] on filedocumented in this encounter Care Teams Social Service Assistant Relationship Specialty Start Date End Date Stephany Salinas MD PCP - General Internal Medicine 03/21/12 documented as of this encounter
--- OUTSIDE RECORDS SUMMARY | 2024-11-14 15:53 | XMS_ITS | Encounter Summary ---
Author Organization [facility] Address [address] [place] [address] Care Team Providers Care Staffing Mgr Name Role Phone Stephany Salinas MD Primary Care Provider Unava ilable Encounter Details Date Type Department Care Team Description 12/29/2017 [facility] Medical Records [address] [place] [id number] Abstract, Provider Social History Tobacco Use Types [...] on filedocumented in this encounter Care Teams Staffing Mgr Relationship Specialty Start Date End Date Stephany Salinas MD PCP - General Internal Medicine 03/21/12 documented as of this encounter
== END 2024-11-14 14:25 | disposition home or self-care (01) ==
PROVIDERS: PCP Physician Assistant; Visit Provider Physician Assistant
DX: Z00.00 Encounter for general adult medical examination without abnormal findings (principal); J45.909 Unspecified asthma, uncomplicated; F41.1 Generalized anxiety disorder; G93.2 Benign intracranial hypertension

== ENCOUNTER → 2024-11-14 13:20 | Outpatient (BNVA) | payer OTHER, SELFPAY | PROVIDERS: PCP Physician Assistant; Visit Provider Physician Assistant | DX: Z00.00 Encounter for general adult medical examination without abnormal findings (principal); J45.909 Unspecified asthma, uncomplicated; F41.1 Generalized anxiety disorder; G93.2 Benign intracranial hypertension | CPT/HCPCS: 96127; 99396 ==

== ENCOUNTER 2024-12-24 15:19 | Outpatient (REF) | payer OTHER, SELFPAY ==
[2024-12-24 17:12] LABS: Hematocrit 36.7 % (37.0-47.0); Hemoglobin 12.4 g/dl (12.0-16.0); Mean Corpuscular HGB Conc 33.8 g/dl (31.0-35.0); Mean Corpuscular Hemoglobin 29.8 pg (27.0-33.0); Mean Corpuscular Volume 88.2 fL (80.0-98.0); Mean Platelet Volume 10.5 fL (9.4-12.3); Platelet Count 205 X10*3/uL (160-400); Red Blood Count 4.16 X10*6/uL (4.20-5.50); Red Cell Distribution Width 12.1 % (11.0-16.0); White Blood Count 6.3 X10*3/uL (4.8-10.8)
[2024-12-24 17:58] LABS: Alanine Aminotransferase 29 U/L (0-31); Albumin Level 4.4 g/dL (3.5-5.0); Alkaline Phosphatase 78 U/L (39-117); Anion Gap 9 (12-20); Aspartate Amino Transferase 24 U/L (5-31); Bilirubin Total 0.4 mg/dL (0.0-1.0); Blood Urea Nitrogen 17 mg/dL (9-16); Calcium 9.2 mg/dL (8.4-10.2); Carbon Dioxide 25 mmol/L (22-29); Chloride 109 mmol/L (96-108); Estimated Glomerular Filt Rate > 60; Glucose Fasting 103 mg/dL (60-99); Glucose Random 103 mg/dL (60-115); Potassium 3.4 mmol/L (3.3-5.1); Sodium 140 mmol/L (135-145); Total Protein 7.2 g/dL (6.5-8.0)
[2024-12-24 18:15] LABS: Vitamin D 25-OH Total 43.2 ng/mL (>30)
--- OUTSIDE RECORDS SUMMARY | 2024-12-24 18:22 | XMS_ITS | Clinical Summary ---
Author Organization [employer] Address [address] [facility] [address] [place] [address] Care Team Providers Care Party Demonstrator Name Role Phone Unavailable Primary Care Provider [...]
== END 2024-12-24 15:20 | disposition home or self-care (01) ==
LOC: HO.LAB 15:19
PROVIDERS: PCP Physician Assistant; Visit Provider Physician Assistant
DX: J45.909 Unspecified asthma, uncomplicated (principal); E55.9 Vitamin D deficiency, unspecified; K21.9 Gastro-esophageal reflux disease without esophagitis; Z91.09 Other allergy status, other than to drugs and biological substances; Z13.1 Encounter for screening for diabetes mellitus
CPT/HCPCS: 36415; 80053; 82306; 85027; 96160; 99212

== ENCOUNTER → 2024-12-24 15:19 | Outpatient (AMB) | payer OTHER, SELFPAY ==
--- NOTE | 2024-12-24 15:33 | MHC.PC.OV ---
Vital Signs 12/24/24 15:38 Height 5 ft 1 in Weight 140 lb 6 oz BMI 26.5 BP 124/76 Blood Pressure Location Lt brachial Position Sitting Pulse 78 Pulse Source Pulse Oximeter Temp 97.3 F Temp Source Temporal Artery Scan Pulse Oximetry (%) 99 Oxygen Delivery Method Room Air Intake Visit Reasons: f/u Anxiety Sack Cleaning Hand Required: Yes Sack Cleaning Hand Language: Trial Manager Name: used [id number] Accompanied by: Self / Same As Patient Allergies oxycodone [From PERCOCET] Allergy (Intermediate, Verified 12/24/24 15:52) VOMITING/DIZZINESS tramadol [TRAMADOL] Allergy (Intermediate, Verified 12/24/24 15:52) DIZZINESS Medication List - Last Reconciled 12/24/24 by Fahad Bee PA-C albuterol sulfate 90 mcg/actuation 2 puffs inhalation Q6H PRN 30 days cetirizine (Allergy Relief (cetirizine)) 10 mg PO DAILY 30 days cholecalciferol (vitamin D3) 25 mcg PO DAILY 90 days cyclobenzaprine 10 mg PO BID 30 days diclofenac sodium 1% (Voltaren Arthritis Pain) 2 grams topical QID 30 days docusate sodium 50 mg PO DAILY esomeprazole magnesium (Nexium) 40 mg PO DAILY fluticasone propionate 50 mcg/actuation 1 spray intranasal DAILY 30 days gabapentin 300 mg PO TID 30 days lorazepam 0.5 mg PO DAILY PRN 4 days midodrine 5 mg PO BID 30 days olopatadine 0.2% (Pataday Once Daily Relief) 1 drp ophthalmic (eye) DAILY 30 days polyethylene glycol 3350 (Miralax) 17 grams PO DAILY 4 days sertraline 25 mg PO DAILY 30 days topiramate 50 mg PO DAILY Tobacco use date assessed: 11/14/24 Dental Screening Dental Screen Date: 11/14/24 HPI f/u Anxiety HPI Details Patient is a 59-year-old female here today for follow-up visit. Patient has a past medical history significant for anxiety. Patient reports having hoarseness and weakness. Her symptoms started two weeks ago, with initial suspicion of a mild illness, leading her to try honey as a remedy. She denies any consistent illness-related symptoms such as sore throat or typical cold signs. The hoarseness varies without clear patterns, and weakness persists, although she does not feel typically unwell. Historically, the patient does not mention any diagnosed allergies, but conditions possibly related to asthma were discussed. Her use of a nasal spray has been daily, but it was recommended she might trial discontinuing it to reevaluate its role in her symptoms. [facility] Medical History Acid reflux NAFLD (nonalcoholic fatty liver disease) Abdominal pain Surgical History H/O colonoscopy History of breast biopsy History of toe surgery History of hysterectomy History of thumb surgery History of carpal tunnel surgery of right wrist History of carpal tunnel surgery of left wrist Family History Father COPD (chronic obstructive pulmonary disease) Smoker Maternal Aunt Hypertension Sister Breast cancer Mother Hypertension Social History Household Members: Children Housing: Apartment Alcohol intake: never Patient Tobacco Use Status: Never used Tobacco e-Cigarette/Vaping Use: Never Used Second Hand Smoke Exposure: Yes service: No Current occupational status: unemployed 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 Landon Beltre, Khadra Tinajero, Robbi Baker and colleagues, with an educational floridalma from [employer]. ACT Questionnaire In the past 4 weeks, how much of the time did your asthma keep you from getting as much done at work, school or at home?: None of the time During the past 4 weeks, how often have you had shortness of breath?: Not at all During the past 4 weeks, how often did your asthma symptoms wake you up at night or earlier than usual in the morning?: Not at all During the past 4 weeks, how often have you had to use your rescue inhaler or nebulizer medication?: Not at all How would you rate your asthma control during the past 4 weeks?: Completely controlled ACT Interpretation: Negative Score: 25 Review of Systems Const Denies headache(s) Eyes Denies loss of vision ENT Denies vertigo, Denies dizziness, Denies headache(s) and Denies sore throat Card Denies chest pain, Denies leg edema and Denies lightheadedness Resp Denies cough, Denies hemoptysis and Denies wheezing GI Denies abdominal pain, Denies melena, Denies constipation, Denies diarrhea and Denies vomiting Denies urinary frequency, Denies dysuria and Denies urinary urgency Musc Denies arthralgias, Denies joint swelling, Denies numbness and Denies tingling Neuro Denies Abnormal speech present, Denies behavioral changes, Denies vertigo, Denies dizziness, Denies headache(s), Denies loss of vision, Denies memory loss, Denies numbness and Denies tingling Psych Denies anxiety, Denies behavioral changes, Denies depression, Denies memory loss and Denies panic attacks Gorge/Lymph Denies easy bleeding and Denies easy bruising Aller/Immun Denies wheezing Physical exam (Primary Care) Vital Signs: Last Vital Signs Temp 97.3 F 12/24/24 15:38 Pulse 78 12/24/24 15:38 BP 124/76 12/24/24 15:38 Pulse Ox 99 12/24/24 15:38 Oxygen Delivery Method Room Air 12/24/24 15:38 BMI result Body Mass Index 26.5 Tobacco/Smoking Status: Tobacco use Status Tobacco use date assessed 11/14/24 12/24/24 15:33 Patient Tobacco Use Status Never used Tobacco 12/24/24 15:33 e-Cigarette/Vaping Use Never Used 12/24/24 15:33 Thrive Assessment: Date of Thrive Assessment Date Thrive assessed 11/14/24 12/24/24 15:33 Const General: healthy appearing, no acute distress, alert and awake Nutritional Appearance: well nourished Orientation/consciousness: oriented to person, oriented to place and oriented to time HENMT Ears: TM's normal bilaterally General nose exam: Normal nasal mucous membranes and turbinates present Eyes Conjunctivae: conjunctivae normal Sclerae: sclerae normal Pupils: Equal, round and reactive pupils present Neck Neck: Yes no lymphadenopathy and Yes no JVD Thyroid: Thyroid normal Carotids: no bruits Resp Effort & Inspection: normal respiratory effort and not tachypneic Auscultation: no crackles, no rales, no rhonchi and no wheezes Cardio Rate: regular rate Rhythm: regular rhythm Heart sounds: no murmurs and normal S1 and S2 GI Palpation (GI): Soft to palpation, nontender, no hepatomegaly and no splenomegaly Auscultation: normal bowel sounds Skin General skin exam: no rashes or lesions noted and dry skin Neuro General: oriented to person, oriented to place and oriented to time Cranial nerves: Yes Equal, round and reactive pupils present Speech: No Abnormal speech present Gait exam (Neuro): Normal gait present Motor exam (neuro): no tremor noted Extrem Right upper extremity: full ROM Left upper extremity: full ROM Right lower extremity: full ROM; no edema Left lower extremity: full ROM; no edema Psych Mental Status: mental status grossly normal Speech and movement: Normal speech and movement present Affect: normal affect Attitude: cooperative Thought process: Normal thought process present Coding Level of Care Code Est Pt Level 4 (45293) Diagnoses Mild asthma without complication, unspecified whether persistent J45.909 Asthma complication type: uncomplicated Asthma persistence: unspecified Asthma severity: mild Environmental allergies Z91.09 Additional Codes Asthma Control Questionnaire - ACT Interpretation: Negative ([id number]) Assessment & Plan Assessment & Plan (1) Asthma: Code(s): J45.909 - Unspecified asthma, uncomplicated Category: Medical Qualifiers: Asthma complication type: uncomplicated Asthma persistence: unspecified Asthma severity: mild Qualified Code(s): J45.909 - Unspecified asthma, uncomplicated Plan: Patient reports her asthma is fairly well controlled with p.r.n. use of her albuterol inhaler. She denies any nighttime awakenings with asthma symptoms or recent asthma exacerbations. (2) Environmental allergies: Code(s): Z91.09 - Other allergy status, other than to drugs and biological substances Category: Medical Plan: Hoarseness may be due to potential allergies affecting the throat. Recommended stopping nasal spray to assess symptom mitigation and initiated new oral allergy medication (montelukast). Orders: Orders Comprehensive Met. Panel 12/24/24 J45.909 - Unspecified asthma, uncomplicated MM screening mammo BI 12/24/24 Z12.31 - Encounter for screening mammogram for malignant neoplasm of breast Vitamin D 25-OH Total 12/24/24 E55.9 - Vitamin D deficiency, unspecified Complete Blood Count no Diff 12/24/24 J45.909 - Unspecified asthma, uncomplicated Medications: New montelukast 10 mg PO DAILY 30 tabs 1RF 30 days J45.909 - Unspecified asthma, uncomplicated Refilled albuterol sulfate 90 mcg/actuation 2 puffs inhalation Q6H PRN 8.5 grams 3RF shortness of breath or wheezing 30 days J45.909 - Unspecified asthma, uncomplicated Discontinued cetirizine (Allergy Relief (cetirizine)) Discontinued Reason: Doctor's Order 10 mg PO DAILY 30 days 30 caps 6RF allergy symptoms J30.9 - Allergic rhinitis, unspecified
[2024-12-24 15:38] VITALS: BP 124/76; PULSE 78; TEMP 36.3; O2SAT 99; BMI 26.5
--- OUTSIDE RECORDS SUMMARY | 2024-12-24 17:47 | XMS_ITS | Clinical Summary ---
Author Organization [employer] Address [address] [place] [address] Care Team Providers Care Medical Chief Technician Name Role Phone Unavailable Primary Care Provider [...]
== END ==
LOC: HO.HMCH 15:20
PROVIDERS: PCP Physician Assistant; Visit Provider Physician Assistant
DX: J45.909 Unspecified asthma, uncomplicated (principal); Z91.09 Other allergy status, other than to drugs and biological substances

== ENCOUNTER 2025-03-13 14:26 | Outpatient (AMB) | payer OTHER, SELFPAY ==
--- NOTE | 2025-03-13 14:41 | MHC.OFFVIS ---
Vital Signs 03/13/25 14:42 Height 5 ft 1 in Weight 142 lb BMI 26.8 BP 116/74 Blood Pressure Location Rt brachial Position Sitting Pulse 68 Pulse Source Pulse Oximeter Pulse Oximetry (%) 98 Oxygen Delivery Method Room Air Intake Visit Reasons: Epigastric Pain Intake Note: ESTABLISHED PATIENT for mgmt of GERD w/ abd pain. Labs and Imaging done. Chief Complaint; Pt does have concerns and questions from last visit that she would like to discuss with Janny. However, she does not feel comfortable disclosing this with the MA at this time. Pt does confirm that she is at least moving her bowels OK. Simulation Educator Required: Yes Simulation Educator Services: Simulation Educator Present Simulation Educator Name: VOICE ONLY. [phone] Mary. Information Interpreted: clinical only Accompanied by: Self / Same As Patient Allergies oxycodone (From PERCOCET) Allergy (Intermediate, Verified 03/13/25 14:42) VOMITING/DIZZINESS tramadol (TRAMADOL) Allergy (Intermediate, Verified 03/13/25 14:42) DIZZINESS HPI HPI Epigastric Pain: Details: LAST VISIT: 08/30/2024 Epigastric pain Acid reflux LLQ abdominal pain NAFLD (nonalcoholic fatty liver disease) Abdominal pain Plan Patient will stop pantoprazole and will start in esomeprazole 40 mg daily. Avoid dietary triggers and late night snacking. Staying upright for minimum 3 hours after meals discussed with patient. Will check lipase, thyroid study, liver panel, vitamin B12, folate, vitamin-D levels. Will rule out celiac. Patient will be sent for limited ultrasound to evaluate the liver, diagnosed with NAFLD. Patient was encouraged to increase fluid intake and activity to promote better bowel motility. Patient will return to the office in 3 months. She will call us if she will have worsening symptoms or any new GI concerning symptoms. Patient is agreeable to current plan of care and verbalizes understanding of instructions. She was given the opportunity to ask questions and all questions answered. ? Thank you for allowing me to participate in her care Orders TSH reflex Free T4 Today K59.00 Vitamin B12 and Folate Today R19.7 Liver Panel Today R74.01 US abdomen limited Today R79.89 Transglutaminase IgA Today R10.9 Vitamin D 25-OH (D2 and D3) Today E55.9 Lipase Today R10.9 New esomeprazole magnesium (Nexium) 40 mg PO DAILY 30 caps 5RF K21.9 Discontinued metoclopramide HCl (Reglan) Discontinued Reason: Patient no longer taking 10 mg PO Q6H PRN 14 tabs 0RF nausea and vomiting sucralfate (Carafate) Discontinued Reason: Patient no longer taking 1 g PO BID 2 weeks 28 tabs 0RF ibuprofen Discontinued Reason: Patient no longer taking 600 mg PO Q6H PRN 30 tabs 0RF fever or pain TODAY'S VISIT Patient is here today for follow-up. Patient reports that she is moving her bowels better now. Patient is eating fruits and drinking fluids. Denies melena, hematochezia, unintentional weight loss or ribbon like stools. Patient however reports epigastric pain and bloating. Patient denies nausea or vomiting. Denies dyspepsia, dysphagia or odynophagia. Abdominal ultrasound shows fatty infiltration of the liver otherwise normal ultrasound. Liver enzymes have normalized drawn in December. Patient denies any other GI concerning symptoms. Patient is currently taking Nexium every morning half an hour before breakfast. Patient reports that her symptoms of epigastric pain and abdominal bloating happen towards the end of the day not necessarily meal related. PFSH Medical History Acid reflux NAFLD (nonalcoholic fatty liver disease) Abdominal pain Surgical History H/O colonoscopy History of breast biopsy History of toe surgery History of hysterectomy History of thumb surgery History of carpal tunnel surgery of right wrist History of carpal tunnel surgery of left wrist Family History Father COPD (chronic obstructive pulmonary disease) Smoker Maternal Aunt Hypertension Sister Breast cancer Mother Hypertension Social History Household Members: Children Housing: Apartment Alcohol intake: never Patient Tobacco Use Status: Never used Tobacco e-Cigarette/Vaping Use: Never Used Second Hand Smoke Exposure: Yes service: No Current occupational status: unemployed 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 Cognitive needs: No Hearing needs: No Vision needs: Yes Review of Systems Const Denies weight gain and Denies weight loss ENT Reports no additional complaints, Denies dysphagia and Denies odynophagia Card Reports no additional complaints Resp Reports no additional complaints GI Reports abdominal pain (LUQ, RUQ), Denies belching, Denies melena, Reports bloating, Denies change in bowel habits, Reports constipation (Occasional), Denies dysphagia, Denies excessive flatus, Reports dyspepsia, Reports heartburn, Denies diarrhea, Denies loose stools, Denies nausea, Denies odynophagia and Denies vomiting Reports no additional complaints Musc Reports no additional complaints Neuro Reports no additional complaints Psych Reports no additional complaints Endo Reports no additional complaints Physical Exam Vital Signs: Last Vital Signs Pulse 68 03/13/25 14:42 BP 116/74 03/13/25 14:42 Pulse Ox 98 03/13/25 14:42 Oxygen Delivery Method Room Air 03/13/25 14:42 BMI result Body Mass Index 26.8 Const General: healthy appearing, no acute distress and well developed Nutritional Appearance: well nourished Orientation/consciousness: patient oriented x3 Resp Effort & Inspection: normal respiratory effort, able to speak in complete sentences, no tracheal deviation and symmetric chest movement Auscultation: clear to auscultation bilaterally Cardio Rate: regular rate GI Inspection: Yes normal to inspection and No distended Palpation (GI): Soft to palpation, not firm, nontender and No hepatosplenomegaly present Auscultation: normal bowel sounds General: Yes no CVA tenderness Back/Spine/Pelvis Back: no CVA tenderness Skin General skin exam: elasticity normal, turgor normal and dry skin Neuro General: patient oriented x3 Psych Appearance: grossly normal Mental Status: mental status grossly normal Results Reviewed Results Reviewed: Laboratory Tests 08/30/24 12/24/24 14:55 16:21 Total Bilirubin 0.3 0.4 AST 30 24 ALT 44 H 29 Lipase 19 Vitamin B12 432 25-OH Vitamin D Total 24 L 43.2 Folate 14.2 TSH 1.54 Tiss Transglutamin IgA <1.0 ABDOMINAL US Findings: Fatty infiltration of the liver. Right lobe: 11.0 cm. Increased fatty infiltration noted along falciform ligament. This does not appear to represent a true focal lesion. Visualized pancreas unremarkable. Gallbladder unremarkable without stones or wall thickening. Common duct 4.4 mm diameter. No ultrasonographic Cagle sign. Right kidney normal, 9.8 cm in length. Impression: Fatty infiltration of the liver Otherwise unremarkable Assessment & Plan Assessment & Plan (1) Acid reflux: Code(s): K21.9 - Gastro-esophageal reflux disease without esophagitis Category: Medical Qualifiers: Esophagitis presence: esophagitis presence not specified Qualified Code(s): K21.9 - Gastro-esophageal reflux disease without esophagitis (2) NAFLD (nonalcoholic fatty liver disease): Code(s): K76.0 - Fatty (change of) liver, not elsewhere classified Category: Medical (3) Abdominal pain: Code(s): R10.9 - Unspecified abdominal pain Category: Medical Qualifiers: Abdominal location: left upper quadrant Qualified Code(s): R10.12 - Left upper quadrant pain Plan Patient will be sent for upper GI with barium swallow continue Nexium. Avoid dietary triggers in late night snacking. Discussed with patient the importance of staying upright for minimal 3 hours after meals. Low FODMAP diet discussed with patient as well. List of food the recommended as well as list of food to avoid given to patient. Patient to follow-up in the office in 2-3 months, sooner on as needed basis. She is agreeable to this plan and verbalizes understanding of instructions. She was given the opportunity to ask questions and all questions answered. Thank you for allowing me to participate in her care Orders: Orders FL upper GI w Ba Swallow Today K21.9 - Gastro-esophageal reflux disease without esophagitis Coding Level of Care Code Est Pt Level 3 (41405) Diagnoses Gastroesophageal reflux disease, unspecified whether esophagitis present K21.9 Esophagitis presence: esophagitis presence not specified NAFLD (nonalcoholic fatty liver disease) K76.0 Left upper quadrant abdominal pain R10.12 Abdominal location: left upper quadrant Time Spent (min) 30 Comment 20 minutes spent with patient and additional 10 minutes spent reviewing her records
[2025-03-13 14:42] VITALS: BP 116/74; PULSE 68; O2SAT 98; BMI 26.8
--- OUTSIDE RECORDS SUMMARY | 2025-03-13 14:58 | XMS_ITS | Clinical Summary ---
Author Organization [employer] Address [address] [facility] [address] [place] [address] Care Team Providers Care Apricot Washer Name Role Phone Unavailable Primary Care Provider Unavailabl e Immunizations Immunization Administration Dates Next Due Hep B, adult [...] Screening 1967 SDOH Screening 1967 Sigmoidoscopy 1967 Disability Screening 1967 Alcohol/Substance Use Screening 1979 Tobacco Screening 1979 [...] season) 2024 10/30/2021, 01/07/2021, 12/11/2020 Influenza Vaccine (Season Ended) 2025 06/28/2023, 07/10/2020, 05/27/2016, Additional history exists DTaP/Tdap/Td Vaccines [...] patient's age to complete this topic Meningococcal B Vaccine Aged Out No l onger eligible based on patient's age to complete [...]
== END 2025-03-13 15:27 | disposition home or self-care (01) ==
LOC: HO.HGI 14:26
PROVIDERS: PCP Physician Assistant; Visit Provider Nurse Practitioner Family
DX: K21.9 Gastro-esophageal reflux disease without esophagitis (principal); K76.0 Fatty (change of) liver, not elsewhere classified; R10.12 Left upper quadrant pain
CPT/HCPCS: 99213

== ENCOUNTER → 2025-03-13 14:26 | Outpatient (BNVA) | payer OTHER, SELFPAY | PROVIDERS: PCP Physician Assistant; Visit Provider Nurse Practitioner Family | DX: K21.9 Gastro-esophageal reflux disease without esophagitis (principal); K76.0 Fatty (change of) liver, not elsewhere classified; R10.12 Left upper quadrant pain | CPT/HCPCS: 99212 ==

== ENCOUNTER 2025-05-03 12:27 | Outpatient (REF) | payer OTHER, SELFPAY ==
--- NOTE | ~2025-05-03 | MM_ITS ---
EXAMINATION: MM SCREENING DIGITAL BREAST TOMOSYNTHESIS, BILATERAL CLINICAL INFORMATION: Screening. Asymptomatic. Family history of breast cancer including mother and sister. COMPARISON: Mammography: Comparison is made with available priors TECHNIQUE: Digital breast mammography with tomosynthesis is performed in both the craniocaudal and mediolateral oblique views along with computer-aided detection (CAD). FINDINGS: There are scattered areas of fibroglandular density (ACR BI-RADS breast composition Category b). Left: Circumscribed oval mass upper central breast is larger and slightly denser from priors previously identified to be a simple cyst, ultrasound at this time is recommended to confirm. No suspicious calcifications or other abnormal findings. Right: Marker clip. There are no significant masses, abnormal calcifications, or other abnormalities. MM/MM tomosynthesis screening BI IMPRESSION: Additional imaging is recommended ASSESSMENT: BI-RADS BI-RADS 0 - Incomplete: Needs additional Imaging. RECOMMENDATION: 1. Additional views of the right breast with ultrasound at this time patient has a strong family history of breast cancer including mother and sister. 2. Radiology department staff will contact the patient for additional imaging. Additional Imaging required Patient has a strong family history of breast cancer including mother and sister. Yearly breast MRI screening surveillance is recommended for further evaluation. Breast MRI would need to be ordered by the patient's providing clinician. This examination should not preclude the clinical evaluation of a suspicious palpable abnormality. This patient's information was entered into a reminder system with a target due date for their next mammogram. Electronically signed by: María Massey DO 05/07/2025 12:59 PM EDT
--- OUTSIDE RECORDS SUMMARY | 2025-05-03 12:29 | XMS_ITS | Clinical Summary ---
Author Organization [employer] Address [address] [facility] [address] [place] [address] Care Team Providers Care Display Department Manager Name Role Phone Unavailable Primary Care [...] 2024 10/30/2021, 01/07/2021, 12/11/2020 Influenza Vaccine (#1) 2025 3, 07/10/2020, 05/27/2016, Additional history exists DTaP/Tdap/Td Vaccines [...]
== END 2025-05-03 12:28 | disposition home or self-care (01) ==
LOC: HO.MAMMO 12:27
PROVIDERS: PCP Physician Assistant; Visit Provider Physician Assistant
DX: Z12.31 Encounter for screening mammogram for malignant neoplasm of breast (principal)
CPT/HCPCS: 77063; 77067

== ENCOUNTER → 2025-05-03 13:00 | Outpatient (BNV) | payer OTHER, SELFPAY | PROVIDERS: PCP Physician Assistant; Visit Provider Internal Medicine | DX: Z12.31 Encounter for screening mammogram for malignant neoplasm of breast (principal) | CPT/HCPCS: 77063; 77067 ==

== ENCOUNTER 2025-05-06 07:19 | Outpatient (REF) | payer OTHER, SELFPAY ==
--- NOTE | ~2025-05-06 | FL_ITS ---
EXAMINATION: XR UPPER GI SERIES WITH barium swallow CLINICAL INFORMATION: Gastroesophageal reflux disease without esophagitis COMPARISON: None available. TECHNIQUE: Routine upper GI air contrast study was performed with barium swallow. FINDINGS: Following oral administration of saltine crackers coated with barium there is normal oral mastication propagation of solid food from the oral cavity through the pharynx , esophagus into stomach without any evidence of obstruction, narrowing or stricture. On oral administration of thick barium and effervescent granules in upright view and different projections there is normal propagation of bolus from the oral cavity through the pharynx, esophagus into stomach. No obstruction, narrowing or stricture seen. On placing patient supine and prone lying the course, caliber and peristalsis of the stomach, duodenal bulb and the sweep is normal. The mucosal pattern of the stomach, duodenal bulb and sweep is normal. There are increased gastric secretions. There is moderate sized gastroesophageal reflux without hiatal hernia.. FLUOROSCOPY TIME: 2 minute 14 seconds DOSE AREA PRODUCT: 1548 uGy-m2 (microgray-meter squared) FL/FL upper GI w air w Ba Swallow IMPRESSION: Increased gastric secretions suggestive of hyper acidity. Moderate size mediastinal reflux without hiatal hernia. Electronically signed by: Kristofer Mcdowell MD 05/06/2025 09:55 AM EDT
--- OUTSIDE RECORDS SUMMARY | 2025-05-06 07:22 | XMS_ITS | Clinical Summary ---
Author Organization [employer] Address [address] [facility] [address] [place] [address] Care Team Providers Care Client Services Account Manager Name Role Phone Unavailable Primary Care [...]
== END 2025-05-06 07:20 | disposition home or self-care (01) ==
LOC: HO.XRAY 07:19
PROVIDERS: PCP Physician Assistant; Visit Provider Nurse Practitioner Family
DX: K21.9 Gastro-esophageal reflux disease without esophagitis (principal)
CPT/HCPCS: 74246

== ENCOUNTER → 2025-05-06 07:22 | Outpatient (BNV) | payer OTHER, SELFPAY | PROVIDERS: PCP Physician Assistant; Visit Provider Radiology Diagnostic Radiology | DX: K21.9 Gastro-esophageal reflux disease without esophagitis (principal) | CPT/HCPCS: 74246 ==

== ENCOUNTER 2025-05-08 07:12 | Emergency (ER) | payer OTHER, SELFPAY ==
[2025-05-08 07:31] VITALS: BP 152/74; PULSE 86; RESP 18; TEMP 36.2; O2SAT 98; BMI 26.7
--- NOTE | 2025-05-08 07:42 | PC.NURSE ---
mechanical artist services Jimy Yanes- [phone]
--- NOTE | 2025-05-08 08:05 | PC.NURSE ---
Pt Roomed to delgado bed. VSS ambulates well without assist. States pain lower back, took ibuprofen yesterday.
[2025-05-08 08:07] VITALS: BP 150/80; PULSE 78; RESP 16; TEMP 35.9; O2SAT 96
--- OUTSIDE RECORDS SUMMARY | 2025-05-08 08:41 | XMS_ITS | Clinical Summary ---
Author Organization [employer] Address [address] [facility] [address] [place] [address] Care Team Providers Care It Desktop Support Specialist Name Role Phone Unavailable Primary Care Provider [...]
--- OUTSIDE RECORDS SUMMARY | 2025-05-08 08:41 | XMS_ITS | Patient Health Record ---
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 Primary Care Provider Landon Huff Unavailable [phone] Kenneth Tsang Unavailable Unavailable Allergies Allergen (clinical [...] Status Risk Notes Problem Generalized abdominal pain (830409965) Abdominal pain, generalized (789.07) Active confirmed Problem Constipation (59612507) Constipation (564.00) Active confirmed Problem Gastroesophageal reflux disease (868978033) GERD (gastroesophage al reflux disease) (530.81) Active confirmed Plan Of Treatment Future Test Test Name Order Date UPPER GI ENDOSCOPY 11/13/2014 COLONOSCOPY 11/13/2014 Insurance Providers Payer Name Payer Address Payer Phone Subscriber Number Group Number Insured Name Patient Relationship to Insured Coverage Start Date Coverage End Date [facility] [employer] [facility] [address] [address] [place], [place] [phone] [id number] JUSTA RUVALCABA Self - patient is the insured Medical (General) History Medical History History ICD Code Denies NC,DM,CVA,renal disease Asthma Depression/Anxiety/Panic attacks Duodenal ulcer and GERD--EGD in [place]-H.pylori was treated--approx 2008--she had an upper endoscopy [...]
--- NOTE | 2025-05-08 09:28 | ED_ITS ---
HPI - Back Pain/Injury General Chief Complaint: Back Pain/Injury Stated Complaint: Low Back Pain Time Seen by Provider: 05/08/25 09:05 Source: patient, RN notes reviewed and old records reviewed Mode of arrival: ambulatory Limitations: no limitations History of Present Illness ED Provider: Leah Garcia PA-C HPI Narrative: 60 yo F with PMHx of GERD, NAFLD, and fibromyalgia presents to ED due to 2 weeks of lumbar back pain that radiates down R anterior thigh. Patient states she was sitting with a patient at work where she works as a [employer] and felt some discomfort and aching in her right lumbar back. Patient states the aching travels down to the right anterior thigh, and feel a pulsating sensation in her rectal area. Patient states she took ibuprofen last night with no effect. Denies fall/injury, saddle anesthesia, bowel/bladder incontinence. Patient states she has follow up with her PCP on 05/20/2025. Related Data Home Medications ?Medication ?Instructions ?Recorded ?Confirmed topiramate 50 mg tablet 50 mg PO DAILY 12/24/2412/11 cetirizine 10 mg tablet 10 mg PO DAILY PRN allergies 03/13/25 Previous Rx's ?Medication ?Instructions ?Recorded cyclobenzaprine 10 mg tablet 10 mg PO BID muscle spasm 30 days 05/21/24 #60 tabs diclofenac sodium 1 % topical gel 2 g topical QID 30 d ays #100 grams 05/21/24 (Voltaren Arthritis Pain) fluticasone propionate 50 1 spray intranasal DAILY 30 days 05/21/24 mcg/actuation nasal #16 grams spray,suspension gabapentin 300 mg capsule 300 mg PO TID 30 days #90 ca ps 05/21/24 midodrine 5 mg tablet 5 mg PO BID 30 days #60 tabs 05/21/24 olopatadine 0.2 % eye drops 1 drp ophthalmic (eye) DOMINIQUE LY 30 05/21/24 (Pataday Once Daily Relief) days #2.5 mL docusate sodium 50 mg capsule 50 mg PO DAILY #10 caps 08/24/24 cholecalciferol (vitamin D3) 25 25 mcg PO DAILY 90 day s #90 caps 11/14/24 mcg (1,000 unit) capsule lorazepam 0.5 mg tablet 0.5 mg PO DAILY PRN anxiety 4 days 11/14/24 #4 tabs sertraline 25 mg tablet 25 mg PO DAILY 30 days #30 t abs 11/14/24 esomeprazole magnesium 40 mg 40 mg PO DAILY #30 caps 0 12/11/24 capsule,delayed release (Nexium) albuterol sulfate 90 mcg/actuation 2 puff inhalation Q 6H PRN 12/24/24 aerosol inhaler shortness of breath or wheez ing 30 days #8.5 grams montelukast 10 mg tablet 10 mg PO DAILY 30 days #30 t abs 12/24/24 prednisone 20 mg tablet 40 mg (2 x 20 mg) PO DAILY # 10 tabs 05/08/25 Allergies Allergy/AdvReac Type Severity Reaction Status Date / Time oxycodone (From PERCOCET) Allergy Intermediate VOMITING/DI Verified 05/08/25 07:38 ZZINESS tramadol (TRAMADOL) Allergy Intermediate DIZZINESS Verified 05/08/25 07:38 Review of Systems Review of Systems: CONST: Negative for fever, body aches and chills. HENT: Negative for neck pain/stiffness, headache, congestion, sore throat, swelling. EYES: Negative for discharge/pain or vision changes. RESP: Negative for cough/hemoptysis and shortness of breath. CV: Negative chest pain, difficulty breathing, palpitations. ABD: Negative pain, nausea, vomiting. : Negative increase frequency, dysuria, blood in urine or stool. MUSC: Negative for muscle aches, edema. R side lumbar radiculopathy to anterior R thigh SKIN: Negative rash, lesions/sores. NEURO: Negative headache, dizziness, weakness. Yes all other systems are reviewed and are negative PMFSH Past Medical History Medical History Acid reflux NAFLD (nonalcoholic fatty liver disease) Abdominal pain Surgical History H/O colonoscopy History of breast biopsy History of toe surgery History of hysterectomy History of thumb surgery History of carpal tunnel surgery of right wrist History of carpal tunnel surgery of left wrist Family History Family History Father COPD (chronic obstructive pulmonary disease) Smoker Maternal Aunt Hypertension Sister Breast cancer Mother Hypertension Social History Social History (Reviewed 03/13/25 @ 14:41 by Juan Daniel Menchaca [facility] Household Members: Children Housing: Apartment Alcohol intake: never Patient Tobacco Use Status: Never used Tobacco Smoked in Last 30 Days: No e-Cigarette/Vaping Use: Never Used Second Hand Smoke Exposure: Yes Use of substances other than those prescribed or required for medical reasons: No Advance Directives: No Advance Directives Information Provided: Yes Do you have a plan to hurt others: No Plan service: No Current occupational status: unemployed 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 HEENT: ?NC, AT. MMM. EOMI, clear conjunctiva, oropharynx clear. NECK: ?Supple without lymphadenopathy.? No stiffness or restricted ROM. HEART:? Normal rate and regular rhythm, normal S1/S2, no m/r/g LUNGS:? CTAB, moving air well. No crackles or wheezes are heard. ABDOMEN: ?Soft, nontender, nondistended with good bowel sounds heard. BACK: No CVAT, no obvious deformity. TTP of R side lumbar paraspinal muscles, SI joint, positive R straight leg test, strength 5/5 bilaterally, SILT, no overlying skin changes EXTREMITIES: ?Without cyanosis, clubbing or edema. NEUROLOGICAL: ?Grossly nonfocal. Alert and oriented, moving all 4 extremities. Observed to ambulate with normal gait. Skin: ?Warm and dry without any rash. Medications Administered Discontinued Medications Generic Name Dose Route Start Last Admin Trade Name Adriaq PRN Reason Stop Dose Admin Acetaminophen 975 mg 05/08/25 09:41 05/08/25 10:07 Acetaminophen 325 Mg Tablet PO 05/08/25 09:42 975 mg ONCE ONE Administration Ketorolac Tromethamine 30 mg 05/08/25 09:41 05/08/25 10:06 Ketorolac Tromethamine 30 Mg/Ml Vial IM 05/08/25 09:42 30 mg ONCE ONE Administration Prednisone 40 mg 05/08/25 09:41 05/08/25 10:07 Prednisone 20 Mg Tablet PO 05/08/25 09:42 40 mg ONCE ONE Administration Medical Decision Making Medical Decision Making [facility] Narrative: 60 yo F with PMHx of GERD, NAFLD, and fibromyalgia presents to ED due to 2 weeks of lumbar back pain that radiates down R anterior thigh. Patient states she was sitting with a patient at work where she works as a [employer] and felt some discomfort and aching in her right lumbar back. Patient states the aching travels down to the right anterior thigh, and feel a pulsating sensation in her rectal area. Patient states she took ibuprofen last night with no effect. Denies fall/injury, saddle anesthesia, bowel/bladder incontinence. Patient states she has follow up with her PCP on 05/20/2025. VS on initial observation-BP 147/80, pulse rate of 58, respiratory rate of 16, afebrile with oral temp 98.4?, O2 saturation 97% on room air. On physical exam patient is well-appearing, in no acute distress, nontoxic appearing. Patient has tenderness to palpation over right-sided lumbar paraspinal muscles, and SI joint, with a positive right straight leg test, SILT, strength 5/5 bilaterally, I had patient ambulate without ataxic gait, normal ambulation without compensating for pain, full ROM of spine including flexion, extension, lateral bending. Patient without saddle anesthesia, no bowel/bladder incontinence, able to ambulate with full normal gait, full ROM intact, SILT no history of IVDU- less likely cauda equina/SEA Patient medicated with 975mg po tylenol, 40mg prednisone, 30mg IM toradol and states pain has decreased dramatically. Will discharge with 5 day 40mg prednisone for radiculopathy, I discussed Flexeril prescription, however patient states she has Flexeril at home for history of cervical radiculopathy and pain. I counseled patient to follow up with her primary care provider which she has appointment on 05/20/2025. Patient is in agreement with the plan Differential Diagnosis Differential Diagnoses: The differential diagnosis associated with the presentation includes Cauda equina Spinal epidural abscess Lumbar radiculopathy Lumbar strain Admission/Observation Consideration of admission/observation: Escalation of care including admission/observation considered External Record Review External record reviewed: Inpatient record, Office record and Outpatient record Chronic Conditions Patient?s care impacted by: Other (GERD, NAFLD, and fibromyalgia) Discharge Plan Discharge Clinical Impression: Acute lumbar radiculopathy Patient Disposition: Home, Self-Care Additional Instructions: You were evaluated in the ED today due to lumbar back pain. You were medicated in the department with 40 mg of prednisone, 975 mg of oral Tylenol, and 30 mg of an intramuscular injection of Toradol with good effect on your pain. You are being prescribed a 5 day course of prednisone which is a steroid that can help with the radiating pain of your lumbar back. I considered prescribing you a course of Flexeril, however you stated you had this medication at home. You can take 5 mg of Flexeril every 8 hours, 500 mg of Tylenol every 6 hours, and 400 mg of ibuprofen every 6 hours for management of your lumbar back pain. I recommend that you follow up with your primary care doctor on your upcoming appointment to discuss lumbar back pain and ways to manage this. Please return to the emergency department if you experience worsening back pain, difficulty walking, decreased or loss of sensation in your right leg, urinary or bowel incontinence, chest pain, shortness of breath, fevers over 100.4? or any new/worsening/concerning symptoms. Prescriptions: New prednisone 20 mg tablet 40 mg PO DAILY Qty: 10 0RF No Action cyclobenzaprine 10 mg tablet 10 mg PO BID 30 Days Qty: 60 3RF diclofenac sodium [Voltaren Arthritis Pain] 1 % gel 2 g topical QID 30 Days Qty: 100 3RF Rx Instructions: apply to single elbow, wrist or hand; for hand includes palm/fingers/back of hand fluticasone propionate 50 mcg/actuation spray,suspension 1 spray intranasal DAILY 30 Days Qty: 16 3RF Rx Instructions: administer into each nostril gabapentin 300 mg capsule 300 mg PO TID 30 Days Qty: 90 3RF olopatadine [Pataday Once Daily Relief] 0.2 % drops 1 drp ophthalmic (eye) DAILY 30 Days Qty: 2.5 3RF midodrine 5 mg tablet 5 mg PO BID 30 Days Qty: 60 3RF Rx Instructions: do not give last dose of day after 6PM or within 4 hrs of bedtime esomeprazole magnesium [Nexium] 40 mg capsule,delayed release(DR/EC) 40 mg PO DAILY Qty: 30 5RF docusate sodium 50 mg capsule 50 mg PO DAILY Qty: 10 0RF topiramate 50 mg tablet 50 mg PO DAILY albuterol sulfate 90 mcg/actuation HFA aerosol inhaler 2 puff inhalation Q6H PRN (Reason: shortness of breath or wheezing) 30 Days Qty: 8.5 3RF montelukast 10 mg tablet 10 mg PO DAILY 30 Days Qty: 30 1RF cetirizine 10 mg tablet 10 mg PO DAILY PRN (Reason: allergies) cholecalciferol (vitamin D3) 25 mcg (1,000 unit) capsule 25 mcg PO DAILY 90 Days Qty: 90 1RF lorazepam 0.5 mg tablet 0.5 mg PO DAILY PRN (Reason: anxiety) 4 Days Qty: 4 0RF Rx Instructions: FOR FLYING ONLY sertraline 25 mg tablet 25 mg PO DAILY 30 Days Qty: 30 2RF Print Language: [place]
--- NOTE | 2025-05-08 09:29 | PC.NURSE ---
Pt states no recollection of injury to back, no fall, no Numbness/tingling in extremities, reports pain pulsates into vaginal area and right leg.
[2025-05-08 10:36] VITALS: BP 147/80; PULSE 58; RESP 16; TEMP 36.9; O2SAT 97
[2025-05-08 11:33] VITALS: BP 147/80; PULSE 58; RESP 16; TEMP 36.9; O2SAT 97
== END 2025-05-08 11:34 | disposition home or self-care (01) ==
PROVIDERS: Emergency Provider Emergency Medicine; PCP Physician Assistant
DX: M54.16 Radiculopathy, lumbar region (principal); M79.7 Fibromyalgia; K21.9 Gastro-esophageal reflux disease without esophagitis
CPT/HCPCS: 96372; 96374; 99284; J1885

== ENCOUNTER 2025-05-20 14:27 | Outpatient (AMB) | payer OTHER, SELFPAY ==
--- NOTE | 2025-05-20 15:10 | A.OFFPC_ITS ---
Vital Signs 05/20/25 15:13 Height 5 ft 1 in Weight 142 lb BMI 26.8 BP 104/58 L Blood Pressure Location Lt brachial Pulse 92 Pulse Source Pulse Oximeter Pulse Oximetry (%) 98 Oxygen Delivery Method Room Air Intake Visit Reasons: f/u Anxiety Chain Repairer Required: Yes Chain Repairer Language: Parliamentary Librarian Name: ID # Accompanied by: Self / Same As Patient Allergies oxycodone (From PERCOCET) Allergy (Intermediate, Verified 05/20/25 15:47) VOMITING/DIZZINESS tramadol (TRAMADOL) Allergy (Intermediate, Verified 05/20/25 15:47) DIZZINESS Medication List - Last Reconciled 05/20/25 by Fahad Bee PA-C albuterol sulfate 90 mcg/actuation 2 puffs inhalation Q6H PRN 30 days cetirizine 10 mg PO DAILY PRN cholecalciferol (vitamin D3) 25 mcg PO DAILY 90 days cyclobenzaprine 10 mg PO BID 30 days docusate sodium 50 mg PO DAILY esomeprazole magnesium (Nexium) 40 mg PO DAILY fluticasone propionate 50 mcg/actuation 1 spray intranasal DAILY 30 days topiramate 50 mg PO DAILY Tobacco use date assessed: 05/20/25 Dental Screening Dental Screen Date: 05/20/25 Did you have a dental visit in the last 12 months?: No Did you have a dental problem in the last 6 months where you did not have access to dental care?: No Was dental information given to patient?: No HPI f/u Anxiety HPI Details Patient is a 60-year-old female here today for follow-up visit. Patient has a past medical history significant for anxiety. Patient reports having low back pain that radiates into her in his region. She denies any constipation diarrhea or bloody stool. She was evaluated at the ER for this and was given Toradol injection. Signs and symptoms are concerning for an SI joint inflammation or dysfunction. Would likely benefit from physical therapy and she agrees. [facility] Medical History Acid reflux NAFLD (nonalcoholic fatty liver disease) Abdominal pain Surgical History H/O colonoscopy History of breast biopsy History of toe surgery History of hysterectomy History of thumb surgery History of carpal tunnel surgery of right wrist History of carpal tunnel surgery of left wrist Family History Father COPD (chronic obstructive pulmonary disease) Smoker Maternal Aunt Hypertension Sister Breast cancer Mother Hypertension Social History Household Members: Children Housing: Apartment Alcohol intake: never Patient Tobacco Use Status: Never used Tobacco e-Cigarette/Vaping Use: Never Used Second Hand Smoke Exposure: Yes service: No Current occupational status: unemployed 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 1. Little interest or pleasure in doing things: not at all 2. Feeling down, depressed, or hopeless: not at all 3. Trouble falling or staying asleep, or sleeping too much: not at all 4. Feeling tired or having little energy: nearly every day 5. Poor appetite or overeating: not at all 6. Feeling bad about yourself - or that you are a failure or have let yourself or your family down: not at all 7. Trouble concentrating on things, such as reading the newspaper or watching television: not at all 8. Moving or speaking so slowly that other people could have noticed. Or the opposite - being so fidgety or restless that you have been moving around a lot more than usual: not at all 9. Thoughts that you would be better off or of hurting yourself in some way: not at all Total score: 3 Depression Screening Interpretation: Positive Depression Screening Follow-up: Existing condition Depression Screening Done: Yes 78683 - PHQ-9 Billing: Yes Source: Developed by Drs. Landon Beltre, Khadra Tinajero, Robbi Baker and colleagues, with an educational floridalma from [employer]. Thrive Questionnaire Date Thrive assessed: 05/20/25 I am a: Patient What is your living situation today?: I have a steady place to live Within the past 12 months, did the food you bought not last and you didn't have the money to get more?: I choose not to answer this question Within the past 12 months, did you worry whether your food would run out before you got money to buy more?: I choose not to answer this question Do you have trouble paying for medicines?: I choose not to answer this question Do you have trouble getting transportation to medical appointments?: I choose not to answer this question Do you have trouble paying your heating and electricity bill?: I choose not to answer this question Do you have trouble taking care of your child, family member or friend?: I choose not to answer this question Do you have trouble with day-to-day activities such as bathing, preparing meals, shopping, managing finances, etc.?: I choose not to answer this question Are you currently unemployed and looking for a job?: I choose not to answer this question Are you interested in more education?: I choose not to answer this question Please select the resources that you would like help with: None Currently or been in a relationship where the following occur: I choose not to answer THRIVE Score: 0 AUDIT C Alcohol Use Questionnaire (AUDIT-C) 1. How often do you have a drink containing alcohol?: Never Total Score: 0 SHIRA-7 AMB Questionnaire SHIRA-7 Date SHIRA - 7 assessed: 05/20/25 Feeling nervous, anxious, or on edge: 0 = Not at all Not being able to stop or control worryin = Not at all Worrying too much about different things: 0 = Not at all Trouble relaxin = Not at all Being so restless that it is hard to sit still: 0 = Not at all Becoming easily annoyed or irritable: 0 = Not at all Feeling afraid as if something awful might happen: 0 = Not at all Total SHIRA-7 score (0-4 normal; 5-9 mild; 10-14 moderate; 15-21 severe): 0 Source: Developed by Drs. Landon Beltre, Khadra Tinajero, Robbi Baker and colleagues, with an educational floridalma from [employer]. SHIRA-7 Assessment Billing SHIRA-7 Assessment Tool: SHIRA-7 Assessment 98812 Review of Systems Const Denies headache(s) Eyes Denies loss of vision ENT Denies vertigo, Denies dizziness, Denies headache(s) and Denies sore throat Card Denies chest pain, Denies leg edema and Denies lightheadedness Resp Denies cough, Denies hemoptysis and Denies wheezing GI Denies abdominal pain, Denies melena, Denies constipation, Denies diarrhea and Denies vomiting Denies urinary frequency, Denies dysuria and Denies urinary urgency Musc Denies arthralgias, Denies joint swelling, Denies numbness and Denies tingling Neuro Denies Abnormal speech present, Denies behavioral changes, Denies vertigo, Denies dizziness, Denies headache(s), Denies loss of vision, Denies memory loss, Denies numbness and Denies tingling Psych Denies anxiety, Denies behavioral changes, Denies depression, Denies memory loss and Denies panic attacks Gorge/Lymph Denies easy bleeding and Denies easy bruising Aller/Immun Denies wheezing Physical exam (Primary Care) Vital Signs: Last Vital Signs Pulse 92 05/20/25 15:13 BP 104/58 L 05/20/25 15:13 Pulse Ox 98 05/20/25 15:13 Oxygen Delivery Method Room Air 05/20/25 15:13 BMI result Body Mass Index 26.8 Tobacco/Smoking Status: Tobacco use Status Tobacco use date assessed 05/20/25 05/20/25 15:20 Patient Tobacco Use Status Never used Tobacco 05/20/25 15:20 e-Cigarette/Vaping Use Never Used 05/20/25 15:20 PHQ-9: PHQ-9 Score PHQ-9: Total score 3 05/20/25 15:49 Depression Screening Interpretation: Positive Depression Screening Follow-up: Existing condition Thrive Assessment: Date of Thrive Assessment Date Thrive assessed 05/20/25 05/20/25 15:20 Currently or been in a relationship where the following occur: I choose not to answer Const General: healthy appearing, no acute distress, alert and awake Nutritional Appearance: well nourished Orientation/consciousness: oriented to person, oriented to place and oriented to time HENMT Ears: TM's normal bilaterally General nose exam: Normal nasal mucous membranes and turbinates present Eyes Conjunctivae: conjunctivae normal Sclerae: sclerae normal Pupils: Equal, round and reactive pupils present Neck Neck: Yes no lymphadenopathy and Yes no JVD Thyroid: Thyroid normal Carotids: no bruits Resp Effort & Inspection: normal respiratory effort and not tachypneic Auscultation: no crackles, no rales, no rhonchi and no wheezes Cardio Rate: regular rate Rhythm: regular rhythm Heart sounds: no murmurs and normal S1 and S2 GI Palpation (GI): Soft to palpation, nontender, no hepatomegaly and no splenomegaly Auscultation: normal bowel sounds Skin General skin exam: no rashes or lesions noted and dry skin Neuro General: oriented to person, oriented to place and oriented to time Cranial nerves: Yes Equal, round and reactive pupils present Speech: No Abnormal speech present Gait exam (Neuro): Normal gait present Motor exam (neuro): no tremor noted Extrem Right upper extremity: full ROM Left upper extremity: full ROM Right lower extremity: full ROM; no edema Left lower extremity: full ROM; no edema Psych Mental Status: mental status grossly normal Speech and movement: Normal speech and movement present Affect: normal affect Attitude: cooperative Thought process: Normal thought process present Coding Level of Care Code Est Pt Level 3 (98512) Diagnoses SI (sacroiliac) joint dysfunction M53.3 Acute right-sided low back pain with left-sided sciatica M54.42 Back pain laterality: right Chronicity: acute Sciatica laterality: sciatica of left side Sciatica presence: with sciatica Mild asthma without complication, unspecified whether persistent J45.909 Asthma complication type: uncomplicated Asthma persistence: unspecified Asthma severity: mild Fibromyalgia M79.7 Additional Codes SHIRA-7 Assessment Billing - SHIRA-7 Assessment Tool: SHIRA-7 Assessment 17384 ([id number]) PHQ-9 - 55949 - PHQ-9 Billing: Yes ([id number]) Assessment & Plan Assessment & Plan (1) SI (sacroiliac) joint dysfunction: Code(s): M53.3 - Sacrococcygeal disorders, not elsewhere classified Category: Medical Plan: As per HPI patient having lower back posterior pelvis pain concerning for an SI joint dysfunction. Will likely benefit from physical therapy. Will supply patient with Celebrex to use for joint inflammation and pain. Advised to continue using her cyclobenzaprine as needed (2) Low back pain: Code(s): M54.50 - Low back pain, unspecified Category: Medical Qualifiers: Back pain laterality: right Chronicity: acute Sciatica laterality: sciatica of left side Sciatica presence: with sciatica Qualified Code(s): M54.42 - Lumbago with sciatica, left side Plan: As per HPI patient having lower back posterior pelvis pain concerning for an SI joint dysfunction. Will likely benefit from physical therapy. Will supply patient with Celebrex to use for joint inflammation and pain. Advised to continue using her cyclobenzaprine as needed (3) Asthma: Code(s): J45.909 - Unspecified asthma, uncomplicated Category: Medical Qualifiers: Asthma complication type: uncomplicated Asthma persistence: unspecified Asthma severity: mild Qualified Code(s): J45.909 - Unspecified asthma, uncomplicated Plan: Patient reports her asthma is fairly well controlled with p.r.n. use of her albuterol inhaler. She denies any nighttime awakenings with asthma symptoms or recent asthma exacerbations. (4) Fibromyalgia: Code(s): M79.7 - Fibromyalgia Category: Medical Plan: As above a lot and for pain may be related to fibromyalgia as well this is unclear. Orders: Orders XR sacroiliac joint min 3V 05/20/25 M53.3 - Sacrococcygeal disorders, not elsewhere classified PT Evaluation and Treatment 05/20/25 M53.3 - Sacrococcygeal disorders, not elsewhere classified XR lumbar spine 2-3V 05/20/25 M54.42 - Lumbago with sciatica, left side Referrals Neurology Referral G43.009 - Migraine without aura, not intractable, without status migrainosus Medications: New riboflavin (vitamin B2) 50 mg PO DAILY 30 tabs 3RF 30 days G43.009 - Migraine without aura, not intractable, without status migrainosus, R51.9 - Headache, unspecified magnesium oxide 250 mg PO BID 60 tabs 3RF 30 days G43.009 - Migraine without aura, not intractable, without status migrainosus, R51.9 - Headache, unspecified rizatriptan take 1 tab at onset of headache; if no relief may repeat 1 tab after at least 2 hrs; max = 3 tabs/24 hr PO 9 tabs 0RF 30 days G43.009 - Migraine without aura, not intractable, without status migrainosus celecoxib (Celebrex) 200 mg PO DAILY 15 caps 0RF 15 days M54.42 - Lumbago with sciatica, left side
[2025-05-20 15:13] VITALS: BP 104/58; PULSE 92; O2SAT 98; BMI 26.8
--- OUTSIDE RECORDS SUMMARY | 2025-05-20 16:49 | XMS_ITS | Clinical Summary ---
Author Organization [employer] Address [address] [place] [address] Care Team Providers Care Director Geophysical Laboratory Name Role Phone Unavailable Primary Care Provider [...] 08/23/2023 06/28/2023 COVID-19 Vaccine (4 - season) 2025 10/30/2021, 01/07/2021, 12/11/2020 Influenza Vaccine (#1) 2025 [...]
== END 2025-05-20 16:15 | disposition home or self-care (01) ==
LOC: HO.HMCH 14:28
PROVIDERS: PCP Physician Assistant; Visit Provider Physician Assistant
DX: M53.3 Sacrococcygeal disorders, not elsewhere classified (principal); M54.42 Lumbago with sciatica, left side; J45.909 Unspecified asthma, uncomplicated; M79.7 Fibromyalgia

== ENCOUNTER → 2025-05-20 14:27 | Outpatient (BNVA) | payer OTHER, SELFPAY | PROVIDERS: PCP Physician Assistant; Visit Provider Physician Assistant | DX: M53.3 Sacrococcygeal disorders, not elsewhere classified (principal); M54.42 Lumbago with sciatica, left side; M79.7 Fibromyalgia; J45.909 Unspecified asthma, uncomplicated; F41.9 Anxiety disorder, unspecified; G43.009 Migraine without aura, not intractable, without status migrainosus | CPT/HCPCS: 96127; 99212 ==

== ENCOUNTER 2025-05-27 07:08 | Outpatient (REF) | payer OTHER, SELFPAY ==
--- NOTE | ~2025-05-27 | XR_ITS ---
EXAMINATION: XR SACROILIAC JOINT 3 OR MORE VIEWS HISTORY: M53.3 - Sacrococcygeal disorders, not elsewhere classified COMPARISON: Correlation is made with a plain film of the pelvis dated 06/20/2019. FINDINGS: Three views of the bilateral sacroiliac joints are submitted. Osseous mineralization is normal. The joint spaces are maintained. No erosions are seen. XR/XR sacroiliac joint min 3V IMPRESSION: Unremarkable examination of the sacroiliac joints. Electronically signed by: Landon Guy MD 05/27/2025 09:00 AM EDT
--- NOTE | ~2025-05-27 | XR_ITS ---
EXAMINATION: XR LUMBAR SPINE 2-3 VIEWS HISTORY: M54.42 - Lumbago with sciatica, left side COMPARISON: There are no prior studies for comparison. FINDINGS: AP, lateral, and coned down views of the lumbar spine are submitted. Osseous mineralization is normal. Five nonrib-bearing lumbar vertebral bodies are identified, maintaining normal height and alignment without evidence of fracture or spondylolisthesis. Minimal spurring is seen at multiple levels. The intervertebral disc spaces are preserved. The posterior elements are intact. The visualized paraspinal soft tissues are unremarkable. XR/XR lumbar spine 2-3V IMPRESSION: Minimal degenerative changes. Electronically signed by: Landon Guy MD 05/27/2025 08:26 AM EDT
--- OUTSIDE RECORDS SUMMARY | 2025-05-27 07:11 | XMS_ITS | Clinical Summary ---
Author Organization [employer] Address [address] [place] [address] Care Team Providers Care Community Health Nursing Director Name Role Phone Unavailable Primary Care Provider [...]
[2025-05-27 08:32] LABS: Hematocrit 39.6 % (37.0-47.0); Hemoglobin 13.4 g/dl (12.0-16.0); Mean Corpuscular HGB Conc 33.8 g/dl (31.0-35.0); Mean Corpuscular Hemoglobin 29.5 pg (27.0-33.0); Mean Corpuscular Volume 87.0 fL (80.0-98.0); NRBC Abs Auto 0.000 X10*3/uL (0.0-0.012); NRBC Pct Auto 0.0 /100WBC (0.0-0.2); Platelet Count 201 X10*3/uL (160-400); Red Blood Count 4.55 X10*6/uL (4.20-5.50); White Blood Count 7.2 X10*3/uL (4.8-10.8)
== END 2025-05-27 07:09 | disposition home or self-care (01) ==
LOC: HO.MRI 07:08
PROVIDERS: PCP Physician Assistant; Visit Provider Physician Assistant
DX: Z12.39 Encounter for other screening for malignant neoplasm of breast (principal); Z80.3 Family history of malignant neoplasm of breast; M53.3 Sacrococcygeal disorders, not elsewhere classified; M54.42 Lumbago with sciatica, left side; J45.909 Unspecified asthma, uncomplicated
CPT/HCPCS: 36415; 72100; 72202; 77049; 85027; A9585

== ENCOUNTER → 2025-05-27 07:15 | Outpatient (BNV) | payer OTHER, SELFPAY | PROVIDERS: PCP Physician Assistant; Visit Provider Radiology Diagnostic Radiology | DX: R92.8 Other abnormal and inconclusive findings on diagnostic imaging of breast (principal) | CPT/HCPCS: 72100; 72202; 77049 ==

== ENCOUNTER 2025-05-28 15:26 | Outpatient (AMB) | payer OTHER, SELFPAY ==
[2025-05-28 15:29] VITALS: BP 132/78; PULSE 82; O2SAT 99; BMI 26.8
--- NOTE | 2025-05-28 15:29 | MHC.OFFVIS ---
Vital Signs 05/28/25 15:29 Height 5 ft 1 in Weight 142 lb BMI 26.8 BP 132/78 Blood Pressure Location Rt brachial Position Sitting Pulse 82 Pulse Source Pulse Oximeter Pulse Oximetry (%) 99 Oxygen Delivery Method Room Air Intake Visit Reasons: 3 month Intake Note: ESTABLISHED PATIENT for mgmt of GERD w/ abd pain. Chief Complaint; Pt denies any new GI changes or sx since last visit. Confirms that she is taking Rx as instructed without complication. State Federal Relations Deputy Director Required: Yes State Federal Relations Deputy Director Services: State Federal Relations Deputy Director Present State Federal Relations Deputy Director Name: Bautista [phone] + [facility] Information Interpreted: clinical only Accompanied by: Self / Same As Patient Allergies oxycodone (From PERCOCET) Allergy (Intermediate, Verified 05/28/25 15:29) VOMITING/DIZZINESS tramadol (TRAMADOL) Allergy (Intermediate, Verified 05/28/25 15:29) DIZZINESS HPI HPI 3 month: Details: LAST VISIT: Acid reflux NAFLD (nonalcoholic fatty liver disease) Abdominal pain Plan Patient will be sent for upper GI with barium swallow continue Nexium. Avoid dietary triggers in late night snacking. Discussed with patient the importance of staying upright for minimal 3 hours after meals. Low FODMAP diet discussed with patient as well. List of food the recommended as well as list of food to avoid given to patient. Patient to follow-up in the office in 2-3 months, sooner on as needed basis. She is agreeable to this plan and verbalizes understanding of instructions. She was given the opportunity to ask questions and all questions answered. ? Thank you for allowing me to participate in her care Orders FL upper GI w Ba Swallow Today K21.9 TODAY'S VISIT Patient is here today for follow-up and to discuss going her colonoscopy. Patient reports symptoms have improved with esomeprazole. However patient reports that almost every day she has hicups. Patient denies any nausea or vomiting. Denies any dyspepsia, dysphagia or odynophagia. Upper GI series showed reflux and gastric secretions. Patient had colonoscopy in 2019 and was recommended to return her colonoscopy screening in 5 years. Patient denies any melena, hematochezia, unintentional weight loss or ribbon like stools. Patient is not on any anticoagulation medication. In no history of sleep apnea. Denies any cardiac or respiratory symptoms. [facility] Medical History Acid reflux NAFLD (nonalcoholic fatty liver disease) Abdominal pain Surgical History H/O colonoscopy History of breast biopsy History of toe surgery History of hysterectomy History of thumb surgery History of carpal tunnel surgery of right wrist History of carpal tunnel surgery of left wrist Family History Father COPD (chronic obstructive pulmonary disease) Smoker Maternal Aunt Hypertension Sister Breast cancer Mother Hypertension Social History Household Members: Children Housing: Apartment Alcohol intake: never Patient Tobacco Use Status: Never used Tobacco e-Cigarette/Vaping Use: Never Used Second Hand Smoke Exposure: Yes service: No Current occupational status: unemployed 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 Cognitive needs: No Hearing needs: No Vision needs: Yes Review of Systems Const Denies weight gain and Denies weight loss ENT Reports no additional complaints, Denies dysphagia and Denies odynophagia Card Reports no additional complaints Resp Reports no additional complaints GI Denies abdominal pain, Denies belching, Denies melena, Denies bloating, Denies change in bowel habits, Denies dysphagia, Denies excessive flatus, Denies dyspepsia, Denies heartburn, Denies diarrhea, Denies loose stools, Denies nausea, Denies odynophagia and Denies vomiting Musc Reports no additional complaints Neuro Reports no additional complaints Psych Reports no additional complaints Endo Reports no additional complaints Physical Exam Vital Signs: Last Vital Signs Pulse 82 05/28/25 15:29 BP 132/78 05/28/25 15:29 Pulse Ox 99 05/28/25 15:29 Oxygen Delivery Method Room Air 05/28/25 15:29 BMI result Body Mass Index 26.8 Const General: healthy appearing, no acute distress and well developed Nutritional Appearance: well nourished Orientation/consciousness: patient oriented x3 Resp Effort & Inspection: normal respiratory effort, able to speak in complete sentences, no tracheal deviation and symmetric chest movement Auscultation: clear to auscultation bilaterally Cardio Rate: regular rate GI Inspection: Yes normal to inspection and No distended Palpation (GI): Soft to palpation, not firm, nontender and No hepatosplenomegaly present Auscultation: normal bowel sounds General: Yes no CVA tenderness Back/Spine/Pelvis Back: no CVA tenderness Skin General skin exam: elasticity normal, turgor normal and dry skin Neuro General: patient oriented x3 Psych Appearance: grossly normal Mental Status: mental status grossly normal Results Reviewed Results Reviewed: UPPER GI SERIES WITH BARIUM SWALLOW IMPRESSION: Increased gastric secretions suggestive of hyper acidity. Moderate size mediastinal reflux without hiatal hernia. Assessment & Plan Assessment & Plan (1) Acid reflux: Code(s): K21.9 - Gastro-esophageal reflux disease without esophagitis Category: Medical Qualifiers: Esophagitis presence: esophagitis presence not specified Qualified Code(s): K21.9 - Gastro-esophageal reflux disease without esophagitis (2) Dysphagia: Code(s): R13.10 - Dysphagia, unspecified Category: Medical Qualifiers: Dysphagia type: pharyngoesophageal phase Qualified Code(s): R13.14 - Dysphagia, pharyngoesophageal phase (3) NAFLD (nonalcoholic fatty liver disease): Code(s): K76.0 - Fatty (change of) liver, not elsewhere classified Category: Medical (4) Abdominal pain: Code(s): R10.9 - Unspecified abdominal pain Category: Medical Qualifiers: Abdominal location: left upper quadrant Qualified Code(s): R10.12 - Left upper quadrant pain (5) Epigastric pain: Code(s): R10.13 - Epigastric pain Category: Medical (6) Hiccups: Code(s): R06.6 - Hiccough Plan Patient will continue taking Nexium every morning. Avoid dietary triggers and late night snacking. Staying upright for minimal 3 hours after meals discussed with patient. Patient will be sent for upper endoscopy the same time as she go for colonoscopy. Patient is due to go for colonoscopy. What to expect before during and after procedure discussed with patient. Stressed the importance of good bowel prep and clear liquid diet day before procedure. Patient denies any issues with anesthesia in the past. No history of sleep apnea. Denies any cardiac or respiratory symptoms. I will see patient after the procedure, sooner on as needed basis. Patient is agreeable to this plan and verbalizes understanding of instructions. She was given the opportunity to ask questions and all questions answered. Thank you for allowing me to participate in her care Medications: New bisacodyl (Dulcolax (bisacodyl)) take 4 tabs at noon the day before your colonoscopy 20 mg (4 x 5 mg) PO ONCE 4 tabs 0RF constipation 1 day Z12.11 - Encounter for screening for malignant neoplasm of colon polyethylene glycol 3350 (Miralax) As directed by gastroenterology department at [facility] 238 grams PO ONCE 238 grams 0RF Z12.11 - Encounter for screening for malignant neoplasm of colon Refilled esomeprazole magnesium (Nexium) 40 mg PO DAILY 90 caps 3RF K21.9 - Gastro-esophageal reflux disease without esophagitis Coding Level of Care Code Est Pt Level 4 (53983) Complex EM visit Add On G2211 Diagnoses Gastroesophageal reflux disease, unspecified whether esophagitis present K21.9 Esophagitis presence: esophagitis presence not specified Pharyngoesophageal dysphagia R13.14 Dysphagia type: pharyngoesophageal phase NAFLD (nonalcoholic fatty liver disease) K76.0 Left upper quadrant abdominal pain R10.12 Abdominal location: left upper quadrant Epigastric pain R10.13 Hiccups R06.6 Time Spent (min) 40 Comment 25 minutes spent with patient and additional 15 minutes spent reviewing her records
--- OUTSIDE RECORDS SUMMARY | 2025-05-28 18:48 | XMS_ITS | Clinical Summary ---
Author Organization [employer] Address [address] [place] [address] Care Team Providers Care Locomotive Switch Operator Name Role Phone Unavailable Primary Care Provider [...]
== END 2025-05-28 16:14 | disposition home or self-care (01) ==
LOC: HO.HGI 15:28
PROVIDERS: PCP Physician Assistant; Visit Provider Nurse Practitioner Family
DX: K21.9 Gastro-esophageal reflux disease without esophagitis (principal); R13.14 Dysphagia, pharyngoesophageal phase; K76.0 Fatty (change of) liver, not elsewhere classified; R10.12 Left upper quadrant pain; R10.13 Epigastric pain; R06.6 Hiccough
CPT/HCPCS: 99214

== ENCOUNTER → 2025-05-28 15:26 | Outpatient (BNVA) | payer OTHER, SELFPAY | PROVIDERS: PCP Physician Assistant; Visit Provider Nurse Practitioner Family | DX: Z01.818 Encounter for other preprocedural examination (principal); K21.9 Gastro-esophageal reflux disease without esophagitis; R13.14 Dysphagia, pharyngoesophageal phase; K76.0 Fatty (change of) liver, not elsewhere classified; R10.12 Left upper quadrant pain; R10.13 Epigastric pain; R06.6 Hiccough | CPT/HCPCS: 99212 ==

== ENCOUNTER 2025-06-06 13:53 | Outpatient (REF) | payer OTHER, SELFPAY ==
--- NOTE | ~2025-06-06 | US_ITS ---
EXAMINATION(S): 1. MM DIAGNOSTIC DIGITAL BREAST TOMOSYNTHESIS, RIGHT 2. Targeted ultrasound of the right breast 3. Targeted ultrasound of the left breast CLINICAL INFORMATION: -Callback from screening mammogram from May 03, 2025 for right breast mass in the upper central breast. - MR directed ultrasound of the left breast recommended on MRI obtained on May 27, 2025 for the following findings: --0.5 cm enhancing focus in the upper inner quadrant (1041:61/126) at 3.5 cm cm from the nipple. --0.5 cm enhancing focus in the lower inner quadrant (1041:73/126) at 5.4 cm from the nipple. - On the day of the MR examination, patient indicates area of right breast palpable lump and pain, which appears not have been previously evaluated. COMPARISON: Screening mammogram on May 03, 2025. Breast MRI of May 27, 2025. TECHNIQUE: Digital breast tomosynthesis is performed in full field ML 90 degrees along with computer-aided detection (CAD). Synthesized 2D images are generated from the tomosynthesis. Spot compression tomosynthesis were obtained. FINDINGS: BREAST COMPOSITION: There are scattered areas of fibroglandular density. RIGHT BREAST: -Note that the skin BB marker placed at the location of the palpable concern correlates with the location of the known cyst in the upper breast. On the MR examination, this does not have suspicious features. Spot compression views redemonstrate previously described mass and known cyst that measures approximately 2.4 cm at about 3 to 4 cm from the nipple (ML 90 degrees 26/54, spot CC 33/58). Targeted ultrasound of the right breast was performed at the location of the palpable concern that correlates with mammographic mass which in turns corresponds to the known cyst. The survey shows a 2.3 x 1.0 x 2.2 cm simple cyst at 12 o'clock position 2 cm from the nipple. No internal vascularity demonstrated with color Doppler evaluation. LEFT BREAST: Targeted ultrasound of the left breast was performed at the location of the MR findings. The survey shows the following: -0.5 x 0.5 x 0.4 cm septated cyst at 8 o'clock position 6 cm from the nipple. No internal vascularity demonstrated with color Doppler evaluation. -0.5 x 0.3 x 0.5 cm simple cyst at 10 o'clock position 3 cm from the nipple. No internal vascularity demonstrated with color Doppler evaluation. Above cysts are benign, however, difficult to be certain that they correlate with the MR findings. US/US Breast BI Limited Mamm Only IMPRESSION: RIGHT BREAST: Palpable concern and mammographic mass correlates with a 2.2 cm simple cyst at 12 o'clock position at 2 cm from the nipple. Benign, no evidence of malignancy. Normal interval follow-up is recommended in 12 months. LEFT BREAST: 0.5 cm septated cyst at 8:00 6 cm from the nipple and 0.5 cm simple cyst at 10:00 3 cm from the nipple. Benign, no evidence of malignancy. No dedicated sonographic follow-up needed. However, difficult to be certain that they correlate with the enhancing foci described on the recent MR study. Therefore, a 6 month follow-up MRI is recommended. ASSESSMENT: Category 3: Probably benign RECOMMENDATION: 6 Month F/U Results were provided to the patient at time of visit by the technologist. This patient's information was entered into a reminder system with a target due date for their next mammogram. Electronically signed by: Quiana Boyle MD 06/06/2025 06:25 PM EDT
--- OUTSIDE RECORDS SUMMARY | 2025-06-06 18:23 | XMS_ITS | Clinical Summary ---
Author Organization [employer] Address [address] [place] [address] Care Team Providers Care Can Handler Name Role Phone Unavailable Primary Care Provider [...]
== END 2025-06-06 13:54 | disposition home or self-care (01) ==
LOC: HO.MAMMO 13:53
PROVIDERS: PCP Physician Assistant; Visit Provider Physician Assistant
DX: N63.15 Unspecified lump in the right breast, overlapping quadrants (principal); N60.01 Solitary cyst of right breast; N60.02 Solitary cyst of left breast
CPT/HCPCS: 76642; 77061; 77065

== ENCOUNTER → 2025-06-06 14:30 | Outpatient (BNV) | payer OTHER, SELFPAY | PROVIDERS: PCP Physician Assistant; Visit Provider Radiology Body Imaging | DX: N60.01 Solitary cyst of right breast (principal); N60.12 Diffuse cystic mastopathy of left breast | CPT/HCPCS: 76642; 77061; 77065 ==